=== PATIENT | female | born 1935 | race African-American/Black ===

== ENCOUNTER 2018-08-19 11:18 | Inpatient (IN) | payer MEDICAID, MEDICARE ==
[~2018-08-19] VITALS: Ht 152.4 cm; Wt 59.0 kg
[~2018-08-19 11:18] MED LIST: AMLODIPINE; CETI10TA16 PO; DIAZ2TAB PO; DOXY100T PO; GABA-586 PO; LEVO75TA5 PO; OMEP40CA5 PO; POTA20TA12 PO; PRED50TA PO; SERT50TA8 PO
--- NOTE | 2018-08-19 13:03 | PHYS DOC ---
Past Medical History Past Medical History: Anxiety, COPD, Depression, Hypertension Past Surgical History: Hysterectomy, Other Additional Past Surgical Histo: Thyroidectomy 1992 Alcohol Use: None Drug Use: None Adult General Chief Complaint Chief Complaint: OTHER COMPLAINTS [facility] HPI Patient is a 82 year old female who presents with was diagnosed at with a parotid gland stone. She states that back in June [facility] drained and now it is gotten bigger has not gone down. She states it is hard and painful and bigger. She denies fever,. She does smoke cigarettes. She rates her pain a 6 out of 10. Her primary care is Dr. Khan. She is a allergic to naproxen. She currently takes amlodipine, meclizine, potassium, sertraline, gabapentin, baclofen, levothyroxine. Review of Systems Review of Systems Constitutional: Denies fever or chills [] Eyes: Denies change in visual acuity, redness, or eye pain [] HENT: Large hard golf ball sized right sided parotid gland. Denies nasal congestion or sore throat [] Respiratory: Denies cough or shortness of breath [] Cardiovascular: No additional information not addressed in HPI [] GI: Denies abdominal pain, nausea, vomiting, bloody stools or diarrhea [] : Denies dysuria or hematuria [] Musculoskeletal: Denies back pain or joint pain [] Integument: Denies rash or skin lesions [] Neurologic: Denies headache, focal weakness or sensory changes [] All other systems were reviewed and found to be within normal limits, except as documented in this note. Allergies Allergies Allergies Coded Allergies Type Severity Reaction Last Updated Verified No Known Drug Allergies 07/13/15 No Physical Exam Physical Exam Constitutional: Well developed, well nourished, no acute distress, non-toxic appearance. [] HENT: Golf ball sized right sided parotid gland. Normocephalic, atraumatic, bilateral external ears normal, oropharynx moist, no oral exudates, nose normal. [] Eyes: PERRLA, EOMI, conjunctiva normal, no discharge. [] Neck: Normal range of motion, no tenderness, supple, no stridor. [] Cardiovascular:Heart rate regular rhythm, no murmur [] Lungs & Thorax: Bilateral breath sounds clear to auscultation [] Abdomen: Bowel sounds normal, soft, no tenderness, no masses, no pulsatile masses. [] Skin: Warm, dry, no erythema, no rash. [] Back: No tenderness, no CVA tenderness. [] Extremities: No tenderness, no cyanosis, no clubbing, ROM intact, no edema. [] Neurologic: Alert and oriented X 3, normal motor function, normal sensory function, no focal deficits noted. [] Psychologic: Affect normal, judgement normal, mood normal. [] Current Patient Data Vital Signs Vital Signs Date Time Temp Pulse Resp B/P (MAP) Pulse Ox O2 Delivery O2 Flow Rate FiO2 08/19/18 11:55 98.2 83 20 143/68 (93) 96 Room Air 98.2 Lab Values Laboratory Tests Test 08/19/18 13:30 White Blood Count 6.1 x10^3/uL (4.0-11.0) Red Blood Count 4.47 x10^6/uL (3.50-5.40) Hemoglobin 13.9 g/dL (12.0-15.5) Hematocrit 39.7 % (36.0-47.0) Mean Corpuscular Volume 89 fL (79-100) Mean Corpuscular Hemoglobin 31 pg (25-35) Mean Corpuscular Hemoglobin Concent 35 g/dL (31-37) Red Cell Distribution Width 15.1 % (11.5-14.5) H Platelet Count 356 x10^3/uL (140-400) Neutrophils (%) (Auto) 59 % (31-73) Lymphocytes (%) (Auto) 29 % (24-48) Monocytes (%) (Auto) 8 % (0-9) Eosinophils (%) (Auto) 3 % (0-3) Basophils (%) (Auto) 1 % (0-3) Neutrophils # (Auto) 3.6 x10^3uL (1.8-7.7) Lymphocytes # (Auto) 1.7 x10^3/uL (1.0-4.8) Monocytes # (Auto) 0.5 x10^3/uL (0.0-1.1) Eosinophils # (Auto) 0.2 x10^3/uL (0.0-0.7) Basophils # (Auto) 0.1 x10^3/uL (0.0-0.2) Sodium Level 138 mmol/L (136-145) Potassium Level 3.6 mmol/L (3.5-5.1) Chloride Level 98 mmol/L (98-107) Carbon Dioxide Level 29 mmol/L (21-32) Anion Gap 11 (6-14) Blood Urea Nitrogen 4 mg/dL (7-20) L Creatinine 1.0 mg/dL (0.6-1.0) Estimated GFR (Cockcroft-Gault) 64.1 Glucose Level 119 mg/dL (70-99) H Calcium Level 9.8 mg/dL (8.5-10.1) Laboratory Tests 08/19/18 13:30 Laboratory Tests 08/19/18 13:30 EKG EKG [] Radiology/Procedures Radiology/Procedures [] Impressions: [facility] [address] [place] [address] IMAGING REPORT Signed PATIENT: SHANTA MONDRAGON ACCOUNT: [id number] : 1935 LOCATION: [address] [place] [address] AGE: 82 SEX: F EXAM STATUS: ADM IN ORD. PHYSICIAN: MAIN ATKINSON APRN REASON: PAROTID GLAND LARGE AND HARD PROCEDURE: CT SOFT TISSUE NECK W/CONTRAST CT study soft tissues the neck with contrast Clinical indications: Right parotid gland swelling since June 2018. Right parotid gland is enlarged and hard. TECHNIQUE: After IV infusion of 70 mL of Omnipaque 300, helical CT scanning of the soft tissues the neck was performed from the base of skull down to the lung apices. PQRS compliance Statement One or more of the following individualized dose reduction techniques were utilized for this study: 1. Automated exposure control 2. Adjustment of the mA and/or kV according to patient size 3. Use of iterative reconstruction technique COMPARISON: No previous CT study of the neck available. FINDINGS: There is a large round hypodense mass within the right parotid gland with Hounsfield unit measurements in the 30s. There is peripheral rim type enhancement. This mass measures 3.3 cm in greatest dimension. Mass is located within the superficial lobe of the right parotid gland. Mild subcutaneous soft tissue edema is seen adjacent to the right parotid gland. The left parotid gland and both submandibular salivary glands are unremarkable. No enlarged cervical lymphadenopathy is evident. The adenoids are not abnormally enlarged. No abnormal enlargement of the palatine tonsils is seen. The true cords and false cords and epiglottis and aryepiglottic folds are unremarkable. No prevertebral soft tissue swelling is evident. Calcified lymph nodes are seen within the upper mediastinum secondary to old granulomatous disease. There is emphysema within both upper lobes. No opacification of the paranasal sinuses or mastoid sinuses or middle ear cavities is seen. The orbits are symmetric. IMPRESSION: 3.3 cm hypodense mass of the right parotid gland with peripheral rim type enhancement. Therefore, this could represent an abscess but the central aspect does not demonstrate Hounsfield unit measurements typical of fluid. It is possible that this could represent complex fluid or hemorrhage related to an abscess but sonography is recommended for further evaluation specifically to determine whether fluid is present within the nodule or internal vascularity. i.e. excluding a solid mass. There is no associated enlarged cervical lymphadenopathy. Electronically signed by: Ricardo Palacio MD (08/19/2018 3:13 PM) [facility] [place] DICTATED and SIGNED BY: RICARDO PALACIO MD DATE: 08/19/18 1505 Course & Med Decision Making Course & Med Decision Making Patient is a 82 year old female who presents with was diagnosed at with a parotid gland stone. She states that back in June [facility] drained and now it is gotten bigger has not gone down. She states it is hard and painful and bigger. She denies fever,. She does smoke cigarettes. She rates her pain a 6 out of 10. Her primary care is Dr. Khan. She is a allergic to naproxen. She currently takes amlodipine, meclizine, potassium, sertraline, gabapentin, baclofen, levothyroxine. Patient has a very large, golf ball sized, hard, tender chronic tingling into her right parotid gland. Patient is unable to tell me what her biopsy came back as the did or what her follow-up plan was supposed to be. I' ll patient states that she does not like [facility]. The area is not abscess or draining and does not extend into her oral cavity. The mucosa in her oral cavity is pink and without exudates. I told the patient that we do not currently have ENT at [facility] and that the best thing for her would be to go back to and follow-up with the ENT specialist that she did bear that did her procedures and has all the records. [place] had a ENT Dr. Figueredo on-call today and I have spoken to her and she states that the patient needs to be admitted to the hospital, receive antibiotics, a CT of her neck, and that she will see her either tonight or in the morning and will likely drain the gland. Patient is agreeable to this treatment plan. I have spoken to Dr. Erazo and the patient will be admitted. Dragon Disclaimer Dragon Disclaimer This electronic medical record was generated, in whole or in part, using a voice recognition dictation system. Departure Departure Impression: Primary Impression: Parotid duct obstruction Additional Impression: Parotid gland pain Disposition: ADMITTED INPATIENT Admitting Physician: Xie. Ramirez Condition: STABLE Referrals: ARACELI KHAN MD (PCP) Problem Qualifiers MAIN ATKINSON [employer] Aug 19, 2018 13:03
[2018-08-19 13:42] LABS: BASO # 0.1 x10^3/uL (0.0-0.2); BASO % 1 % (0-3); EOS # 0.2 x10^3/uL (0.0-0.7); EOS % 3 % (0-3); HEMATOCRIT 39.7 % (36.0-47.0); HEMOGLOBIN 13.9 g/dL (12.0-15.5); LYMPH # 1.7 x10^3/uL (1.0-4.8); LYMPH % 29 % (24-48); MEAN CORPUSCULAR HEMOGLOBIN 31 pg (25-35); MEAN CORPUSCULAR HGB CONC 35 g/dL (31-37); MEAN CORPUSCULAR VOLUME 89 fL (79-100); MONO # 0.5 x10^3/uL (0.0-1.1); MONO % 8 % (0-9); NEUT # 3.6 x10^3uL (1.8-7.7); NEUT % 59 % (31-73); PLATELET COUNT 356 x10^3/uL (140-400); RED BLOOD COUNT 4.47 x10^6/uL (3.50-5.40); RED CELL DISTRIBUTION WIDTH 15.1 % (11.5-14.5); WHITE BLOOD COUNT 6.1 x10^3/uL (4.0-11.0)
[2018-08-19] MEDS ORDERED: ONDANSETRON PF 4 MG/2 ML VIAL. IV PRN ×2 (13:45→15:15)
[2018-08-19] MEDS ORDERED: ACETAMINOPHEN 325 MG TABLET. PO PRN ×2 (13:45→15:15)
[2018-08-19] MEDS ORDERED: fentaNYL PF VIAL 100 MCG/2 ML VIAL IV PRN (13:45)
[2018-08-19 13:50] LABS: CALCIUM 9.8 mg/dL (8.5-10.1); GFR 64.1; POTASSIUM 3.6 mmol/L (3.5-5.1)
[2018-08-19] MEDS ORDERED: CLINDAMYCIN 600MG PREMIX 50 ML IV ONE (14:00)
[2018-08-19] MEDS: IV NORMAL SALINE 1000ML BAG 1,000 ML IV SCH (14:06)
[2018-08-19] MEDS ORDERED: CONTRAST GIVEN. MC PRN (14:15)
[2018-08-19] MEDS ORDERED: IOHEXOL 300 MG/ML 100ML VIAL. IV ONE (14:30)
--- NOTE | 2018-08-19 15:12 | PDOC1 ---
History and Physical Date of Admission Date of Admission 08/19/18 Identification/Chief Complaint Chief Complaint rt face swelling Source Source: Chart review, Patient History of Present Illness History of Present Illness HPI HPI Patient is a 82 year old female came for rt face swelling. pt said she started to have rt face swelling end of Jun, it was soft, movable, painful, 6/10 getting bigger. Then she went to , stayed for 4 nights, got drained and said it was not infection or malignancy and they told her it may go away. as per ERP, she was diagnosed at with a parotid gland stone. She saw PCP 3 weeks ago , nothing was done. Pt not wanna go back to . She then feels the nodule gets bigger, hard, not movable, no pain. came to ER. Denies fever, chills, cough, sob, N/V , abd pain. no hearing loss. no skin lesions or discharge. smokes cigarettes sometimes, lost 1-2 lbs recently. Past Medical History Cardiovascular: HTN GI: No pertinent hx Psych: Anxiety, Depression Endocrine: Diabetes, Hypothyroidism Past Surgical History Past Surgical History Hysterectomy, Other Additional Past Surgical Histo: Thyroidectomy 1992 Family History Family History: Hypertension Social History Smoke: <1 pack per day ALCOHOL: none Drugs: None Current Problem List Problem List Problems Medical Problems: (1) Parotid duct obstruction Status: Acute (2) Parotid gland pain Status: Acute Current Medications Current Medications Current Medications Medications (Trade) Dose Ordered Sig/Liyah Start Time Stop Time Status Last Admin Dose Admin Acetaminophen (Tylenol) 650 mg PRN Q4HRS PRN 08/19/18 13:45 08/20/18 13:44 08/19/18 14:08 650 MG Clindamycin Phosphate 50 ml @ 100 mls/hr 1X ONCE 08/19/18 14:00 08/19/18 14:29 DC 08/19/18 14:06 100 MLS/HR Fentanyl Citrate (Fentanyl 2ml Vial) 50 mcg PRN Q2HR PRN 08/19/18 13:45 08/20/18 13:44 08/19/18 14:07 50 MCG Info (CONTRAST GIVEN -- Rx MONITORING) 1 each PRN DAILY PRN 08/19/18 14:15 08/21/18 14:14 Iohexol (Omnipaque 300 Mg/ml) 70 ml 1X ONCE 11/6/18 14:30 08/19/18 14:31 DC 08/19/18 14:29 70 ML Ondansetron HCl (Zofran) 4 mg PRN Q8HRS PRN 08/19/18 13:45 08/20/18 13:44 08/19/18 14:07 4 MG Sodium Chloride 1,000 ml @ 75 mls/hr [id number] 08/19/18 15:00 08/19/18 14:06 75 MLS/HR Allergies Allergies Allergies Coded Allergies Type Severity Reaction Last Updated Verified No Known Drug Allergies 07/13/15 No ROS Review of System CONSTITUTIONAL: No fever or chills EYES: No recent changes SKIN: No rash or itching CARDIOVASCULAR: No chest pain, syncope, palpitations, or edema RESPIRATORY: No SOB or cough GASTROINTESTINAL: No nausea, vomiting or abdominal pain NEUROLOGICAL: No headaches or weakness ENDOCRINE: No cold or heat intolerance GENITOURINARY: No urgency or frequency of urination MUSCULOSKELETAL: No back pain or joint pain LYMPHATICS: No enlarged lymph nodes PSYCHIATRIC: No anxiety or depression Physical Exam Physical Exam GEN.: No apparent distress. Alert and oriented. HEENT: rt face parotid area has a diameter 4x4cm nodule, moderate hard, slightly movable, no tenderness. NECK: Supple. LUNGS: Clear to auscultation. HEART: RRR, S1, S2 present. Peripheral pulses intact ABDOMEN: Soft, nontender. Positive bowel sounds. EXTREMITIES: Without any cyanosis. NEUROLOGIC: Normal speech, normal tone PSYCHIATRIC: Normal affect, normal mood. SKIN: No ulcerations Vitals Vitals Vital Signs Date Time Temp Pulse Resp B/P (MAP) Pulse Ox O2 Delivery O2 Flow Rate FiO2 08/19/18 14:07 20 08/19/18 11:55 98.2 83 143/68 (93) 96 Room Air 98.2 Labs Labs Laboratory Tests Test 08/19/18 13:30 White Blood Count 6.1 x10^3/uL (4.0-11.0) Red Blood Count 4.47 x10^6/uL (3.50-5.40) Hemoglobin 13.9 g/dL (12.0-15.5) Hematocrit 39.7 % (36.0-47.0) Mean Corpuscular Volume 89 fL (79-100) Mean Corpuscular Hemoglobin 31 pg (25-35) Mean Corpuscular Hemoglobin Concent 35 g/dL (31-37) Red Cell Distribution Width 15.1 % (11.5-14.5) Platelet Count 356 x10^3/uL (140-400) Neutrophils (%) (Auto) 59 % (31-73) Lymphocytes (%) (Auto) 29 % (24-48) Monocytes (%) (Auto) 8 % (0-9) Eosinophils (%) (Auto) 3 % (0-3) Basophils (%) (Auto) 1 % (0-3) Neutrophils # (Auto) 3.6 x10^3uL (1.8-7.7) Lymphocytes # (Auto) 1.7 x10^3/uL (1.0-4.8) Monocytes # (Auto) 0.5 x10^3/uL (0.0-1.1) Eosinophils # (Auto) 0.2 x10^3/uL (0.0-0.7) Basophils # (Auto) 0.1 x10^3/uL (0.0-0.2) Sodium Level 138 mmol/L (136-145) Potassium Level 3.6 mmol/L (3.5-5.1) Chloride Level 98 mmol/L (98-107) Carbon Dioxide Level 29 mmol/L (21-32) Anion Gap 11 (6-14) Blood Urea Nitrogen 4 mg/dL (7-20) Creatinine 1.0 mg/dL (0.6-1.0) Estimated GFR (Cockcroft-Gault) 64.1 Glucose Level 119 mg/dL (70-99) Calcium Level 9.8 mg/dL (8.5-10.1) Laboratory Tests Test 08/19/18 13:30 White Blood Count 6.1 x10^3/uL (4.0-11.0) Red Blood Count 4.47 x10^6/uL (3.50-5.40) Hemoglobin 13.9 g/dL (12.0-15.5) Hematocrit 39.7 % (36.0-47.0) Mean Corpuscular Volume 89 fL (79-100) Mean Corpuscular Hemoglobin 31 pg (25-35) Mean Corpuscular Hemoglobin Concent 35 g/dL (31-37) Red Cell Distribution Width 15.1 % (11.5-14.5) Platelet Count 356 x10^3/uL (140-400) Neutrophils (%) (Auto) 59 % (31-73) Lymphocytes (%) (Auto) 29 % (24-48) Monocytes (%) (Auto) 8 % (0-9) Eosinophils (%) (Auto) 3 % (0-3) Basophils (%) (Auto) 1 % (0-3) Neutrophils # (Auto) 3.6 x10^3uL (1.8-7.7) Lymphocytes # (Auto) 1.7 x10^3/uL (1.0-4.8) Monocytes # (Auto) 0.5 x10^3/uL (0.0-1.1) Eosinophils # (Auto) 0.2 x10^3/uL (0.0-0.7) Basophils # (Auto) 0.1 x10^3/uL (0.0-0.2) Sodium Level 138 mmol/L (136-145) Potassium Level 3.6 mmol/L (3.5-5.1) Chloride Level 98 mmol/L (98-107) Carbon Dioxide Level 29 mmol/L (21-32) Anion Gap 11 (6-14) Blood Urea Nitrogen 4 mg/dL (7-20) Creatinine 1.0 mg/dL (0.6-1.0) Estimated GFR (Cockcroft-Gault) 64.1 Glucose Level 119 mg/dL (70-99) Calcium Level 9.8 mg/dL (8.5-10.1) VTE Prophylaxis Ordered VTE Prophylaxis Devices: Yes VTE Pharmacological Prophylaxi: No Assessment/Plan Assessment/Plan rt facial/parotid swelling, not clear etiology HTN COPD stable depression hypothyroidism tobaccoism plan: ER [employer] called ENT dr. Figueredo, ordered ct neck , result pending, will come to see pt need verify home meds labetolol, albuterol prn npo for now incase need bx if not can eat later then NPO MN dvt ppx tmr LUIGI ZAPATA MD Aug 19, 2018 15:12
[2018-08-19] MEDS ORDERED: traMADol 50 MG TABLET PO PRN (15:15)
[2018-08-19] MEDS ORDERED: ALBUTEROL SULFATE 2.5 MG/3 ML NEBU. NEB PRN (15:15)
[2018-08-19] MEDS ORDERED: MORPHINE SULFATE 2 MG/ML VIAL. IV PRN (15:15)
[2018-08-19] MEDS ORDERED: LABETALOL 20 MG/4 ML DISP.SYRIN. IVP PRN (15:15)
[2018-08-19] MEDS ORDERED: DOCUSATE SODIUM 100 MG CAPSULE. PO PRN (15:15)
--- NOTE | 2018-08-19 15:17 | RAD ---
CT study soft tissues the neck with contrast Clinical indications: Right parotid gland swelling since June 2018. Right parotid gland is enlarged and hard. TECHNIQUE: After IV infusion of 70 mL of Omnipaque 300, helical CT scanning of the soft tissues the neck was performed from the base of skull down to the lung apices. PQRS compliance Statement One or more of the following individualized dose reduction techniques were utilized for this study: 1. Automated exposure control 2. Adjustment of the mA and/or kV according to patient size 3. Use of iterative reconstruction technique COMPARISON: No previous CT study of the neck available. FINDINGS: There is a large round hypodense mass within the right parotid gland with Hounsfield unit measurements in the 30s. There is peripheral rim type enhancement. This mass measures 3.3 cm in greatest dimension. Mass is located within the superficial lobe of the right parotid gland. Mild subcutaneous soft tissue edema is seen adjacent to the right parotid gland. The left parotid gland and both submandibular salivary glands are unremarkable. No enlarged cervical lymphadenopathy is evident. The adenoids are not abnormally enlarged. No abnormal enlargement of the palatine tonsils is seen. The true cords and false cords and epiglottis and aryepiglottic folds are unremarkable. No prevertebral soft tissue swelling is evident. Calcified lymph nodes are seen within the upper mediastinum secondary to old granulomatous disease. There is emphysema within both upper lobes. No opacification of the paranasal sinuses or mastoid sinuses or middle ear cavities is seen. The orbits are symmetric. IMPRESSION: 3.3 cm hypodense mass of the right parotid gland with peripheral rim type enhancement. Therefore, this could represent an abscess but the central aspect does not demonstrate Hounsfield unit measurements typical of fluid. It is possible that this could represent complex fluid or hemorrhage related to an abscess but sonography is recommended for further evaluation specifically to determine whether fluid is present within the nodule or internal vascularity. i.e. excluding a solid mass. There is no associated enlarged cervical lymphadenopathy. Electronically signed by: Saeed Palacio MD (08/19/2018 3:13 PM) [facility] [place]
--- NOTE | 2018-08-19 16:56 | RAD ---
Right neck ultrasound, 08/19/2018: HISTORY: Right parotid mass The area of clinical concern was carefully scanned. There is a 3.2 x 2.6 x 3.0 cm hypoechoic mass in the right parotid gland as also noted on the current CT study. There are mildly heterogeneous low level internal echoes with a probable cyst within septation. No internal color flow is seen. The appearance suggests complex fluid. In one area there is a suggestion of a tiny tract heading toward the skin. IMPRESSION: The patient's known right parotid mass appears to represent a complex fluid collection, most likely an abscess. An old hematoma or necrotic neoplasm are less likely possibilities. Electronically signed by: Robert Sahni MD (08/19/2018 4:53 PM) [facility]
[2018-08-19 19:20] VITALS: BP 112/60
[2018-08-19 23:21] VITALS: BP 129/68
[2018-08-20 03:12] VITALS: BP 120/62
[2018-08-20] MEDS: IV NORMAL SALINE 1000ML BAG 1,000 ML IV SCH (04:20)
[2018-08-20 04:51] LABS: CALCIUM 8.8 mg/dL (8.5-10.1); CREATININE 1.1 mg/dL (0.6-1.0); GFR 57.4; POTASSIUM 3.8 mmol/L (3.5-5.1)
[2018-08-20 05:04] LABS: BASO # 0.1 x10^3/uL (0.0-0.2); BASO % 1 % (0-3); EOS # 0.3 x10^3/uL (0.0-0.7); EOS % 5 % (0-3); HEMOGLOBIN 12.6 g/dL (12.0-15.5); LYMPH % 36 % (24-48); MEAN CORPUSCULAR HEMOGLOBIN 31 pg (25-35); MEAN CORPUSCULAR HGB CONC 34 g/dL (31-37); MEAN CORPUSCULAR VOLUME 90 fL (79-100); MONO # 0.7 x10^3/uL (0.0-1.1); MONO % 12 % (0-9); NEUT # 2.7 x10^3uL (1.8-7.7); NEUT % 47 % (31-73); PLATELET COUNT 304 x10^3/uL (140-400); RED BLOOD COUNT 4.11 x10^6/uL (3.50-5.40); RED CELL DISTRIBUTION WIDTH 15.1 % (11.5-14.5); WHITE BLOOD COUNT 5.7 x10^3/uL (4.0-11.0)
[2018-08-20 07:00] VITALS: BP 156/85
--- NOTE | 2018-08-20 09:16 | PDOC2 ---
CONSULT Date of Consult Date of Consult DATE: 08/19/2018 TIME: 22:00 Reason for Consult Reason for Consult: right parotid swelling Identification/Chief Complaint Chief Complaint right parotid swelling History of Present Illness Reason for Visit: 82 year old female presented to ER today for evaluation of right facial/parotid gland swelling. Patient reports began to first notice swelling in June 2018. She was seen and admitted to for evaluation. She reports undergoing drainage of cyst at that time. She reports that she was told that would like resolve. However, swelling has slowly recurred. She reports no acute worsening of swelling over the past several days. She reports that at time of drainage-- cyst fluid found. No sean infection. She was unhappy with care at and wanted to obtain second opinion. Therefore, presented to our ER today. Patient denies any mouth pain, sinus pressure, facial weakness. Overall, she reports no complaints except slow growth of right facial cyst. Past Medical History Cardiovascular: HTN GI: No pertinent hx Psych: Anxiety, Depression Musculoskeletal: low back pain Endocrine: Diabetes, Hypothyroidism Past Surgical History Past Surgical History: Hysterectomy, Other (thyroidectomy - 1992) Family History Family History: Hypertension Social History <1 pack per day ALCOHOL: none Drugs: None Current Problem List Problem List Problems Medical Problems: (1) Parotid duct obstruction Status: Acute (2) Parotid gland pain Status: Acute Current Medications Current Medications Current Medications Ondansetron HCl (Zofran) 4 mg PRN Q8HRS PRN IV NAUSEA/VOMITING Last administered on 08/19/18at 14:07; Start 08/19/18 at 13:45; Stop 08/19/18 at 15:16 ; Status DC Fentanyl Citrate (Fentanyl 2ml Vial) 50 mcg PRN Q2HR PRN IV PAIN Last administered on 08/19/18at 14:07; Start 08/19/18 at 13:45; Stop 08/20/18 at 13:44 Acetaminophen (Tylenol) 650 mg PRN Q4HRS PRN PO FEVER Last administered on 08/19at 14:08; Start 08/19/18 at 13:45; Stop 08/19/18 at 15:16; Status DC Sodium Chloride 1,000 ml @ 75 mls/hr [id number] IV Last administered on at 04:20; Start 08/19/18 at 15:00 Clindamycin Phosphate 50 ml @ 100 mls/hr 1X ONCE IV Last administered on 08/19at 14:06; Start 08/19/18 at 14:00; Stop 08/19/18 at 14:29; Status DC Iohexol (Omnipaque 300 Mg/ml) 70 ml 1X ONCE IV Last administered on 08/19/18at 14:29; Start 08/19/18 at 14:30; Stop 08/19/18 at 14:31; Status DC Info (CONTRAST GIVEN -- Rx MONITORING) 1 each PRN DAILY PRN MC SEE COMMENTS; Start 08/19/18 at 14:15; Stop 08/21/18 at 14:14 Acetaminophen (Tylenol) 650 mg PRN Q6HRS PRN PO FEVER; Start 08/19/18 at 15:15 Ondansetron HCl (Zofran) 4 mg PRN Q6HRS PRN IV NAUSEA/VOMITING; Start 08/19/18 at 15:15 Morphine Sulfate (Morphine Sulfate) 2 mg PRN Q2HR PRN IV MODERATE TO SEVERE PAIN; Start 08/19/18 at 15:15 Tramadol HCl (Ultram) 50 mg PRN Q6HRS PRN PO MILD TO MODERATE PAIN; Start 08/19 at 15:15 Docusate Sodium (Colace) 100 mg PRN DAILY PRN PO CONSTIPATION; Start 08/19/18 at 15:15 Albuterol Sulfate (Ventolin Neb Soln) 2.5 mg PRN Q4HRS PRN NEB SHORTNESS OF BREATH; Start 08/19/18 at 15:15 Labetalol HCl (Normodyne Iv Push) 20 mg PRN Q2HR PRN IVP HYPERTENSION, SEE COMMENTS; Start 08/19/18 at 15:15 Active Scripts Active Reported Doxycycline Hyclate 100 Mg Tablet 1 Tab PO BID Prednisone 50 Mg Tablet 60 Mg PO 1X 60mg today 30mg Saturday 20mg Saturday 10mg Saturday Sertraline Hcl 50 Mg Tablet 50 Mg PO HS Omeprazole 40 Mg Capsule.dr 1 Cap PO DAILY Potassium Chloride 20 Meq Tab.er.prt 1 Tab PO BID Valium (Diazepam) 2 Mg Tablet 1 Tab PO BID PRN [amlodipine 10-160mg] 10-160 1 DAILY08 Levothyroxine Sodium 75 Mcg Tablet 1 Tab PO DAILY Cetirizine Hcl 10 Mg Tablet 1 Tab PO DAILY Gabapentin 300 Mg Capsule 1 Cap PO TID Allergies Allergies: Coded Allergies: No Known Drug Allergies (Unverified , 07/13/15) ROS General: No: Chills, Night Sweats, Fatigue, Malaise, Appetite, Other PSYCHOLOGICAL ROS: No: Anxiety, Behavioral Disorder, Concentration difficultie , Decreased libido, Depression, Disorientation, Hallucinations, Hostility, Irritablity, Memory difficulties, Mood Swings, Obsessive thoughts, Physical abuse, Sexual abuse, Sleep disturbances, Suicidal ideation, Other Eyes: No Blurry vision, No Decreased vision, No Double vision, No Dry eyes, No Excessive tearing, No Eye Pain, No Itchy Eyes, No Loss of vision, No Photophobia , No Scotomata, No Uses contacts, No Uses glasses, No Other ALLERGY AND IMMUNOLOGY: No: Hives, Insect Bite Sensitivity, Itchy/Watery Eyes, Nasal Congestion, Post Nasal Drip, Seasonal Allergies, Other Hematological and Lymphatic: No: Bleeding Problems, Blood Clots, Blood Transfusions, Brusing, Night Sweats, Pallor, Swollen Lymph Nodes, Other Respiratory: No: Cough, Hemoptysis, Orthopnea, Pleuritic Pain, Shortness of breath, SOB with excertion, Sputum Changes, Stridor, Tachypnea, Wheezing, Other Cardiovascular: No Chest Pain, No Palpitations, No Orthopnea, No Paroxysmal Noc. Dyspnea, No Edema, No Lt Headedness, No Other Gastrointestinal: No Nausea, No Vomiting, No Abdominal Pain, No Diarrhea, No Constipation, No Melena, No Hematochezia, No Other Physical Exam General: Alert, Oriented X3, Cooperative, No acute distress HEENT: Atraumatic, PERRLA, EOMI, Other (Nose: septum relatively midline, normal turbinates; Ears: ear canal normal, tympanic membrane; Face: severe enlargement of superficial cyst of right parotid, extends underneath lobule, measures >4cm, no overlying skin changes, no cervical lymphadenopathy; Oral Cavity/Oropharynx: Normal appears to stensen's duct, no palpable stones, dentition okay, no mucosal lesions seen) Vitals VITALS Vital Signs Date Time Temp Pulse Resp B/P (MAP) Pulse Ox O2 Delivery O2 Flow Rate FiO2 08/20/18 07:00 98.1 88 20 156/85 (108) 90 Room Air 98.1 Labs Labs Laboratory Tests Test 08/19/18 13:30 08/20/18 03:10 White Blood Count 6.1 x10^3/uL (4.0-11.0) 5.7 x10^3/uL (4.0-11.0) Red Blood Count 4.47 x10^6/uL (3.50-5.40) 4.11 x10^6/uL (3.50-5.40) Hemoglobin 13.9 g/dL (12.0-15.5) 12.6 g/dL (12.0-15.5) Hematocrit 39.7 % (36.0-47.0) 37.0 % (36.0-47.0) Mean Corpuscular Volume 89 fL (79-100) 90 fL (79-100) Mean Corpuscular Hemoglobin 31 pg (25-35) 31 pg (25-35) Mean Corpuscular Hemoglobin Concent 35 g/dL (31-37) 34 g/dL (31-37) Red Cell Distribution Width 15.1 % (11.5-14.5) 15.1 % (11.5-14.5) Platelet Count 356 x10^3/uL (140-400) 304 x10^3/uL (140-400) Neutrophils (%) (Auto) 59 % (31-73) 47 % (31-73) Lymphocytes (%) (Auto) 29 % (24-48) 36 % (24-48) Monocytes (%) (Auto) 8 % (0-9) 12 % (0-9) Eosinophils (%) (Auto) 3 % (0-3) 5 % (0-3) Basophils (%) (Auto) 1 % (0-3) 1 % (0-3) Neutrophils # (Auto) 3.6 x10^3uL (1.8-7.7) 2.7 x10^3uL (1.8-7.7) Lymphocytes # (Auto) 1.7 x10^3/uL (1.0-4.8) 2.0 x10^3/uL (1.0-4.8) Monocytes # (Auto) 0.5 x10^3/uL (0.0-1.1) 0.7 x10^3/uL (0.0-1.1) Eosinophils # (Auto) 0.2 x10^3/uL (0.0-0.7) 0.3 x10^3/uL (0.0-0.7) Basophils # (Auto) 0.1 x10^3/uL (0.0-0.2) 0.1 x10^3/uL (0.0-0.2) Sodium Level 138 mmol/L (136-145) 144 mmol/L (136-145) Potassium Level 3.6 mmol/L (3.5-5.1) 3.8 mmol/L (3.5-5.1) Chloride Level 98 mmol/L (98-107) 104 mmol/L (98-107) Carbon Dioxide Level 29 mmol/L (21-32) 31 mmol/L (21-32) Anion Gap 11 (6-14) 9 (6-14) Blood Urea Nitrogen 4 mg/dL (7-20) 4 mg/dL (7-20) Creatinine 1.0 mg/dL (0.6-1.0) 1.1 mg/dL (0.6-1.0) Estimated GFR (Cockcroft-Gault) 64.1 57.4 Glucose Level 119 mg/dL (70-99) 92 mg/dL (70-99) Calcium Level 9.8 mg/dL (8.5-10.1) 8.8 mg/dL (8.5-10.1) Laboratory Tests Test 08/19/18 13:30 08/20/18 03:10 White Blood Count 6.1 x10^3/uL (4.0-11.0) 5.7 x10^3/uL (4.0-11.0) Red Blood Count 4.47 x10^6/uL (3.50-5.40) 4.11 x10^6/uL (3.50-5.40) Hemoglobin 13.9 g/dL (12.0-15.5) 12.6 g/dL (12.0-15.5) Hematocrit 39.7 % (36.0-47.0) 37.0 % (36.0-47.0) Mean Corpuscular Volume 89 fL (79-100) 90 fL (79-100) Mean Corpuscular Hemoglobin 31 pg (25-35) 31 pg (25-35) Mean Corpuscular Hemoglobin Concent 35 g/dL (31-37) 34 g/dL (31-37) Red Cell Distribution Width 15.1 % (11.5-14.5) 15.1 % (11.5-14.5) Platelet Count 356 x10^3/uL (140-400) 304 x10^3/uL (140-400) Neutrophils (%) (Auto) 59 % (31-73) 47 % (31-73) Lymphocytes (%) (Auto) 29 % (24-48) 36 % (24-48) Monocytes (%) (Auto) 8 % (0-9) 12 % (0-9) Eosinophils (%) (Auto) 3 % (0-3) 5 % (0-3) Basophils (%) (Auto) 1 % (0-3) 1 % (0-3) Neutrophils # (Auto) 3.6 x10^3uL (1.8-7.7) 2.7 x10^3uL (1.8-7.7) Lymphocytes # (Auto) 1.7 x10^3/uL (1.0-4.8) 2.0 x10^3/uL (1.0-4.8) Monocytes # (Auto) 0.5 x10^3/uL (0.0-1.1) 0.7 x10^3/uL (0.0-1.1) Eosinophils # (Auto) 0.2 x10^3/uL (0.0-0.7) 0.3 x10^3/uL (0.0-0.7) Basophils # (Auto) 0.1 x10^3/uL (0.0-0.2) 0.1 x10^3/uL (0.0-0.2) Sodium Level 138 mmol/L (136-145) 144 mmol/L (136-145) Potassium Level 3.6 mmol/L (3.5-5.1) 3.8 mmol/L (3.5-5.1) Chloride Level 98 mmol/L (98-107) 104 mmol/L (98-107) Carbon Dioxide Level 29 mmol/L (21-32) 31 mmol/L (21-32) Anion Gap 11 (6-14) 9 (6-14) Blood Urea Nitrogen 4 mg/dL (7-20) 4 mg/dL (7-20) Creatinine 1.0 mg/dL (0.6-1.0) 1.1 mg/dL (0.6-1.0) Estimated GFR (Cockcroft-Gault) 64.1 57.4 Glucose Level 119 mg/dL (70-99) 92 mg/dL (70-99) Calcium Level 9.8 mg/dL (8.5-10.1) 8.8 mg/dL (8.5-10.1) Images Images CT Neck 08-19-2018: 3.3 cm hypodense mass of the right parotid gland with peripheral rim type enhancement. Therefore, this could represent an abscess but the central aspect does not demonstrate Hounsfield unit measurements typical of fluid. 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 Etiologies include: infectious, neoplasm (benign vs malignant) with cystic components, subcutaneous skin lesion. - Plan to aspirate and send slides for cytologic evaluation tomorrow, 2017 around lunchtime. If sean infectious debris noted, will likely need formal I&D. - If not infectious, patient will likely need excision in future. Will plan for discharge and close follow up with myself to arrange surgical treatment. AURE SKAGGS MD Aug 20, 2018 09:16
[2018-08-20 11:00] VITALS: BP 137/79
--- NOTE | 2018-08-20 12:15 | PDOC ---
PROGRESS NOTES Chief Complaint Chief Complaint rt facial/parotid swelling, not clear etiology, US showed complex fluid collection possible Abscess HTN COPD stable depression hypothyroidism tobaccoism plan: ER [employer] called ENT dr. Figueredo, will do bx today. if abscess , will add abx. no abx for now given no fever, no wbc and got drained in [facility] before saying no infection. need verify home meds labetolol, albuterol prn npo for now for bx. dvt ppx tmr. History of Present Illness History of Present Illness US :right parotid mass appears to represent a complex fluid collection, most likely an abscess. An old hematoma or necrotic neoplasm are less likely possibilities pt has no facial pain, no fever or leukocytosis Vitals Vitals Vital Signs Date Time Temp Pulse Resp B/P (MAP) Pulse Ox O2 Delivery O2 Flow Rate FiO2 08/20/18 11:00 98.2 79 20 137/79 (98) 91 Room Air 98.2 Physical Exam Physical Exam rt parotid has a nodule 4x4 cm , hard, little movable General: Alert, Oriented X3, Cooperative, No acute distress Heart: Regular rate, Normal S1, Normal S2 Lungs: Clear Abdomen: Normal bowel sounds, Soft, No tenderness Extremities: No clubbing, No cyanosis Skin: No rashes Labs LABS Laboratory Tests Test 08/19/18 13:30 08/20/18 03:10 White Blood Count 6.1 x10^3/uL (4.0-11.0) 5.7 x10^3/uL (4.0-11.0) Red Blood Count 4.47 x10^6/uL (3.50-5.40) 4.11 x10^6/uL (3.50-5.40) Hemoglobin 13.9 g/dL (12.0-15.5) 12.6 g/dL (12.0-15.5) Hematocrit 39.7 % (36.0-47.0) 37.0 % (36.0-47.0) Mean Corpuscular Volume 89 fL (79-100) 90 fL (79-100) Mean Corpuscular Hemoglobin 31 pg (25-35) 31 pg (25-35) Mean Corpuscular Hemoglobin Concent 35 g/dL (31-37) 34 g/dL (31-37) Red Cell Distribution Width 15.1 % (11.5-14.5) 15.1 % (11.5-14.5) Platelet Count 356 x10^3/uL (140-400) 304 x10^3/uL (140-400) Neutrophils (%) (Auto) 59 % (31-73) 47 % (31-73) Lymphocytes (%) (Auto) 29 % (24-48) 36 % (24-48) Monocytes (%) (Auto) 8 % (0-9) 12 % (0-9) Eosinophils (%) (Auto) 3 % (0-3) 5 % (0-3) Basophils (%) (Auto) 1 % (0-3) 1 % (0-3) Neutrophils # (Auto) 3.6 x10^3uL (1.8-7.7) 2.7 x10^3uL (1.8-7.7) Lymphocytes # (Auto) 1.7 x10^3/uL (1.0-4.8) 2.0 x10^3/uL (1.0-4.8) Monocytes # (Auto) 0.5 x10^3/uL (0.0-1.1) 0.7 x10^3/uL (0.0-1.1) Eosinophils # (Auto) 0.2 x10^3/uL (0.0-0.7) 0.3 x10^3/uL (0.0-0.7) Basophils # (Auto) 0.1 x10^3/uL (0.0-0.2) 0.1 x10^3/uL (0.0-0.2) Sodium Level 138 mmol/L (136-145) 144 mmol/L (136-145) Potassium Level 3.6 mmol/L (3.5-5.1) 3.8 mmol/L (3.5-5.1) Chloride Level 98 mmol/L (98-107) 104 mmol/L (98-107) Carbon Dioxide Level 29 mmol/L (21-32) 31 mmol/L (21-32) Anion Gap 11 (6-14) 9 (6-14) Blood Urea Nitrogen 4 mg/dL (7-20) 4 mg/dL (7-20) Creatinine 1.0 mg/dL (0.6-1.0) 1.1 mg/dL (0.6-1.0) Estimated GFR (Cockcroft-Gault) 64.1 57.4 Glucose Level 119 mg/dL (70-99) 92 mg/dL (70-99) Calcium Level 9.8 mg/dL (8.5-10.1) 8.8 mg/dL (8.5-10.1) Assessment and Plan Assessmemt and Plan Problems Medical Problems: (1) Parotid duct obstruction Status: Acute (2) Parotid gland pain Status: Acute Comment Review of Relevant I have reviewed the following items eliel (where applicable) has been applied. Labs Laboratory Tests Test 08/19/18 13:30 08/20/18 03:10 White Blood Count 6.1 x10^3/uL (4.0-11.0) 5.7 x10^3/uL (4.0-11.0) Red Blood Count 4.47 x10^6/uL (3.50-5.40) 4.11 x10^6/uL (3.50-5.40) Hemoglobin 13.9 g/dL (12.0-15.5) 12.6 g/dL (12.0-15.5) Hematocrit 39.7 % (36.0-47.0) 37.0 % (36.0-47.0) Mean Corpuscular Volume 89 fL (79-100) 90 fL (79-100) Mean Corpuscular Hemoglobin 31 pg (25-35) 31 pg (25-35) Mean Corpuscular Hemoglobin Concent 35 g/dL (31-37) 34 g/dL (31-37) Red Cell Distribution Width 15.1 % (11.5-14.5) 15.1 % (11.5-14.5) Platelet Count 356 x10^3/uL (140-400) 304 x10^3/uL (140-400) Neutrophils (%) (Auto) 59 % (31-73) 47 % (31-73) Lymphocytes (%) (Auto) 29 % (24-48) 36 % (24-48) Monocytes (%) (Auto) 8 % (0-9) 12 % (0-9) Eosinophils (%) (Auto) 3 % (0-3) 5 % (0-3) Basophils (%) (Auto) 1 % (0-3) 1 % (0-3) Neutrophils # (Auto) 3.6 x10^3uL (1.8-7.7) 2.7 x10^3uL (1.8-7.7) Lymphocytes # (Auto) 1.7 x10^3/uL (1.0-4.8) 2.0 x10^3/uL (1.0-4.8) Monocytes # (Auto) 0.5 x10^3/uL (0.0-1.1) 0.7 x10^3/uL (0.0-1.1) Eosinophils # (Auto) 0.2 x10^3/uL (0.0-0.7) 0.3 x10^3/uL (0.0-0.7) Basophils # (Auto) 0.1 x10^3/uL (0.0-0.2) 0.1 x10^3/uL (0.0-0.2) Sodium Level 138 mmol/L (136-145) 144 mmol/L (136-145) Potassium Level 3.6 mmol/L (3.5-5.1) 3.8 mmol/L (3.5-5.1) Chloride Level 98 mmol/L (98-107) 104 mmol/L (98-107) Carbon Dioxide Level 29 mmol/L (21-32) 31 mmol/L (21-32) Anion Gap 11 (6-14) 9 (6-14) Blood Urea Nitrogen 4 mg/dL (7-20) 4 mg/dL (7-20) Creatinine 1.0 mg/dL (0.6-1.0) 1.1 mg/dL (0.6-1.0) Estimated GFR (Cockcroft-Gault) 64.1 57.4 Glucose Level 119 mg/dL (70-99) 92 mg/dL (70-99) Calcium Level 9.8 mg/dL (8.5-10.1) 8.8 mg/dL (8.5-10.1) Laboratory Tests Test 08/19/18 13:30 08/20/18 03:10 White Blood Count 6.1 x10^3/uL (4.0-11.0) 5.7 x10^3/uL (4.0-11.0) Red Blood Count 4.47 x10^6/uL (3.50-5.40) 4.11 x10^6/uL (3.50-5.40) Hemoglobin 13.9 g/dL (12.0-15.5) 12.6 g/dL (12.0-15.5) Hematocrit 39.7 % (36.0-47.0) 37.0 % (36.0-47.0) Mean Corpuscular Volume 89 fL (79-100) 90 fL (79-100) Mean Corpuscular Hemoglobin 31 pg (25-35) 31 pg (25-35) Mean Corpuscular Hemoglobin Concent 35 g/dL (31-37) 34 g/dL (31-37) Red Cell Distribution Width 15.1 % (11.5-14.5) 15.1 % (11.5-14.5) Platelet Count 356 x10^3/uL (140-400) 304 x10^3/uL (140-400) Neutrophils (%) (Auto) 59 % (31-73) 47 % (31-73) Lymphocytes (%) (Auto) 29 % (24-48) 36 % (24-48) Monocytes (%) (Auto) 8 % (0-9) 12 % (0-9) Eosinophils (%) (Auto) 3 % (0-3) 5 % (0-3) Basophils (%) (Auto) 1 % (0-3) 1 % (0-3) Neutrophils # (Auto) 3.6 x10^3uL (1.8-7.7) 2.7 x10^3uL (1.8-7.7) Lymphocytes # (Auto) 1.7 x10^3/uL (1.0-4.8) 2.0 x10^3/uL (1.0-4.8) Monocytes # (Auto) 0.5 x10^3/uL (0.0-1.1) 0.7 x10^3/uL (0.0-1.1) Eosinophils # (Auto) 0.2 x10^3/uL (0.0-0.7) 0.3 x10^3/uL (0.0-0.7) Basophils # (Auto) 0.1 x10^3/uL (0.0-0.2) 0.1 x10^3/uL (0.0-0.2) Sodium Level 138 mmol/L (136-145) 144 mmol/L (136-145) Potassium Level 3.6 mmol/L (3.5-5.1) 3.8 mmol/L (3.5-5.1) Chloride Level 98 mmol/L (98-107) 104 mmol/L (98-107) Carbon Dioxide Level 29 mmol/L (21-32) 31 mmol/L (21-32) Anion Gap 11 (6-14) 9 (6-14) Blood Urea Nitrogen 4 mg/dL (7-20) 4 mg/dL (7-20) Creatinine 1.0 mg/dL (0.6-1.0) 1.1 mg/dL (0.6-1.0) Estimated GFR (Cockcroft-Gault) 64.1 57.4 Glucose Level 119 mg/dL (70-99) 92 mg/dL (70-99) Calcium Level 9.8 mg/dL (8.5-10.1) 8.8 mg/dL (8.5-10.1) Medications Current Medications Ondansetron HCl (Zofran) 4 mg PRN Q8HRS PRN IV NAUSEA/VOMITING Last administered on 08/19/18at 14:07; Start 08/19/18 at 13:45; Stop 08/19/18 at 15:16 ; Status DC Fentanyl Citrate (Fentanyl 2ml Vial) 50 mcg PRN Q2HR PRN IV PAIN Last administered on 08/19/18at 14:07; Start 08/19/18 at 13:45; Stop 08/20/18 at 13:44 Acetaminophen (Tylenol) 650 mg PRN Q4HRS PRN PO FEVER Last administered on 08/19at 14:08; Start 08/19/18 at 13:45; Stop 08/19/18 at 15:16; Status DC Sodium Chloride 1,000 ml @ 75 mls/hr [id number] IV Last administered on at 04:20; Start 08/19/18 at 15:00 Clindamycin Phosphate 50 ml @ 100 mls/hr 1X ONCE IV Last administered on 08/19at 14:06; Start 08/19/18 at 14:00; Stop 08/19/18 at 14:29; Status DC Iohexol (Omnipaque 300 Mg/ml) 70 ml 1X ONCE IV Last administered on 08/19/18at 14:29; Start 08/19/18 at 14:30; Stop 08/19/18 at 14:31; Status DC Info (CONTRAST GIVEN -- Rx MONITORING) 1 each PRN DAILY PRN MC SEE COMMENTS; Start 08/19/18 at 14:15; Stop 08/21/18 at 14:14 Acetaminophen (Tylenol) 650 mg PRN Q6HRS PRN PO FEVER; Start 08/19/18 at 15:15 Ondansetron HCl (Zofran) 4 mg PRN Q6HRS PRN IV NAUSEA/VOMITING; Start 08/19/18 at 15:15 Morphine Sulfate (Morphine Sulfate) 2 mg PRN Q2HR PRN IV MODERATE TO SEVERE PAIN; Start 08/19/18 at 15:15 Tramadol HCl (Ultram) 50 mg PRN Q6HRS PRN PO MILD TO MODERATE PAIN; Start 08/19 at 15:15 Docusate Sodium (Colace) 100 mg PRN DAILY PRN PO CONSTIPATION; Start 08/19/18 at 15:15 Albuterol Sulfate (Ventolin Neb Soln) 2.5 mg PRN Q4HRS PRN NEB SHORTNESS OF BREATH; Start 08/19/18 at 15:15 Labetalol HCl (Normodyne Iv Push) 20 mg PRN Q2HR PRN IVP HYPERTENSION, SEE COMMENTS; Start 08/19/18 at 15:15 Active Scripts Active Reported Doxycycline Hyclate 100 Mg Tablet 1 Tab PO BID Prednisone 50 Mg Tablet 60 Mg PO 1X 60mg today 30mg Saturday 20mg Saturday 10mg Saturday Sertraline Hcl 50 Mg Tablet 50 Mg PO HS Omeprazole 40 Mg Capsule.dr 1 Cap PO DAILY Potassium Chloride 20 Meq Tab.er.prt 1 Tab PO BID Valium (Diazepam) 2 Mg Tablet 1 Tab PO BID PRN [amlodipine 10-160mg] 10-160 1 DAILY08 Levothyroxine Sodium 75 Mcg Tablet 1 Tab PO DAILY Cetirizine Hcl 10 Mg Tablet 1 Tab PO DAILY Gabapentin 300 Mg Capsule 1 Cap PO TID Vitals/I & O Vital Sign - Last 24 Hours 08/19/18 08/19/18 08/19/18 11/6/18 12:30 13:00 13:30 14:00 Pulse 72 82 74 74 Resp 21 18 16 16 B/P (MAP) 118/58 (78) 132/64 (86) 140/66 (90) 138/58 (84) Pulse Ox 98 96 97 96 O2 Delivery Room Air Room Air Room Air Room Air 08/19/18 08/19/18 08/19/18 08/19/18 14:07 14:30 15:00 15:50 Pulse 76 80 Resp 20 18 20 B/P (MAP) 122/60 (80) 136/62 (86) Pulse Ox 97 98 O2 Delivery Room Air Room Air Room Air 08/19/18 08/19/18 08/19/18 08/19/18 19:20 19:41 20:00 23:21 Temp 97.5 98.1 97.5 98.1 Pulse 71 72 Resp 18 16 B/P (MAP) 112/60 (77) 129/68 (88) Pulse Ox 93 91 97 O2 Delivery Room Air Room Air Room Air Room Air 08/20/18 08/20/18 08/20/18 08/20/18 03:12 07:00 08:00 11:00 Temp 98.6 98.1 98.2 98.6 98.1 98.2 Pulse 71 88 79 Resp 18 20 20 B/P (MAP) 120/62 (81) 156/85 (108) 137/79 (98) Pulse Ox 83 90 91 O2 Delivery Room Air Room Air Room Air Room Air Intake and Output 08/19/18 08/19/18 08/20/18 15:00 23:00 07:00 Intake Total 50 ml Output Total 0 ml 0 ml Balance 50 ml 0 ml 0 ml LUIGI ZAPATA MD Aug 20, 2018 12:15
--- NOTE | 2018-08-20 12:53 | PDOC4 ---
PROCEDURE Procedure Procedure: fine needle aspiration of right neck mass. aspiration of right neck mass Pre-operative diagnosis: right neck mass Post-operative diagnosis: Same As Above Performed by: Dr. Ivana Figueredo Findings: Oil-colored fluid aspirated from right neck mass, no evidence of infection Description: Verbal consent obtained. Area cleansed with alcohol. I anesthetized area with topical lidoderm followed by subcutaneous injection of 1 % lidocaine with 1:100,000 epinephrine. A 25 gauge needle was used to obtain fine needle aspiration specimen. The specimen was smeared and dried on slides ( 1 air-dry and 1 fixed in alcohol). This was repeated 3 times. I then used 18 gauge angiocath and drained 7ml of motor-oil discolored clear fluid from cyst. This fluid was sent for culture. Patient tolerated procedure well and without discomfort. Disposition: Stable. Patient may be discharged home with follow up with myself next week. Patient should call my clinic at [phone] to schedule follow up appointment. IVANA FIGUEREDO MD Aug 20, 2018 12:53
[2018-08-20 15:00] VITALS: BP 146/76
--- NOTE | 2018-08-20 15:58 | PDOC3 ---
Discharge Summary [facility] Date of Admission: Aug 19, 2018 Discharge Date: Aug 20, 2018 Admitting Diagnosis rt facial/parotid swelling , likely 2/2 parotid cyst, US showed complex fluid collection. no infection HTN COPD stable depression hypothyroidism tobaccoism Final Diagnosis CONSULTS dr. Figueredo ENT Brief Hospital Course Patient is a 82 year old female came for rt face swelling. pt said she started to have rt face swelling end of Jun, it was soft, movable, painful, 6/10 getting bigger. Then she went to , stayed for 4 nights, got drained and said it was not infection or malignancy and they told her it may go away. as per ERP, she was diagnosed at with a parotid gland stone. She saw PCP 3 weeks ago , nothing was done. Pt not wanna go back to . She then feels the nodule gets bigger, hard, not movable, no pain. came to ER. Denies fever, chills, cough, sob, N/V , abd pain. no hearing loss. no skin lesions or discharge. smokes cigarettes sometimes, lost 1-[address] Figueredo, did bx today , oily liquid aspirated, no sign of infection. i talked to nurse, ENT said can dc today and fu with her next week. no abx for given no fever, no wbc and no sign of infection when drained by ENT. It may recur. dc time 35min. Disposition home CONDITION AT DISCHARGE: Improved Scheduled Cetirizine Hcl (Cetirizine Hcl), 1 TAB PO DAILY, (Reported) Gabapentin (Gabapentin), 1 CAP PO TID, (Reported) Levothyroxine Sodium (Levothyroxine Sodium), 1 TAB PO DAILY, (Reported) Omeprazole (Omeprazole), 1 CAP PO DAILY, (Reported) Potassium Chloride (Potassium Chloride), 1 TAB PO BID, (Reported) Sertraline Hcl (Sertraline Hcl), 50 MG PO HS, (Reported) Scheduled PRN Diazepam (Valium), 1 TAB PO BID PRN for ANXIETY, (Reported) Discontinued Medications Doxycycline Hyclate (Doxycycline Hyclate), 1 TAB PO BID, (Reported) Prednisone (Prednisone), 60 MG PO 1X, (Reported) [amlodipine 10-160mg], 1 DAILY08, (Reported) LUIGI ZAPATA MD Aug 20, 2018 15:58
--- NOTE | 2018-08-25 15:07 | PATHOLOGY ---
Note [facility] Accession Number: [id number] TESTS RESULT FLAG UNITS REF RANGE LAB Clinician Provided Cytology Information No. of containers..01 Other (Miscellaneous) Source: RT PAROTID MASS DIAGNOSIS: RT PAROTID MASS INCONCLUSIVE. COMMENT; MOSTLY CYSTIC FLUID WITH LYMPHOCYTES. FEW BENIGN APPEARING EPITHELIAL CELLS ARE SEEN. THE DIFFERENTIAL INCLUDES A CYSTIC NEOPLASM LIKE WARTHINS OR OTHER CYSTIC NEOPLASMS. SUGGEST CLINICAL CORRELATION. THIS CASE IS ALSO REVIEWED BY DR. STUART MELENDREZ WHO AGREES WITH THE ABOVE DIAGNOSIS. Signed out by: Juancho Kee MD, Pathologist NPI- [id number] Performed by: Natalie Zamora, Survey Project Manager ([facility]) Gross description: 01 25ML, BROWN, CLOUDY /LCS FLAG LEGEND: L-Low Normal,H-High Normal,LL-Alert Low,HH-Alert High <-Panic Low,>-Panic High,A-Abnormal,AA-Critical Abnormal Performed at: [facility] [address] [place] [address] Alton Canales MD, 02 [facility] [address] [place] [address] Catrachito Diallo MD, Specimen Comment: A courtesy copy of this report has been sent to Specimen Comment: [phone]. Specimen Comment: Report sent to Performed at: 01 [facility] [place] [address], [place], [place] [id number] MD Alton Canales MD Phone: [phone]
== END 2018-08-20 17:34 | disposition home or self-care (01) | DRG 156 ==
LOC: ER 11:18 → 4 NORTH 13:30
PROVIDERS: ADMIT Internal Medicine; ATTEND Internal Medicine
PROC: 0JB43ZX Excision of Right Neck Subcutaneous Tissue and Fascia, Percutaneous Approach, Diagnostic (ICD-10-PCS; principal; 2018-08-20)
DX: K11.6 Mucocele of salivary gland (principal); I10 Essential (primary) hypertension; F32.9 Major depressive disorder, single episode, unspecified; F41.9 Anxiety disorder, unspecified; E11.9 Type 2 diabetes mellitus without complications; E89.0 Postprocedural hypothyroidism; Z90.710 Acquired absence of both cervix and uterus; Z82.49 Family history of ischemic heart disease and other diseases of the circulatory system; F17.210 Nicotine dependence, cigarettes, uncomplicated; J44.9 Chronic obstructive pulmonary disease, unspecified
CPT/HCPCS: 36415; 70491; 76536; 80048; 85025; 87070; 88173; 88305; 96365; 96375; J2405; J3010; J3490; J7030; Q9967; 99285-25

== ENCOUNTER 2018-11-09 07:36 | Emergency (ER) | payer MEDICARE, OTHER ==
[~2018-11-09] VITALS: Ht 152.4 cm; Wt 59.0 kg
[~2018-11-09 07:36] MED LIST changes: -GABA-586 PO; +GABA300C18 PO
[2018-11-09] MEDS ORDERED: methylPREDNISolone SOD SUCC PF 125 MG/2 ML VIAL. IV ONE (07:45)
[2018-11-09] MEDS ORDERED: IPRATRPIUM/ALBUTEROL 0.5/2.5MG 3 ML NEBU. NEB ONE (07:45)
[2018-11-09] MEDS ORDERED: IV NORMAL SALINE 1000ML BAG 1,000 ML IV SCH (07:45)
--- NOTE | 2018-11-09 07:57 | PHYS DOC ---
Past Medical History Past Medical History: Anxiety, COPD, Depression, Hypertension Past Surgical History: Hysterectomy, Other Additional Past Surgical Histo: Thyroidectomy 1992 Alcohol Use: None Drug Use: None Adult General Chief Complaint Chief Complaint: SHORTNESS OF BREATH [facility] HPI Patient is an 83-year-old female who presents with complaint of 3-4 day history of worsening shortness of breath. Patient indicates that she has a history of COPD and recently quit smoking a few months ago. Patient states that she has had a cough that is been productive of thick clear sputum. She denies any chest pain. She does indicate that the shortness of breath is worsened with exertion. She denies any fever but states that she has had a few spells of sweating at home. She also complains of pain in both of her upper arms and is not sure of the cause of that pain. Patient states that nothing has been improving her shortness of breath. Review of Systems Review of Systems Constitutional: Denies fever or chills [] Respiratory: Complains of cough and shortness of breath [] Cardiovascular: No additional information not addressed in HPI [] GI: Denies abdominal pain, nausea, vomiting or diarrhea [] Musculoskeletal: Complains of bilateral upper arm pain [] Integument: Denies rash or skin lesions [] All other systems were reviewed and found to be within normal limits, except as documented in this note. Current Medications Current Medications Current Medications Medications (Trade) Dose Ordered Sig/Liyah Start Time Stop Time Status Last Admin Dose Admin Albuterol/ Ipratropium (Duoneb) 3 ml 1X ONCE 11/09/18 07:45 11/09/18 07:50 DC 11/09/18 08:02 3 ML Lorazepam (Ativan) 0.5 mg 1X ONCE 11/09/18 10:45 11/09/18 10:46 DC 11/09/18 10:47 0.5 MG Methylprednisolone Sodium Succinate (SOLU-Medrol 125MG VIAL) 125 mg 1X ONCE 11/09/18 07:45 11/09/18 07:50 DC 11/09/18 08:10 125 MG Sodium Chloride 1,000 ml @ 1,000 mls/hr Q1H 11/09/18 07:45 11/09/18 08:44 DC 11/09/18 08:10 1,000 MLS/HR Allergies Allergies Allergies Coded Allergies Type Severity Reaction Last Updated Verified naproxen Allergy Unknown 11/09/18 Yes Physical Exam Physical Exam Constitutional: Well developed, well nourished, no acute distress, non-toxic appearance. [] HENT: Normocephalic, atraumatic, bilateral external ears normal, oropharynx moist, no oral exudates, nose normal. [] Eyes: PERRLA, EOMI, conjunctiva normal, no discharge. [] Neck: Normal range of motion, no tenderness, supple, no stridor. [] Cardiovascular: Regular rate and rhythm [] Lungs & Thorax: Breath sounds are slightly diminished bilaterally with fine rhonchi in the lung bases to auscultation [] Abdomen: Bowel sounds normal, soft, no tenderness. [] Skin: Warm, dry, no erythema, no rash. [] Extremities: No tenderness, no cyanosis, no clubbing, ROM intact, no edema. [] Neurologic: Alert and oriented X 3, no focal deficits noted. [] Current Patient Data Vital Signs Vital Signs Date Time Temp Pulse Resp B/P (MAP) Pulse Ox O2 Delivery O2 Flow Rate FiO2 11/09/18 10:00 66 20 179/84 (115) 98 Room Air 11/09/18 07:49 97.9 97.9 Lab Values Laboratory Tests Test 11/09/18 08:05 11/09/18 08:40 White Blood Count 4.8 x10^3/uL (4.0-11.0) Red Blood Count 4.19 x10^6/uL (3.50-5.40) Hemoglobin 11.9 g/dL (12.0-15.5) L Hematocrit 35.5 % (36.0-47.0) L Mean Corpuscular Volume 85 fL (79-100) Mean Corpuscular Hemoglobin 29 pg (25-35) Mean Corpuscular Hemoglobin Concent 34 g/dL (31-37) Red Cell Distribution Width 15.7 % (11.5-14.5) H Platelet Count 323 x10^3/uL (140-400) Neutrophils (%) (Auto) 52 % (31-73) Lymphocytes (%) (Auto) 32 % (24-48) Monocytes (%) (Auto) 11 % (0-9) H Eosinophils (%) (Auto) 4 % (0-3) H Basophils (%) (Auto) 2 % (0-3) Neutrophils # (Auto) 2.5 x10^3uL (1.8-7.7) Lymphocytes # (Auto) 1.5 x10^3/uL (1.0-4.8) Monocytes # (Auto) 0.5 x10^3/uL (0.0-1.1) Eosinophils # (Auto) 0.2 x10^3/uL (0.0-0.7) Basophils # (Auto) 0.1 x10^3/uL (0.0-0.2) Sodium Level 136 mmol/L (136-145) Potassium Level 4.2 mmol/L (3.5-5.1) Chloride Level 101 mmol/L (98-107) Carbon Dioxide Level 26 mmol/L (21-32) Anion Gap 9 (6-14) Blood Urea Nitrogen 9 mg/dL (7-20) Creatinine 1.1 mg/dL (0.6-1.0) H Estimated GFR (Cockcroft-Gault) 57.3 BUN/Creatinine Ratio 8 (6-20) Glucose Level 107 mg/dL (70-99) H Calcium Level 8.7 mg/dL (8.5-10.1) Total Bilirubin 0.3 mg/dL (0.2-1.0) Aspartate Amino Transferase (AST) 20 U/L (15-37) Alanine Aminotransferase (ALT) 23 U/L (14-59) Alkaline Phosphatase 102 U/L (46-116) Creatine Kinase 147 U/L (26-192) Troponin I Quantitative < 0.017 ng/mL (0.000-0.055) HF-Nqz-K-Type Natriuretic Peptide 558 pg/mL (0-449) H Total Protein 7.3 g/dL (6.4-8.2) Albumin 3.6 g/dL (3.4-5.0) Albumin/Globulin Ratio 1.0 (1.0-1.7) Laboratory Tests 11/09/18 08:05 Laboratory Tests 11/09/18 08:40 EKG EKG [] Interpretation Time: EKG demonstrates sinus bradycardia with a rate of 50. Radiology/Procedures Radiology/Procedures [] Impressions: PORTABLE CHEST 1V Clinical indications: Shortness of air. BILATERAL EXTREMITY PAIN X3 DAYS. HX OF COPD COMPARISON: November 30, 2015. Findings: Chronic bilateral interstitial lung disease is seen. No new lung infiltrate or pleural effusion or pneumothorax is seen. Hyperinflation is seen consistent with COPD. The heart size, pulmonary vasculature, mediastinum and both reece are stable. Impression: No acute radiographic abnormality is seen. Electronically signed by: Saeed Palacio MD (11/09/2018 8:31 AM) [facility] Course & Med Decision Making Course & Med Decision Making Pertinent Labs and Imaging studies reviewed. (See chart for details) [] Dragon Disclaimer Dragon Disclaimer This electronic medical record was generated, in whole or in part, using a voice recognition dictation system. Departure Departure Impression: Primary Impression: COPD (chronic obstructive pulmonary disease) Additional Impression: Anxiety Disposition: 01 HOME, SELF-CARE Condition: STABLE Referrals: ARACELI BACA MD (PCP) Patient Instructions: Anxiety and Panic Attacks, Chronic Obstructive Pulmonary Disease Scripts Clonazepam (CLONAZEPAM) 0.5 Mg Tablet 1 TAB PO BID PRN for ANXIETY, #14 TAB 1 Refill Prov: BILL MCELROY Jr. DO 11/09/18 Problem Qualifiers Primary Impression: COPD (chronic obstructive pulmonary disease) COPD type: unspecified COPD Qualified Codes: J44.9 - Chronic obstructive pulmonary disease, unspecified BILL MCELROY Jr. DO Nov 09, 2018 07:57
[2018-11-09 08:21] LABS: BASO # 0.1 x10^3/uL (0.0-0.2); BASO % 2 % (0-3); EOS # 0.2 x10^3/uL (0.0-0.7); EOS % 4 % (0-3); HEMATOCRIT 35.5 % (36.0-47.0); HEMOGLOBIN 11.9 g/dL (12.0-15.5); LYMPH # 1.5 x10^3/uL (1.0-4.8); LYMPH % 32 % (24-48); MEAN CORPUSCULAR HEMOGLOBIN 29 pg (25-35); MEAN CORPUSCULAR HGB CONC 34 g/dL (31-37); MEAN CORPUSCULAR VOLUME 85 fL (79-100); MONO # 0.5 x10^3/uL (0.0-1.1); MONO % 11 % (0-9); NEUT # 2.5 x10^3uL (1.8-7.7); NEUT % 52 % (31-73); PLATELET COUNT 323 x10^3/uL (140-400); RED BLOOD COUNT 4.19 x10^6/uL (3.50-5.40); RED CELL DISTRIBUTION WIDTH 15.7 % (11.5-14.5); WHITE BLOOD COUNT 4.8 x10^3/uL (4.0-11.0)
--- NOTE | 2018-11-09 08:35 | RAD ---
PORTABLE CHEST 1V Clinical indications: Shortness of air. BILATERAL EXTREMITY PAIN X3 DAYS. HX OF COPD COMPARISON: November 30, 2015. Findings: Chronic bilateral interstitial lung disease is seen. No new lung infiltrate or pleural effusion or pneumothorax is seen. Hyperinflation is seen consistent with COPD. The heart size, pulmonary vasculature, mediastinum and both reece are stable. Impression: No acute radiographic abnormality is seen. Electronically signed by: Saeed Palacio MD (11/09/2018 8:31 AM) [facility]
[2018-11-09 09:04] LABS: CALCIUM 8.7 mg/dL (8.5-10.1); CREATININE 1.1 mg/dL (0.6-1.0); GFR 57.3; POTASSIUM 4.2 mmol/L (3.5-5.1)
[2018-11-09 09:11] LABS: ALBUMIN 3.6 g/dL (3.4-5.0); TOTAL BILIRUBIN 0.3 mg/dL (0.2-1.0); TOTAL PROTEIN 7.3 g/dL (6.4-8.2)
--- NOTE | 2018-11-09 10:11 | EKG ---
[facility] [address] [place] [address] Test Date: 2018-11-09 Test Time: 07:48:25 Pat Name: SHANTA MONDRAGON Department: Room: Gender: F [employer] Supervisor: ARACELI : 1935 Requested By: BILL MCELROY Order Number: [id number] Reading MD: Measurements Intervals [place] Rate: 50 P: 90 DC: 146 QRS: 56 QRSD: 78 T: 38 QT: 490 QTc: 450 Interpretive Statements SINUS RHYTHM NORMAL ECG RI6.01 No previous ECG available for comparison
[2018-11-09] MEDS ORDERED: CLON0.5T11 PO (11:36)
[2018-11-09 12:00] VITALS: BP 119/59
== END 2018-11-09 12:30 | disposition home or self-care (01) ==
LOC: ER 07:36
DX: J44.9 Chronic obstructive pulmonary disease, unspecified (principal); F41.9 Anxiety disorder, unspecified; F32.9 Major depressive disorder, single episode, unspecified; I10 Essential (primary) hypertension; Z88.5 Allergy status to narcotic agent; Z87.891 Personal history of nicotine dependence
CPT/HCPCS: 36415; 71045; 80053; 82550; 83880; 84484; 85025; 93005; 94640; 96374; 96375; 99284; J2060; J2930; J7030; J7620

== ENCOUNTER 2019-03-29 15:42 | Emergency (ER) | payer OTHER ==
[~2019-03-29] VITALS: Ht 152.4 cm; Wt 58.5 kg
[~2019-03-29 15:42] MED LIST changes: +CLON0.5T11 PO
[2019-03-29 16:11] LABS: BASO % 1 % (0-3); EOS # 0.1 x10^3/uL (0.0-0.7); EOS % 1 % (0-3); HEMATOCRIT 32.7 % (36.0-47.0); HEMOGLOBIN 11.1 g/dL (12.0-15.5); LYMPH # 1.2 x10^3/uL (1.0-4.8); LYMPH % 16 % (24-48); MEAN CORPUSCULAR HEMOGLOBIN 28 pg (25-35); MEAN CORPUSCULAR HGB CONC 34 g/dL (31-37); MEAN CORPUSCULAR VOLUME 81 fL (79-100); MONO # 0.7 x10^3/uL (0.0-1.1); MONO % 9 % (0-9); NEUT # 5.4 x10^3uL (1.8-7.7); NEUT % 73 % (31-73); PLATELET COUNT 339 x10^3/uL (140-400); RED BLOOD COUNT 4.06 x10^6/uL (3.50-5.40); RED CELL DISTRIBUTION WIDTH 16.7 % (11.5-14.5); WHITE BLOOD COUNT 7.4 x10^3/uL (4.0-11.0)
--- NOTE | 2019-03-29 16:21 | PHYS DOC ---
Past Medical History Past Medical History: COPD, High Cholesterol, Hypertension Past Surgical History: Hysterectomy, Other Additional Past Surgical Histo: Thyroidectomy 1992 Alcohol Use: None Drug Use: None Adult General Chief Complaint Chief Complaint: SHORTNESS OF BREATH HPI HPI 83-year-old female presents to ER via EMS from her residence for complaints of left side pain just below her breast. Patient states she is having pain similar for the past week however this morning pain increased and she felt sweaty. Patient states she has had a cough since last week and was seen by her doctor on Saturday started on antibiotics for concerns for bronchitis uncertain as to what antibiotic. Patient states history of COPD and has been using her inhalers at home. Patient states she is an occasional smoker. Patient denies fever, nausea or vomiting, pain radiating into extremities/back. She reports pain does increase with coughing and palpation of left side. Patient denies any recent falls or injury. Review of Systems Review of Systems Constitutional: Denies fever or chills [] Eyes: Denies change in visual acuity, redness, or eye pain [] HENT: Denies nasal congestion or sore throat [] Respiratory: Reports cough- denies SOA Cardiovascular: Reports lt side pain just under breast- denies radiation GI: Denies abdominal pain, nausea, vomiting, bloody stools or diarrhea [] : Denies dysuria or hematuria [] Musculoskeletal: Denies back pain or joint pain [] Integument: Denies rash or skin lesions [] Neurologic: Denies headache, focal weakness or sensory changes [] Endocrine: Denies polyuria or polydipsia [] All other systems were reviewed and found to be within normal limits, except as documented in this note. Current Medications Current Medications Current Medications Medications (Trade) Dose Ordered Sig/Liyah Start Time Stop Time Status Last Admin Dose Admin Albuterol/ Ipratropium (Duoneb) 3 ml 1X ONCE 03/29/19 16:30 03/29/19 16:31 DC 03/29/19 16:27 3 ML Lidocaine (Lidoderm) 1 patch 1X ONCE 03/29/19 17:15 03/29/19 17:16 DC 03/29/19 17:31 1 PATCH Methylprednisolone Sodium Succinate (SOLU-Medrol 125MG VIAL) 125 mg 1X ONCE 03/29/19 16:30 03/29/19 16:31 DC 03/29/19 16:26 125 MG Allergies Allergies Allergies Coded Allergies Type Severity Reaction Last Updated Verified naproxen Allergy Unknown 11/09/18 Yes Physical Exam Physical Exam Constitutional: Well developed, well nourished, no acute distress, non-toxic appearance. Speaking in full sentences HENT: Normocephalic, atraumatic, oropharynx moist, no oral exudates, nose normal. [] Eyes: Pupils equal, conjunctiva normal, no discharge. [] Neck: Normal range of motion, no tenderness, supple, no stridor. [] Cardiovascular:Heart rate regular rhythm, no murmur [] Lungs & Thorax: Coarse upper lung harrison- decreased air movement through all lung harrison and less air movement in bases. Resp. equal/nonlabored. Tender on palpation just below the left breast without crepitus or palpable deformity. Abdomen: Bowel sounds normal, soft- no rigidity, no tenderness, no masses, no pulsatile masses. [] Skin: Warm, dry, no erythema, no rash. [] Back: No tenderness, no CVA tenderness. [] Extremities: No tenderness, no cyanosis, no clubbing, ROM intact, no edema. [] Neurologic: Alert and oriented X 3, normal motor function, normal sensory func tion, no focal deficits noted. [] Psychologic: Affect normal, judgement normal, mood normal. [] Current Patient Data Vital Signs Vital Signs Date Time Temp Pulse Resp B/P (MAP) Pulse Ox O2 Delivery O2 Flow Rate FiO2 03/29/19 17:30 20 171/77 (108) 97 Room Air 03/29/19 16:28 77 03/29/19 15:44 98.2 98.2 Lab Values Laboratory Tests Test 03/29/19 15:50 White Blood Count 7.4 x10^3/uL (4.0-11.0) Red Blood Count 4.06 x10^6/uL (3.50-5.40) Hemoglobin 11.1 g/dL (12.0-15.5) L Hematocrit 32.7 % (36.0-47.0) L Mean Corpuscular Volume 81 fL (79-100) Mean Corpuscular Hemoglobin 28 pg (25-35) Mean Corpuscular Hemoglobin Concent 34 g/dL (31-37) Red Cell Distribution Width 16.7 % (11.5-14.5) H Platelet Count 339 x10^3/uL (140-400) Neutrophils (%) (Auto) 73 % (31-73) Lymphocytes (%) (Auto) 16 % (24-48) L Monocytes (%) (Auto) 9 % (0-9) Eosinophils (%) (Auto) 1 % (0-3) Basophils (%) (Auto) 1 % (0-3) Neutrophils # (Auto) 5.4 x10^3uL (1.8-7.7) Lymphocytes # (Auto) 1.2 x10^3/uL (1.0-4.8) Monocytes # (Auto) 0.7 x10^3/uL (0.0-1.1) Eosinophils # (Auto) 0.1 x10^3/uL (0.0-0.7) Basophils # (Auto) 0.0 x10^3/uL (0.0-0.2) Sodium Level 136 mmol/L (136-145) Potassium Level 3.6 mmol/L (3.5-5.1) Chloride Level 99 mmol/L (98-107) Carbon Dioxide Level 27 mmol/L (21-32) Anion Gap 10 (6-14) Blood Urea Nitrogen 14 mg/dL (7-20) Creatinine 1.2 mg/dL (0.6-1.0) H Estimated GFR (Cockcroft-Gault) 51.8 BUN/Creatinine Ratio 12 (6-20) Glucose Level 119 mg/dL (70-99) H Lactic Acid Level 1.6 mmol/L (0.4-2.0) Calcium Level 9.3 mg/dL (8.5-10.1) Magnesium Level 1.4 mg/dL (1.8-2.4) L Total Bilirubin 0.3 mg/dL (0.2-1.0) Aspartate Amino Transferase (AST) 18 U/L (15-37) Alanine Aminotransferase (ALT) 24 U/L (14-59) Alkaline Phosphatase 104 U/L (46-116) Troponin I Quantitative < 0.017 ng/mL (0.000-0.055) Total Protein 7.8 g/dL (6.4-8.2) Albumin 3.5 g/dL (3.4-5.0) Albumin/Globulin Ratio 0.8 (1.0-1.7) L Laboratory Tests 03/29/19 15:50 Laboratory Tests 03/29/19 15:50 EKG EKG EKG obtained 03/29/19 at [address] Tierney Sinus rhythm Rate 74 No STEMI Radiology/Procedures Radiology/Procedures PROCEDURE: CHEST PA & LATERAL PA and lateral chest. HISTORY: Right-sided pain, cough PA and lateral views were taken of the chest. There is arthritis and rotator cuff degeneration in the shoulders. Lungs are free of infiltrates. Heart is normal in size. There is no pleural effusion. IMPRESSION: 1. No acute infiltrates. Electronically signed by: Manolo Claudio MD (03/29/2019 4:39 PM) [facility] DICTATED and SIGNED BY: MANOLO CLAUDIO MD DATE: 03/29/19 163 Course & Med Decision Making Course & Med Decision Making Pertinent Labs and Imaging studies reviewed. (See chart for details) 1700: Patient was evaluated in the ER for c/o lt side upper pain just below breast which increased with cough. Initial exam patient had coarse lung sounds in bilateral upper lung harrison with diminished air movement throughout. Patient was provided with DuoNeb and dose of IV Solu-Medrol and at this time has clear lung sounds with increased air movement throughout all lung harrison. Patient reports her symptoms much improved and at this time she is in no visible distress with equal nonlabored respirations. Pt denies any chest pain. Pt's brother arrived bedside and is present during this conversation. Discussed chest x-ray with no acute findings. EKG no acute ST elevation or STEMI and troponin was negative. Offered admission for further monitoring and care- pt reports with improved symptoms she is comfortable with home discharge. 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 Will have Lidoderm patch applied prior to discharge. Patient is currently on an antibiotic prescribed by her primary care physician last week patient advised to continue that prescription. She also has inhalers for her COPD. Smoking cessation was discussed. Patient to follow-up with her primary care physician this week for reevaluation and further care. Education provided on signs and symptoms to return to ER. Discharge instructions were discussed. Dragon Disclaimer Dragon Disclaimer This electronic medical record was generated, in whole or in part, using a voice recognition dictation system. Departure Departure Impression: Primary Impression: COPD (chronic obstructive pulmonary disease) Disposition: 01 HOME, SELF-CARE Condition: STABLE Referrals: ARACELI BACA MD (PCP) Patient Instructions: Chest Wall Pain, Chronic Obstructive Pulmonary Disease Exacerbation, Smoking Cessation Additional Instructions: Avoid smoking. Use your inhaler as prescribed. Follow-up with your primary doctor in 3-5 days for re-evaluation sooner with any concerns. Continue your antibiotic as prescribed. MARIA LUISA MENDOZA APRN Mar 29, 2019 16:21
[2019-03-29] MEDS ORDERED: IPRATRPIUM/ALBUTEROL 0.5/2.5MG 3 ML NEBU. NEB ONE (16:30)
[2019-03-29] MEDS ORDERED: methylPREDNISolone SOD SUCC PF 125 MG/2 ML VIAL. IV ONE (16:30)
[2019-03-29 16:32] LABS: CALCIUM 9.3 mg/dL (8.5-10.1); CREATININE 1.2 mg/dL (0.6-1.0); GFR 51.8; POTASSIUM 3.6 mmol/L (3.5-5.1)
[2019-03-29 16:37] LABS: ALBUMIN 3.5 g/dL (3.4-5.0); ALBUMIN/GLOBULIN RATIO 0.8 (1.0-1.7); MAGNESIUM 1.4 mg/dL (1.8-2.4); TOTAL BILIRUBIN 0.3 mg/dL (0.2-1.0); TOTAL PROTEIN 7.8 g/dL (6.4-8.2)
--- NOTE | 2019-03-29 16:41 | RAD ---
PA and lateral chest. HISTORY: Right-sided pain, cough PA and lateral views were taken of the chest. There is arthritis and rotator cuff degeneration in the shoulders. Lungs are free of infiltrates. Heart is normal in size. There is no pleural effusion. IMPRESSION: 1. No acute infiltrates. Electronically signed by: Manolo Claudio MD (03/29/2019 4:39 PM) [facility]
[2019-03-29] MEDS ORDERED: LIDOCAINE (700MG/PATCH) PATCH. TD ONE (17:15)
[2019-03-29 17:30] VITALS: BP 171/77
--- NOTE | 2019-03-30 08:20 | EKG ---
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
== END 2019-03-29 17:35 | disposition home or self-care (01) ==
LOC: ER 15:42
DX: J44.9 Chronic obstructive pulmonary disease, unspecified (principal); E78.00 Pure hypercholesterolemia, unspecified; I10 Essential (primary) hypertension; Z88.5 Allergy status to narcotic agent
CPT/HCPCS: 36415; 71046; 80053; 83605; 83735; 84484; 85025; 93005; 94640; 96374; 99285; J2930; J7620

== ENCOUNTER 2019-07-19 22:48 | Inpatient (IN) | payer OTHER ==
[~2019-07-19] VITALS: Ht 152.4 cm; Wt 56.5 kg
[~2019-07-19 22:48] MED LIST changes: +CLON-77 PO; -CLON0.5T11 PO; +OMEP40CA45 PO; -OMEP40CA5 PO
--- NOTE | 2019-07-19 22:59 | PHYS DOC ---
Past Medical History Past Medical History: COPD, High Cholesterol, Hypertension Past Surgical History: Hysterectomy, Other Additional Past Surgical Histo: Thyroidectomy 1992 Smoking: Cigarettes Alcohol Use: None Drug Use: None Adult General Chief Complaint Chief Complaint: CHEST PAIN HPI HPI 83-year-old female presents via EMS with report of chest pain with radiation down left arm and associated shortness of air which started when patient awoke at 0900. Patient reports sensation of pressure pain. Denies trauma. Denies fever or chills. Denies cough. Cardiac risk factors of high blood pressure, high cholesterol, smoking, and family history. EMS reports giving 324 mg of aspirin in route. Review of Systems Review of Systems Constitutional: Denies fever or chills Eyes: Denies redness or eye pain HENT: Denies nasal congestion or sore throat Respiratory: Denies cough; reports shortness of breath Cardiovascular: Reports chest pain; denies palpitations GI: Denies abdominal pain, nausea, or vomiting : Denies dysuria or hematuria Musculoskeletal: Denies back pain or joint pain Integument: Denies rash or skin lesions Neurologic: Denies headache, focal weakness or sensory changes Complete systems were reviewed and found to be within normal limits, except as documented in this note. Current Medications Current Medications Current Medications Medications (Trade) Dose Ordered Sig/Liyah Start Time Stop Time Status Last Admin Dose Admin Fentanyl Citrate (Fentanyl 2ml Vial) 25 mcg PRN Q2HR PRN 07/19/19 23:00 Heparin Sodium (Porcine) (Heparin Sodium) 4,000 unit 1X ONCE 07/19/19 23:00 07/19/19 23:06 DC 07/19/19 23:02 4,000 UNIT Ondansetron HCl (Zofran) 4 mg PRN Q8HRS PRN 07/19/19 23:00 07/20/19 22:59 Allergies Allergies Allergies Coded Allergies Type Severity Reaction Last Updated Verified naproxen Allergy Intermediate 06/10/19 Yes Physical Exam Physical Exam Constitutional: Well developed, well nourished, no acute distress, non-toxic appearance HENT: Normocephalic, atraumatic, oropharynx moist Eyes: Conjunctiva normal, no discharge Neck: Normal range of motion, no tenderness, supple Cardiovascular: Heart rate normal, regular rhythm Lungs & Thorax: Bilateral breath sounds clear to auscultation, no wheezing Abdomen: Soft, no tenderness Skin: Warm, dry, no erythema, no rash Extremities: No tenderness, ROM intact, no edema Neurologic: Alert and oriented X 3, no focal deficits noted Psychologic: Affect normal, judgement normal Current Patient Data Lab Values Laboratory Tests Test 07/19/19 22:54 White Blood Count 11.4 x10^3/uL (4.0-11.0) H Red Blood Count 3.87 x10^6/uL (3.50-5.40) Hemoglobin 8.8 g/dL (12.0-15.5) L Hematocrit 27.2 % (36.0-47.0) L Mean Corpuscular Volume 70 fL (79-100) L Mean Corpuscular Hemoglobin 23 pg (25-35) L Mean Corpuscular Hemoglobin Concent 32 g/dL (31-37) Red Cell Distribution Width 18.7 % (11.5-14.5) H Platelet Count 511 x10^3/uL (140-400) H Neutrophils (%) (Auto) 65 % (31-73) Lymphocytes (%) (Auto) 18 % (24-48) L Monocytes (%) (Auto) 15 % (0-9) H Eosinophils (%) (Auto) 1 % (0-3) Basophils (%) (Auto) 1 % (0-3) Neutrophils # (Auto) 7.4 x10^3/uL (1.8-7.7) Lymphocytes # (Auto) 2.1 x10^3/uL (1.0-4.8) Monocytes # (Auto) 1.7 x10^3/uL (0.0-1.1) H Eosinophils # (Auto) 0.1 x10^3/uL (0.0-0.7) Basophils # (Auto) 0.1 x10^3/uL (0.0-0.2) Platelet Estimate Pending Prothrombin Time 15.5 SEC (11.7-14.0) H Prothrombin Time INR 1.3 (0.8-1.1) H Laboratory Tests 07/19/19 22:54 EKG EKG @2249 NSR at 79bpm, ST elevation II-III,aVF with reciprocal depression: I, aVL, & V2-V4 consistent for STEMI Radiology/Procedures Radiology/Procedures [] Course & Med Decision Making Course & Med Decision Making Pertinent Labs and Imaging studies reviewed. (See chart for details) Patient presents with report of chest pain upon waking this morning at 0900. Patient with significant cardiac risk factors. EKG consistent for STEMI. STEMI activation utilized. ASA provided in route by EMS. IV heparin bolus given. Pain addressed. Discussed with Dr. Malloy (cardiology) who will present directly to prosthetic lab technician. Labs obtained and posted to chart. Anemia at baseline per [employer] review. Initial troponin elevated. CXR stable. Patient requiring admission for further evaluation and treatment. Discussed with Dr. Palma (hospitalist) who is in agreement with admission. Discussed findings and plan with patient, who acknowledges understanding and agreement. Dragon Disclaimer Dragon Disclaimer This electronic medical record was generated, in whole or in part, using a voice recognition dictation system. Departure Departure Impression: Primary Impression: STEMI (ST elevation myocardial infarction) Disposition: ADMITTED INPATIENT Admitting Physician: WALESKA (Louie) Condition: GUARDED Referrals: ARACELI BACA MD (PCP) The HEART Score for CP Pts HEART Score for Chest Pain: HEART Score for Chest Pain Response (Comments) Value History Highly Suspicious [address] Depression 2 Age > 65 2 Risk Factors >3 Risk Factors or Hx CAD 2 Troponin >3 x Normal Limit 2 Total 10 Risk Factors: Risk Factors: DM, Current or recent (<one month) smoker, HTN, HLP, family hi story of CAD, obesity. Risk Scores: Score 0 - 3: 2.5% MACE over next 6 weeks - Discharge Home Score 4 - 6: 20.3% MACE over next 6 weeks - Admit for Clinical Observation Score 7 - 10: 72.7% MACE over next 6 weeks - Early Invasive Strategies Critical Care Time Critical care time was 30 minutes which includes time at bedside, spent in discussion of patient's care with specialists and/or family members, with interpretation of laboratory and/or radiological studies and is exclusive of procedures. Problem Qualifiers Primary Impression: STEMI (ST elevation myocardial infarction) Involved coronary artery: unspecified coronary artery Qualified Codes: I21.3 - ST elevation (STEMI) myocardial infarction of unspecified site ANTONIO MCMULLEN DO Jul 19, 2019 22:59
[2019-07-19] MEDS ORDERED: fentaNYL PF VIAL 100 MCG/2 ML VIAL IV PRN (23:00)
[2019-07-19] MEDS ORDERED: fentaNYL PF VIAL 100 MCG/2 ML VIAL IV ONE (23:00)
[2019-07-19] MEDS ORDERED: ONDANSETRON PF 4 MG/2 ML VIAL. IV PRN (23:00)
[2019-07-19] MEDS ORDERED: HEPARIN for IV BOLUS 10,000 UNIT/10 ML VIAL. IV ONE (23:00)
[2019-07-19 23:05] LABS: BASO # 0.1 x10^3/uL (0.0-0.2); BASO % 1 % (0-3); EOS # 0.1 x10^3/uL (0.0-0.7); EOS % 1 % (0-3); HEMATOCRIT 27.2 % (36.0-47.0); HEMOGLOBIN 8.8 g/dL (12.0-15.5); LYMPH # 2.1 x10^3/uL (1.0-4.8); LYMPH % 18 % (24-48); MEAN CORPUSCULAR HEMOGLOBIN 23 pg (25-35); MEAN CORPUSCULAR HGB CONC 32 g/dL (31-37); MEAN CORPUSCULAR VOLUME 70 fL (79-100); MONO # 1.7 x10^3/uL (0.0-1.1); MONO % 15 % (0-9); NEUT # 7.4 x10^3/uL (1.8-7.7); NEUT % 65 % (31-73); PLATELET COUNT 511 x10^3/uL (140-400); RED BLOOD COUNT 3.87 x10^6/uL (3.50-5.40); RED CELL DISTRIBUTION WIDTH 18.7 % (11.5-14.5); WHITE BLOOD COUNT 11.4 x10^3/uL (4.0-11.0)
[2019-07-19 23:15] LABS: PROTHROMBIN TIME PATIENT 15.5 SEC (11.7-14.0)
[2019-07-19] MEDS ORDERED: LIDOCAINE 1% Multi-Dose 20 ML VIAL. ONE (23:22)
[2019-07-19] MEDS ORDERED: fentaNYL PF VIAL 100 MCG/2 ML VIAL ONE (23:27)
[2019-07-19] MEDS ORDERED: MIDAZOLAM HCL/PF 2 MG/2 ML VIAL. ONE (23:27)
[2019-07-19 23:28] LABS: CALCIUM 8.4 mg/dL (8.5-10.1); CREATININE 0.9 mg/dL (0.6-1.0); GFR 72.2; POTASSIUM 3.1 mmol/L (3.5-5.1)
[2019-07-19 23:34] LABS: ALBUMIN 2.9 g/dL (3.4-5.0); ALBUMIN/GLOBULIN RATIO 0.7 (1.0-1.7); MAGNESIUM 1.4 mg/dL (1.8-2.4); TOTAL BILIRUBIN 0.3 mg/dL (0.2-1.0)
[2019-07-19 23:56] LABS: ANISOCYTOSIS SLIGHT; HYPOCHROMIA MOD; PLT ESTIMATE INCREASED (ADEQUATE)
[2019-07-19] MEDS ORDERED: BIVALIRUDIN 250 MG VIAL. IV ONE (23:56)
[2019-07-19 23:57] LABS: MICROCYTOSIS MOD; SCHISTOCYTES OCC; TARGET CELLS OCC; TEAR DROP CELLS OCC
[2019-07-20] VITALS (21 sets, daily range): BP systolic 92–132; BP diastolic 48–66
[2019-07-20] MEDS ORDERED: HEPARIN for IV BOLUS 10,000 UNIT/10 ML VIAL. ONE
[2019-07-20] MEDS ORDERED: IODIXANOL 320 MG/ML 100 ML VIAL. ONE (00:07)
[2019-07-20] MEDS ORDERED: NITROGLYCERIN 200 MCG/2 ML SYRINGE FOR CATH/VASC LAB. ONE (00:25)
[2019-07-20] MEDS ORDERED: CLOPIDOGREL BISULFATE 75 MG TABLET ONE (00:35)
--- NOTE | 2019-07-20 00:58 | PDOC2 ---
CONSULT Date of Consult Date of Consult DATE: 07/20/19 TIME: 00:50 Reason for Consult Reason for Consult: Chest pain, probable MA Referring Physician Referring Physician: Dr. Palma Identification/Chief Complaint Chief Complaint Chest pain Source Source: Chart review, Patient History of Present Illness Reason for Visit: The patient is an 83 year old female who reports episodes of chest pain today. Her most recent episode was more severe and paramedics were called. She was brought to the ER and her EKG showed inferior ST elevation. She was treated with ASA and heparin. Her pain improved but continued. She denied a history of CAD but does have a history of HTN, HLD and tobacco abuse. She also has a strong family history of CAD. In this setting an emergency cath and possible revasc. was recommended. Risks and benefits were discussed and the patient agreed to proceed. Past Medical History Cardiovascular: HTN, Hyperlipidemia Pulmonary: Bronchitis, COPD GI: No pertinent hx Psych: Anxiety, Depression Musculoskeletal: low back pain Endocrine: Diabetes, Hypothyroidism Past Surgical History Past Surgical History: Hysterectomy, Other Family History Family History: Heart Disease, Hypertension Social History <1 pack per day ALCOHOL: none Drugs: None Current Problem List Problem List Problems Medical Problems: (1) STEMI (ST elevation myocardial infarction) Status: Acute Current Medications Current Medications Current Medications Heparin Sodium (Porcine) (Heparin Sodium) 4,000 unit 1X ONCE IV Last administered on 07/19/19at 23:02; Start 07/19/19 at 23:00; Stop 07/19/19 at 23:06; Status DC Fentanyl Citrate (Fentanyl 2ml Vial) 25 mcg 1X ONCE IV Last administered on 07/19/19at 23:01; Start 07/19/19 at 23:00; Stop 07/19/19 at 23:06; Status DC Ondansetron HCl (Zofran) 4 mg PRN Q8HRS PRN IV NAUSEA/VOMITING; Start 07/19/19 at 23:00; Stop 07/20/19 at 22:59 Fentanyl Citrate (Fentanyl 2ml Vial) 25 mcg PRN Q2HR PRN IV PAIN; Start 07/19/19 at 23:00 Lidocaine HCl (Lidocaine 1% 20ml Vial) 20 ml STK-MED ONCE .ROUTE ; Start 07/19/19 at 23:22; Stop 07/19/19 at 23:22; Status DC Heparin Sodium/ Sodium Chloride 1,000 ml @ As Directed STK-MED ONCE .ROUTE ; Start 07/19/19 at 23:22; Stop 07/19/19 at 23:22; Status DC Fentanyl Citrate (Fentanyl 2ml Vial) 100 mcg STK-MED ONCE .ROUTE ; Start 07/19/19 at 23:27; Stop 07/19/19 at 23:27; Status DC Midazolam HCl (Versed) 2 mg STK-MED ONCE .ROUTE ; Start 07/19/19 at 23:27; Stop 07/19/19 at 23:27; Status DC Bivalirudin (Angiomax) 250 mg STK-MED ONCE IV ; Start 07/19/19 at 23:56; Stop 1 at 23:56; Status DC Heparin Sodium (Porcine) (Heparin Sodium) 10,000 unit STK-MED ONCE .ROUTE ; Start 07/20/19 at 00:00; Stop 07/20/19 at 00:01; Status DC Iodixanol (Visipaque 320) 100 ml STK-MED ONCE .ROUTE ; Start 07/20/19 at 00:07; Stop 07/20/19 at 00:07; Status DC Nitroglycerin (Nitroglycerin) 200 mcg STK-MED ONCE .ROUTE ; Start 07/20/19 at 00:25; Stop 07/20/19 at 00:25; Status DC Clopidogrel Bisulfate (Plavix) 75 mg STK-MED ONCE .ROUTE ; Start 07/20/19 at 00:35; Stop 07/20/19 at 00:35; Status DC Active Scripts Active Clonazepam (Clonazepam) 0.5 Mg Tablet 1 Tab PO BID PRN Reported Sertraline Hcl 50 Mg Tablet 50 Mg PO HS Levothyroxine Sodium 75 Mcg Tablet 1 Tab PO DAILY Cetirizine Hcl 10 Mg Tablet 1 Tab PO DAILY Gabapentin (Gabapentin) 300 Mg Capsule 1 Cap PO TID Allergies Allergies: Coded Allergies: naproxen (Verified Allergy, Intermediate, 06/10/19) ROS Respiratory: YES: Shortness of breath, SOB with excertion Cardiovascular: yes Chest Pain Physical Exam General: mild distress HEENT: Atraumatic Lungs: Clear to auscultation Heart: Regular rate Abdomen: Normal bowel sounds Vitals VITALS Vital Signs Date Time Temp Pulse Resp B/P (MAP) Pulse Ox O2 Delivery O2 Flow Rate FiO2 07/19/19 23:31 69 13 128/64 (85) 98 Room Air 07/19/19 22:50 97.7 97.7 Labs Labs Laboratory Tests Test 07/19/19 22:51 07/19/19 22:54 07/19/19 23:13 Activated Partial Thromboplast Time 31 SEC (24-38) White Blood Count 11.4 x10^3/uL (4.0-11.0) Red Blood Count 3.87 x10^6/uL (3.50-5.40) Hemoglobin 8.8 g/dL (12.0-15.5) Hematocrit 27.2 % (36.0-47.0) Mean Corpuscular Volume 70 fL (79-100) Mean Corpuscular Hemoglobin 23 pg (25-35) Mean Corpuscular Hemoglobin Concent 32 g/dL (31-37) Red Cell Distribution Width 18.7 % (11.5-14.5) Platelet Count 511 x10^3/uL (140-400) Neutrophils (%) (Auto) 65 % (31-73) Lymphocytes (%) (Auto) 18 % (24-48) Monocytes (%) (Auto) 15 % (0-9) Eosinophils (%) (Auto) 1 % (0-3) Basophils (%) (Auto) 1 % (0-3) Neutrophils # (Auto) 7.4 x10^3/uL (1.8-7.7) Lymphocytes # (Auto) 2.1 x10^3/uL (1.0-4.8) Monocytes # (Auto) 1.7 x10^3/uL (0.0-1.1) Eosinophils # (Auto) 0.1 x10^3/uL (0.0-0.7) Basophils # (Auto) 0.1 x10^3/uL (0.0-0.2) Platelet Estimate Increased (ADEQUATE) Hypochromasia Mod Anisocytosis Slight Microcytosis Mod Target Cells Occ Tear Drop Cells Occ Schistocytes Occ Prothrombin Time 15.5 SEC (11.7-14.0) Prothromb Time International Ratio 1.3 (0.8-1.1) Sodium Level 138 mmol/L (136-145) Potassium Level 3.1 mmol/L (3.5-5.1) Chloride Level 99 mmol/L (98-107) Carbon Dioxide Level 30 mmol/L (21-32) Anion Gap 9 (6-14) Blood Urea Nitrogen 10 mg/dL (7-20) Creatinine 0.9 mg/dL (0.6-1.0) Estimated GFR (Cockcroft-Gault) 72.2 BUN/Creatinine Ratio 11 (6-20) Glucose Level 144 mg/dL (70-99) Calcium Level 8.4 mg/dL (8.5-10.1) Magnesium Level 1.4 mg/dL (1.8-2.4) Total Bilirubin 0.3 mg/dL (0.2-1.0) Aspartate Amino Transf (AST/SGOT) 17 U/L (15-37) Alanine Aminotransferase (ALT/SGPT) 14 U/L (14-59) Alkaline Phosphatase 92 U/L (46-116) Creatine Kinase 95 U/L (26-192) Creatine Kinase MB (Mass) 8.6 ng/mL (0.0-3.6) Creatine Kinase MB Relative Index 9.1 % (0-4) Troponin I Quantitative 1.249 ng/mL (0.000-0.055) PZ-Nfu-X-Type Natriuretic Peptide 593 pg/mL (0-449) Total Protein 7.0 g/dL (6.4-8.2) Albumin 2.9 g/dL (3.4-5.0) Albumin/Globulin Ratio 0.7 (1.0-1.7) Lipase 163 U/L (73-393) Laboratory Tests Test 07/19/19 22:51 07/19/19 22:54 07/19/19 23:13 Activated Partial Thromboplast Time 31 SEC (24-38) White Blood Count 11.4 x10^3/uL (4.0-11.0) Red Blood Count 3.87 x10^6/uL (3.50-5.40) Hemoglobin 8.8 g/dL (12.0-15.5) Hematocrit 27.2 % (36.0-47.0) Mean Corpuscular Volume 70 fL (79-100) Mean Corpuscular Hemoglobin 23 pg (25-35) Mean Corpuscular Hemoglobin Concent 32 g/dL (31-37) Red Cell Distribution Width 18.7 % (11.5-14.5) Platelet Count 511 x10^3/uL (140-400) Neutrophils (%) (Auto) 65 % (31-73) Lymphocytes (%) (Auto) 18 % (24-48) Monocytes (%) (Auto) 15 % (0-9) Eosinophils (%) (Auto) 1 % (0-3) Basophils (%) (Auto) 1 % (0-3) Neutrophils # (Auto) 7.4 x10^3/uL (1.8-7.7) Lymphocytes # (Auto) 2.1 x10^3/uL (1.0-4.8) Monocytes # (Auto) 1.7 x10^3/uL (0.0-1.1) Eosinophils # (Auto) 0.1 x10^3/uL (0.0-0.7) Basophils # (Auto) 0.1 x10^3/uL (0.0-0.2) Platelet Estimate Increased (ADEQUATE) Hypochromasia Mod Anisocytosis Slight Microcytosis Mod Target Cells Occ Tear Drop Cells Occ Schistocytes Occ Prothrombin Time 15.5 SEC (11.7-14.0) Prothromb Time International Ratio 1.3 (0.8-1.1) Sodium Level 138 mmol/L (136-145) Potassium Level 3.1 mmol/L (3.5-5.1) Chloride Level 99 mmol/L (98-107) Carbon Dioxide Level 30 mmol/L (21-32) Anion Gap 9 (6-14) Blood Urea Nitrogen 10 mg/dL (7-20) Creatinine 0.9 mg/dL (0.6-1.0) Estimated GFR (Cockcroft-Gault) 72.2 BUN/Creatinine Ratio 11 (6-20) Glucose Level 144 mg/dL (70-99) Calcium Level 8.4 mg/dL (8.5-10.1) Magnesium Level 1.4 mg/dL (1.8-2.4) Total Bilirubin 0.3 mg/dL (0.2-1.0) Aspartate Amino Transf (AST/SGOT) 17 U/L (15-37) Alanine Aminotransferase (ALT/SGPT) 14 U/L (14-59) Alkaline Phosphatase 92 U/L (46-116) Creatine Kinase 95 U/L (26-192) Creatine Kinase MB (Mass) 8.6 ng/mL (0.0-3.6) Creatine Kinase MB Relative Index 9.1 % (0-4) Troponin I Quantitative 1.249 ng/mL (0.000-0.055) YH-Kro-D-Type Natriuretic Peptide 593 pg/mL (0-449) Total Protein 7.0 g/dL (6.4-8.2) Albumin 2.9 g/dL (3.4-5.0) Albumin/Globulin Ratio 0.7 (1.0-1.7) Lipase 163 U/L (73-393) Assessment/Plan Assessment/Plan 1. Chest pain and an abnormal EKG. Treated with ASA and heparin. Continued pain and multiple risk factors. Emergency heart cath as above. 2. HTN. Monitor and resume home medication as needed. 3. HLD. Check lab. 4. DM. As per the primary service. Thank you for allowing us to participate inn the care of your patient. FLORI WILLAMS MD Jul 20, 2019 00:58
[2019-07-20] MEDS ORDERED: LIDOCAINE 1% Multi-Dose 20 ML VIAL. INJ ONE (01:00)
[2019-07-20] MEDS ORDERED: ATROPINE 0.5 MG/5 ML DISP.SYRINGE. IV PRN (01:00)
[2019-07-20] MEDS ORDERED: IODIXANOL 320 MG/ML 100 ML VIAL. IART ONE (01:00)
[2019-07-20] MEDS ORDERED: IV NORMAL SALINE 1000ML BAG 1,000 ML IV SCH (01:00)
[2019-07-20] MEDS ORDERED: AMIODARONE 150 MG in IV DEXTROSE 5% 100ML 100 ML IV PRN (01:00)
[2019-07-20] MEDS ORDERED: 0.9 % SODIUM CHLORIDE 10 ML DISP.SYRIN. IV PRN (01:00)
[2019-07-20] MEDS ORDERED: NITROGLYCERIN SUBLINGUAL 0.4 MG BOTTLE OF 25. SL PRN (01:00)
[2019-07-20] MEDS ORDERED: LIDOCAINE 2% 100 MG/5 ML SYRINGE. IV PRN (01:00)
[2019-07-20] MEDS ORDERED: fentaNYL PF VIAL 100 MCG/2 ML VIAL IV PRN (01:00)
[2019-07-20] MEDS ORDERED: HYDROcodone/APAP 5/325MG 1 TAB TABLET PO PRN (01:00)
[2019-07-20] MEDS ORDERED: CLOPIDOGREL BISULFATE 75 MG TABLET PO ONE (01:00)
[2019-07-20] MEDS ORDERED: BIVALIRUDIN 250 MG VIAL. IV ONE (01:00)
[2019-07-20] MEDS ORDERED: NITROGLYCERIN 200 MCG/2 ML SYRINGE FOR CATH/VASC LAB. IART ONE (01:00)
--- NOTE | 2019-07-20 01:00 | PDOC4 ---
PROCEDURE Procedure Brief cath note. Mild disease in the LAD. 80-85% lesion in mid LCX. Small RCA with no lesions. 3.0 x 18 bare metal stent to the LCX. 0% residual. Continue post PCI protocol. Discussed with the patient. No family present at this time. Full report to follow. FLORI WILLAMS MD Jul 20, 2019 01:00
[2019-07-20 05:00] LABS: BASO # 0.1 x10^3/uL (0.0-0.2); BASO % 1 % (0-3); EOS % 0 % (0-3); HEMATOCRIT 26.1 % (36.0-47.0); HEMOGLOBIN 8.4 g/dL (12.0-15.5); LYMPH # 2.3 x10^3/uL (1.0-4.8); LYMPH % 21 % (24-48); MEAN CORPUSCULAR HEMOGLOBIN 23 pg (25-35); MEAN CORPUSCULAR HGB CONC 32 g/dL (31-37); MEAN CORPUSCULAR VOLUME 71 fL (79-100); MONO # 1.3 x10^3/uL (0.0-1.1); MONO % 12 % (0-9); NEUT # 7.2 x10^3/uL (1.8-7.7); NEUT % 66 % (31-73); PLATELET COUNT 476 x10^3/uL (140-400); RED CELL DISTRIBUTION WIDTH 18.8 % (11.5-14.5); WHITE BLOOD COUNT 10.9 x10^3/uL (4.0-11.0)
[2019-07-20 05:30] LABS: CALCIUM 8.5 mg/dL (8.5-10.1); CREATININE 0.9 mg/dL (0.6-1.0); GFR 72.2; POTASSIUM 3.3 mmol/L (3.5-5.1)
[2019-07-20 05:33] LABS: CHOLESTEROL/HDL RATIO 2.3
--- NOTE | 2019-07-20 06:35 | RAD ---
Study: PORTABLE CHEST 1V Indication: Chest pain. Comparison: Most recently on 06/09/2019 Findings: Similar haziness in the right infrahilar region. Persistent though less pronounced ill-defined haziness at the upper right lung emanating from the superior hilum and extending to the pleural margin. Improved aeration of the left lung without visualization of the previously seen peripheral opacity at the upper lung zone. No dense lobar infiltrate. No pneumothorax or large effusion. Similar background increased lung markings with small areas of nodularity. Partially evaluated degenerative changes of both shoulders. Aortic arch atherosclerotic calcifications. No free air seen under the diaphragm. Impression: 1. No acute radiographic abnormality of the chest. Relative to the 06/09/2019 comparison, improved appearance of the chest with scattered hazy opacities seen previously that are less pronounced on the current exam. 2. Background increased lung markings with reticulonodular opacification as was present previously. If there are risk factors for lung malignancy, low dose CT on a nonemergent basis would be beneficial. Electronically signed by: FRANCISCO SORENSON MD (07/20/2019 6:32 AM) [id number]
--- NOTE | 2019-07-20 07:13 | EKG ---
[facility] [address] [place] [id number] Test Date: 2019-07-19 Test Time: 22:49:25 Pat Name: SHANTA MONDRAGON Department: Room: 107 1 Gender: F Pack Operator: : [id number] Requested By: ANTONIO MCMULLEN Order Number: [id number] Reading MD: Mau Newberry MD Measurements Intervals Mckean Rate: 79 P: 48 IA: 158 QRS: 63 QRSD: 78 T: 73 QT: 402 QTc: 462 Interpretive Statements SINUS RHYTHM NON-SPECIFIC ST/T CHANGES Electronically Signed On 07-28-2019 10:02:24 CDT by Mau Newberry MD
[2019-07-20] MEDS ORDERED: clonazePAM 0.5 MG TABLET PO PRN (08:45)
[2019-07-20] MEDS ORDERED: MAGNESIUM SULFATE 2GM 50 ML IV ONE ×2 (08:45→17:30)
[2019-07-20] MEDS ORDERED: POTASSIUM CHLORIDE 20 MEQ TABLET.ER. PO ONE ×2 (08:45→17:00)
--- NOTE | 2019-07-20 08:52 | PDOC1 ---
History and Physical Date of Admission Date of Admission DATE: 07/20/19 TIME: 08:46 Source Source: Chart review, Patient History of Present Illness History of Present Illness MS. Atkins, is a 83-year-old female admit with new chest pain. She had mild pain all day yesterday, and went to bed early, then was awokened after 9pm with severe crushing chest pain and radiate to arms and back. w/ pressure sensation, 05/23 she came by EMS and complained of associated shortness of air, no nausea no prior cardiac history or pain. Patient reports sensation of pressure pain. Denies trauma. Denies fever or chills. Denies cough. Cardiac risk factors of high blood pressure, high cholesterol, smoking, and family history. she has stopped her potassium, as she had a high level lately. Past Medical History Cardiovascular: HTN, Hyperlipidemia Pulmonary: Bronchitis, COPD GI: No pertinent hx Psych: Anxiety, Depression Musculoskeletal: low back pain Endocrine: Diabetes, Hypothyroidism Past Surgical History Past Surgical History: Hysterectomy, Other Family History Family History: Heart Disease, Hypertension Social History Smoke: <1 pack per day ALCOHOL: none Drugs: None Current Problem List Problem List Problems Medical Problems: (1) STEMI (ST elevation myocardial infarction) Status: Acute Current Medications Current Medications Current Medications Heparin Sodium (Porcine) (Heparin Sodium) 4,000 unit 1X ONCE IV Last administered on 07/19/19at 23:02; Start 07/19/19 at 23:00; Stop 07/19/19 at 23:06; Status DC Fentanyl Citrate (Fentanyl 2ml Vial) 25 mcg 1X ONCE IV Last administered on 07/19/19at 23:01; Start 07/19/19 at 23:00; Stop 07/19/19 at 23:06; Status DC Ondansetron HCl (Zofran) 4 mg PRN Q8HRS PRN IV NAUSEA/VOMITING; Start 07/19/19 at 23:00; Stop 07/20/19 at 22:59 Fentanyl Citrate (Fentanyl 2ml Vial) 25 mcg PRN Q2HR PRN IV PAIN; Start 07/19/19 at 23:00 Lidocaine HCl (Lidocaine 1% 20ml Vial) 20 ml STK-MED ONCE .ROUTE ; Start 07/19/19 at 23:22; Stop 07/19/19 at 23:22; Status DC Heparin Sodium/ Sodium Chloride 1,000 ml @ As Directed STK-MED ONCE .ROUTE ; Start 07/19/19 at 23:22; Stop 07/19/19 at 23:22; Status DC Fentanyl Citrate (Fentanyl 2ml Vial) 100 mcg STK-MED ONCE .ROUTE ; Start 07/19/19 at 23:27; Stop 07/19/19 at 23:27; Status DC Midazolam HCl (Versed) 2 mg STK-MED ONCE .ROUTE ; Start 07/19/19 at 23:27; Stop 07/19/19 at 23:27; Status DC Bivalirudin (Angiomax) 250 mg STK-MED ONCE IV ; Start 07/19/19 at 23:56; Stop 07/19/19 at 23:56; Status DC Heparin Sodium (Porcine) (Heparin Sodium) 10,000 unit STK-MED ONCE .ROUTE ; Start 07/20/19 at 00:00; Stop 07/20/19 at 00:01; Status DC Iodixanol (Visipaque 320) 100 ml STK-MED ONCE .ROUTE ; Start 07/20/19 at 00:07; Stop 07/20/19 at 00:07; Status DC Nitroglycerin (Nitroglycerin) 200 mcg STK-MED ONCE .ROUTE ; Start 07/20/19 at 00:25; Stop 07/20/19 at 00:25; Status DC Clopidogrel Bisulfate (Plavix) 75 mg STK-MED ONCE .ROUTE ; Start 07/20/19 at 00:35; Stop 07/20/19 at 00:35; Status DC Nitroglycerin (Nitroglycerin) 100 mcg 1X ONCE IART Last administered on 07/20/19at 01:00; Start 07/20/19 at 01:00; Stop 07/20/19 at 01:32; Status DC Heparin Sodium/ Sodium Chloride (HEPARIN for ARTERIAL LINE FLUSH) 1,000 unit 1X ONCE IART Last administered on 07/20/19at 01:00; Start 07/20/19 at 01:00; Stop 07/20/19 at 01:31; Status DC Iodixanol (Visipaque 320) 239 ml 1X ONCE IART Last administered on 07/20/19at 01:00; Start 07/20/19 at 01:00; Stop 07/20/19 at 01:31; Status DC Bivalirudin (Angiomax) 250 mg 1X ONCE IV Last administered on 07/20/19at 01:00; Start 07/20/19 at 01:00; Stop 07/20/19 at 01:30; Status DC Clopidogrel Bisulfate (Plavix) 600 mg 1X ONCE PO Last administered on 07/20/19at 01:00; Start 07/20/19 at 01:00; Stop 07/20/19 at 01:30; Status DC Lidocaine HCl (Lidocaine 1% 20ml Vial) 18 ml 1X ONCE INJ Last administered on 07/20/19at 01:00; Start 07/20/19 at 01:00; Stop 07/20/19 at 01:32; Status DC Sodium Chloride (Normal Saline Flush) 3 ml QSHIFT PRN IV AFTER MEDS AND BLOOD DRAWS; Start 07/20/19 at 01:00 Sodium Chloride 1,000 ml @ 60 mls/hr [id number] IV Last administered on 07/20/19at 01:00; Start 07/20/19 at 01:00; Stop 07/20/19 at 01:31; Status DC Aspirin (Ecotrin) 325 mg DAILYWBKFT PO ; Start 07/21/19 at 08:00 Clopidogrel Bisulfate (Plavix) 75 mg DAILYWBKFT PO ; Start 07/21/19 at 08:00 Metoprolol Tartrate (Lopressor) 12.5 mg BID PO ; Start 07/20/19 at 09:00 Lisinopril (Prinivil) 5 mg DAILY PO ; Start 07/20/19 at 09:00 Atorvastatin Calcium (Lipitor) 20 mg QHS PO ; Start 07/20/19 at 21:00 Acetaminophen (Tylenol) 650 mg PRN Q6HRS PRN PO MILD PAIN / TEMP; Start 07/20/19 at 01:00 Fentanyl Citrate (Fentanyl 2ml Vial) 50 mcg PRN Q1HR PRN IV MODERATE OR SEVERE PAIN; Start 07/20/19 at 01:00 Nitroglycerin (Nitrostat) 0.4 mg PRN Q5MIN PRN SL CHEST PAIN; Start 07/20/19 at 01:00 Amiodarone HCl 150 mg/Dextrose 103 ml @ 600 mls/hr 1X PRN PRN IV FOR VENTRICULAR TACHYCARDIA; Start 07/20/19 at 01:00 Lidocaine HCl (Lidocaine HCl 2% Abboject) 100 mg 1X PRN PRN IV FOR VENTRICULAR TACHYCARDIA; Start 07/20/19 at 01:00 Atropine Sulfate (ATROPINE 0.5mg SYRINGE) 0.5 mg PRN 1X PRN IV BRADYCARDIA; Start 07/20/19 at 01:00 Acetaminophen/ Hydrocodone Bitart (Lortab 5/325) 1 tab PRN Q4HRS PRN PO MILD PAIN 1-3; Start 07/20/19 at 01:00 Cetirizine HCl (ZyrTEC) 10 mg DAILY PO ; Start 07/20/19 at 09:00 Clonazepam (KlonoPIN) 0.5 mg PRN BID PRN PO ANXIETY; Start 07/20/19 at 08:45 Gabapentin (Neurontin) 300 mg TID PO ; Start 07/20/19 at 09:00 Levothyroxine Sodium (Synthroid) 75 mcg DAILY PO ; Start 07/20/19 at 09:00 Sertraline HCl (Zoloft) 50 mg HS PO ; Start 07/20/19 at 21:00 Potassium Chloride (Klor-Con) 40 meq 1X ONCE PO ; Start 07/20/19 at 08:45; Stop 07/20/19 at 08:46 Magnesium Sulfate 50 ml @ 25 mls/hr 1X ONCE IV ; Start 07/20/19 at 08:45; Stop 07/20/19 at 10:44; Status UNV Active Scripts Active Clonazepam (Clonazepam) 0.5 Mg Tablet 1 Tab PO BID PRN Reported Sertraline Hcl 50 Mg Tablet 50 Mg PO HS Levothyroxine Sodium 75 Mcg Tablet 1 Tab PO DAILY Cetirizine Hcl 10 Mg Tablet 1 Tab PO DAILY Gabapentin (Gabapentin) 300 Mg Capsule 1 Cap PO TID Allergies Allergies: Coded Allergies: naproxen (Verified Allergy, Intermediate, 06/10/19) ROS General: No: Chills, Night Sweats, Fatigue, Malaise, Appetite, Other PSYCHOLOGICAL ROS: No: Anxiety, Behavioral Disorder, Concentration difficultie, Decreased libido, Depression, Disorientation, Hallucinations, Hostility, Irritablity, Memory difficulties, Mood Swings, Obsessive thoughts, Physical abuse, Sexual abuse, Sleep disturbances, Suicidal ideation, Other Eyes: No Blurry vision, No Decreased vision, No Double vision, No Dry eyes, No Excessive tearing, No Eye Pain, No Itchy Eyes, No Loss of vision, No Photophobia, No Scotomata, No Uses contacts, No Uses glasses, No Other HEENT: No: Heacaches, Visual Changes, Hearing change, Nasal congestion, Nasal discharge, Oral lesions, Sinus pain, Sore Throat, Epistaxis, Sneezing, Snoring, Tinnitus, Vertigo, Vocal changes, Other Respiratory: No: Cough, Hemoptysis, Orthopnea, Pleuritic Pain, Shortness of breath, SOB with excertion, Sputum Changes, Stridor, Tachypnea, Wheezing, Other Cardiovascular: yes Chest Pain, yes Orthopnea; No Palpitations, No Paroxysmal Noc. Dyspnea, No Edema, No Lt Headedness, No Other Gastrointestinal: No Nausea, No Vomiting, No Abdominal Pain, No Diarrhea, No Co nstipation, No Melena, No Hematochezia, No Other Genitourinary: No Dysuria, No Frequency, No Incontinence, No Hematuria, No Retention, No Discharge, No Urgency, No Pain, No Flank Pain, No Other, No , No , No , No , No , No , No Musculoskeletal: Yes Pain In: (back); No Gait Disturbance, No Joint Pain, No Joint Stiffness, No Joint Swelling, No Muscle Pain, No Muscular Weakness, No Swelling In:, No Other Neurological: No Behavorial Changes, No Bowel/Bladder ControlChng, No Confusion, No Dizziness, No Gait Disturbance, No Headaches, No Impaired Pest Controller Assistant rd/balance, No Memory Loss, No Numbness/Tingling, No Seizures, No Speech Problems, No Tremors, No Visual Changes, No Weakness, No Other Skin: Yes Dry Skin Physical Exam General: Alert, Oriented X3, Cooperative, No acute distress HEENT: Atraumatic, PERRLA, Mucous membr. moist/pink Lungs: Clear to auscultation Heart: no gallops, no murmurs Extremities: No cyanosis, No edema, Normal pulses Skin: No rashes Neuro: Normal gait, Normal speech, Normal tone, Cranial nerves 3-12 NL Psych/Mental Status: Mental status NL, Mood NL Vitals Vitals Vital Signs Date Time Temp Pulse Resp B/P (MAP) Pulse Ox O2 Delivery O2 Flow Rate FiO2 07/20/19 04:00 72 18 128/60 (82) 99 Room Air 07/20/19 01:15 98.5 98.5 Labs Labs Laboratory Tests Test 07/19/19 22:51 10/6/19 22:54 07/19/19 23:13 07/20/19 02:06 Activated Partial Thromboplast Time 31 SEC (24-38) White Blood Count 11.4 x10^3/uL (4.0-11.0) Red Blood Count 3.87 x10^6/uL (3.50-5.40) Hemoglobin 8.8 g/dL (12.0-15.5) Hematocrit 27.2 % (36.0-47.0) Mean Corpuscular Volume 70 fL (79-100) Mean Corpuscular Hemoglobin 23 pg (25-35) Mean Corpuscular Hemoglobin Concent 32 g/dL (31-37) Red Cell Distribution Width 18.7 % (11.5-14.5) Platelet Count 511 x10^3/uL (140-400) Neutrophils (%) (Auto) 65 % (31-73) Lymphocytes (%) (Auto) 18 % (24-48) Monocytes (%) (Auto) 15 % (0-9) Eosinophils (%) (Auto) 1 % (0-3) Basophils (%) (Auto) 1 % (0-3) Neutrophils # (Auto) 7.4 x10^3/uL (1.8-7.7) Lymphocytes # (Auto) 2.1 x10^3/uL (1.0-4.8) Monocytes # (Auto) 1.7 x10^3/uL (0.0-1.1) Eosinophils # (Auto) 0.1 x10^3/uL (0.0-0.7) Basophils # (Auto) 0.1 x10^3/uL (0.0-0.2) Platelet Estimate Increased (ADEQUATE) Hypochromasia Mod Anisocytosis Slight Microcytosis Mod Target Cells Occ Tear Drop Cells Occ Schistocytes Occ Prothrombin Time 15.5 SEC (11.7-14.0) Prothromb Time International Ratio 1.3 (0.8-1.1) Sodium Level 138 mmol/L (136-145) Potassium Level 3.1 mmol/L (3.5-5.1) Chloride Level 99 mmol/L (98-107) Carbon Dioxide Level 30 mmol/L (21-32) Anion Gap 9 (6-14) Blood Urea Nitrogen 10 mg/dL (7-20) Creatinine 0.9 mg/dL (0.6-1.0) Estimated GFR (Cockcroft-Gault) 72.2 BUN/Creatinine Ratio 11 (6-20) Glucose Level 144 mg/dL (70-99) Calcium Level 8.4 mg/dL (8.5-10.1) Magnesium Level 1.4 mg/dL (1.8-2.4) Total Bilirubin 0.3 mg/dL (0.2-1.0) Aspartate Amino Transf (AST/SGOT) 17 U/L (15-37) Alanine Aminotransferase (ALT/SGPT) 14 U/L (14-59) Alkaline Phosphatase 92 U/L (46-116) Creatine Kinase 95 U/L (26-192) Creatine Kinase MB (Mass) 8.6 ng/mL (0.0-3.6) Creatine Kinase MB Relative Index 9.1 % (0-4) Troponin I Quantitative 1.249 ng/mL (0.000-0.055) 2.394 ng/mL (0.000-0.055) OI-Izq-G-Type Natriuretic Peptide 593 pg/mL (0-449) Total Protein 7.0 g/dL (6.4-8.2) Albumin 2.9 g/dL (3.4-5.0) Albumin/Globulin Ratio 0.7 (1.0-1.7) Lipase 163 U/L (73-393) Test 07/20/19 04:45 White Blood Count 10.9 x10^3/uL (4.0-11.0) Red Blood Count 3.70 x10^6/uL (3.50-5.40) Hemoglobin 8.4 g/dL (12.0-15.5) Hematocrit 26.1 % (36.0-47.0) Mean Corpuscular Volume 71 fL (79-100) Mean Corpuscular Hemoglobin 23 pg (25-35) Mean Corpuscular Hemoglobin Concent 32 g/dL (31-37) Red Cell Distribution Width 18.8 % (11.5-14.5) Platelet Count 476 x10^3/uL (140-400) Neutrophils (%) (Auto) 66 % (31-73) Lymphocytes (%) (Auto) 21 % (24-48) Monocytes (%) (Auto) 12 % (0-9) Eosinophils (%) (Auto) 0 % (0-3) Basophils (%) (Auto) 1 % (0-3) Neutrophils # (Auto) 7.2 x10^3/uL (1.8-7.7) Lymphocytes # (Auto) 2.3 x10^3/uL (1.0-4.8) Monocytes # (Auto) 1.3 x10^3/uL (0.0-1.1) Eosinophils # (Auto) 0.0 x10^3/uL (0.0-0.7) Basophils # (Auto) 0.1 x10^3/uL (0.0-0.2) Sodium Level 138 mmol/L (136-145) Potassium Level 3.3 mmol/L (3.5-5.1) Chloride Level 99 mmol/L (98-107) Carbon Dioxide Level 30 mmol/L (21-32) Anion Gap 9 (6-14) Blood Urea Nitrogen 9 mg/dL (7-20) Creatinine 0.9 mg/dL (0.6-1.0) Estimated GFR (Cockcroft-Gault) 72.2 Glucose Level 123 mg/dL (70-99) Calcium Level 8.5 mg/dL (8.5-10.1) Troponin I Quantitative 4.845 ng/mL (0.000-0.055) Triglycerides Level 58 mg/dL (0-150) Cholesterol Level 156 mg/dL (0-200) LDL Cholesterol, Calculated 75 mg/dL (0-100) VLDL Cholesterol, Calculated 12 mg/dL (0-40) Non-HDL Cholesterol Calculated 87 mg/dL (0-129) HDL Cholesterol 69 mg/dL (40-60) Cholesterol/HDL Ratio 2.3 Laboratory Tests Test 07/19/19 22:51 07/19/19 22:54 07/19/19 23:13 07/20/19 02:06 Activated Partial Thromboplast Time 31 SEC (24-38) White Blood Count 11.4 x10^3/uL (4.0-11.0) Red Blood Count 3.87 x10^6/uL (3.50-5.40) Hemoglobin 8.8 g/dL (12.0-15.5) Hematocrit 27.2 % (36.0-47.0) Mean Corpuscular Volume 70 fL (79-100) Mean Corpuscular Hemoglobin 23 pg (25-35) Mean Corpuscular Hemoglobin Concent 32 g/dL (31-37) Red Cell Distribution Width 18.7 % (11.5-14.5) Platelet Count 511 x10^3/uL (140-400) Neutrophils (%) (Auto) 65 % (31-73) Lymphocytes (%) (Auto) 18 % (24-48) Monocytes (%) (Auto) 15 % (0-9) Eosinophils (%) (Auto) 1 % (0-3) Basophils (%) (Auto) 1 % (0-3) Neutrophils # (Auto) 7.4 x10^3/uL (1.8-7.7) Lymphocytes # (Auto) 2.1 x10^3/uL (1.0-4.8) Monocytes # (Auto) 1.7 x10^3/uL (0.0-1.1) Eosinophils # (Auto) 0.1 x10^3/uL (0.0-0.7) Basophils # (Auto) 0.1 x10^3/uL (0.0-0.2) Platelet Estimate Increased (ADEQUATE) Hypochromasia Mod Anisocytosis Slight Microcytosis Mod Target Cells Occ Tear Drop Cells Occ Schistocytes Occ Prothrombin Time 15.5 SEC (11.7-14.0) Prothromb Time International Ratio 1.3 (0.8-1.1) Sodium Level 138 mmol/L (136-145) Potassium Level 3.1 mmol/L (3.5-5.1) Chloride Level 99 mmol/L (98-107) Carbon Dioxide Level 30 mmol/L (21-32) Anion Gap 9 (6-14) Blood Urea Nitrogen 10 mg/dL (7-20) Creatinine 0.9 mg/dL (0.6-1.0) Estimated GFR (Cockcroft-Gault) 72.2 BUN/Creatinine Ratio 11 (6-20) Glucose Level 144 mg/dL (70-99) Calcium Level 8.4 mg/dL (8.5-10.1) Magnesium Level 1.4 mg/dL (1.8-2.4) Total Bilirubin 0.3 mg/dL (0.2-1.0) Aspartate Amino Transf (AST/SGOT) 17 U/L (15-37) Alanine Aminotransferase (ALT/SGPT) 14 U/L (14-59) Alkaline Phosphatase 92 U/L (46-116) Creatine Kinase 95 U/L (26-192) Creatine Kinase MB (Mass) 8.6 ng/mL (0.0-3.6) Creatine Kinase MB Relative Index 9.1 % (0-4) Troponin I Quantitative 1.249 ng/mL (0.000-0.055) 2.394 ng/mL (0.000-0.055) ED-Lta-P-Type Natriuretic Peptide 593 pg/mL (0-449) Total Protein 7.0 g/dL (6.4-8.2) Albumin 2.9 g/dL (3.4-5.0) Albumin/Globulin Ratio 0.7 (1.0-1.7) Lipase 163 U/L (73-393) Test 07/20/19 04:45 White Blood Count 10.9 x10^3/uL (4.0-11.0) Red Blood Count 3.70 x10^6/uL (3.50-5.40) Hemoglobin 8.4 g/dL (12.0-15.5) Hematocrit 26.1 % (36.0-47.0) Mean Corpuscular Volume 71 fL (79-100) Mean Corpuscular Hemoglobin 23 pg (25-35) Mean Corpuscular Hemoglobin Concent 32 g/dL (31-37) Red Cell Distribution Width 18.8 % (11.5-14.5) Platelet Count 476 x10^3/uL (140-400) Neutrophils (%) (Auto) 66 % (31-73) Lymphocytes (%) (Auto) 21 % (24-48) Monocytes (%) (Auto) 12 % (0-9) Eosinophils (%) (Auto) 0 % (0-3) Basophils (%) (Auto) 1 % (0-3) Neutrophils # (Auto) 7.2 x10^3/uL (1.8-7.7) Lymphocytes # (Auto) 2.3 x10^3/uL (1.0-4.8) Monocytes # (Auto) 1.3 x10^3/uL (0.0-1.1) Eosinophils # (Auto) 0.0 x10^3/uL (0.0-0.7) Basophils # (Auto) 0.1 x10^3/uL (0.0-0.2) Sodium Level 138 mmol/L (136-145) Potassium Level 3.3 mmol/L (3.5-5.1) Chloride Level 99 mmol/L (98-107) Carbon Dioxide Level 30 mmol/L (21-32) Anion Gap 9 (6-14) Blood Urea Nitrogen 9 mg/dL (7-20) Creatinine 0.9 mg/dL (0.6-1.0) Estimated GFR (Cockcroft-Gault) 72.2 Glucose Level 123 mg/dL (70-99) Calcium Level 8.5 mg/dL (8.5-10.1) Troponin I Quantitative 4.845 ng/mL (0.000-0.055) Triglycerides Level 58 mg/dL (0-150) Cholesterol Level 156 mg/dL (0-200) LDL Cholesterol, Calculated 75 mg/dL (0-100) VLDL Cholesterol, Calculated 12 mg/dL (0-40) Non-HDL Cholesterol Calculated 87 mg/dL (0-129) HDL Cholesterol 69 mg/dL (40-60) Cholesterol/HDL Ratio 2.3 VTE Prophylaxis Ordered VTE Prophylaxis Devices: Yes VTE Pharmacological Prophylaxi: Yes Assessment/Plan Assessment/Plan 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
[2019-07-20] MEDS: CETIRIZINE HCL 10 MG TABLET. PO SCH (09:13)
[2019-07-20] MEDS: GABAPENTIN 300 MG CAPSULE. PO SCH ×3 (09:13→21:06)
[2019-07-20] MEDS: LISINOPRIL 5 MG TABLET. PO SCH (09:14)
[2019-07-20] MEDS: METOPROLOL TART IMMED RELEASE 25 MG TABLET. PO SCH ×2 (09:14→21:00)
[2019-07-20] MEDS: LEVOTHYROXINE 75 MCG TABLET PO SCH (09:23)
--- NOTE | 2019-07-20 10:04 | EKG ---
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
--- NOTE | 2019-07-20 10:20 | CARD ---
MR#: [id number] Date of Study: 07/20/2019 Ordering Physician: FLORI WILLAMS, Referring Physician: FLORI WILLAMS, Tech: Laurie Cox [facility] [place] APPROVED REPORT EXAM: Two-dimensional and M-mode echocardiogram with Doppler and color Doppler. Other Information Quality : Average Rhythm : Other INDICATION STEMI 2D DIMENSIONS RVDd3.0 (2.9-3.5cm)Left Atrium(2D)3.4 (1.6-4.0cm) IVSd1.1 (0.7-1.1cm)Aortic Root(2D)2.3 (2.0-3.7cm) LVDd3.7 (3.9-5.9cm)LVOT Diameter1.8 (1.8-2.4cm) PWd1.2 (0.7-1.1cm)LVDs2.7 (2.5-4.0cm) FS (%) 26.4 %SV29.8 ml LVEF(%)52.6 (>50%) M-Mode DIMENSIONS Left Atrium(MM)3.30 (2.5-4.0cm)Aortic Root2.43 (2.2-3.7cm) Aortic Valve AoV Peak Arley.157.7cm/sAoV VTI30.4cm AO Peak GR.9.9mmHgLVOT VTI 17.53cm AO Mean GR.5mmHgAVA (VTI)1.50cm2 Mitral Valve MV E Cpnukago56.5cm/sMV E Peak Gr.68mmHg MV DECEL [id number] A Ujveotnv98.4cm/s MV E Mean Gr.68mmHgE/A Ratio1.2 MV A [id number] Tricuspid Valve TR P. Ambhlypn302rd/sRAP [id number] TR Peak Gr.42ftNyXFQB64csAr LEFT VENTRICLE The left ventricle is normal size. There is mild concentric left ventricular hypertrophy. The left ve ntricular systolic function is normal. The Ejection Fraction is 55-60%. There is normal LV segmental wall motion. RIGHT VENTRICLE The right ventricle is normal size. There is normal right ventricular wall thickness. The right ventr icular systolic function is normal. ATRIA The left atrium size is normal. The right atrium size is normal. The interatrial septum is intact wit h no evidence for an atrial septal defect or patent foramen ovale as noted on 2-D or Doppler imaging. AORTIC VALVE The aortic valve is thickened but opens well. The aortic valve is trileaflet. Doppler and Color Flow revealed no significant aortic regurgitation. There is no significant aortic valvular stenosis. There is no aortic valvular vegetation. MITRAL VALVE The mitral valve is thickened but opens well. There is no evidence of mitral valve prolapse. There is no mitral valve stenosis. Doppler and Color-flow revealed mild mitral regurgitation. TRICUSPID VALVE The tricuspid valve is normal in structure and function. Doppler and Color Flow revealed mild tricusp id regurgitation. The PA pressure was estimated at 48 mmHg. There is no tricuspid valve prolapse or v egetation. There is no tricuspid valve stenosis. PULMONIC VALVE The pulmonic valve is not well visualized. GREAT VESSELS The aortic root is normal in size. The ascending aorta is normal in size. PERICARDIAL EFFUSION There is no evidence of significant pericardial effusion. Critical Notification Critical Value: No <Conclusion> The left ventricular systolic function is normal. The Ejection Fraction is 55-60%. There is normal LV segmental wall motion. Mild mitral regurgitation. Mild tricuspid regurgitation. The PA pressure was estimated at 48 mmHg. There is no evidence of significant pericardial effusion. Signed by : Yonny Trevino, Electronically Approved : 07/20/2019 10:19:52
--- NOTE | 2019-07-20 13:02 | CARD ---
MR#: [id number] Date of Study: 07/19/2019 Ordering Physician: FLORI TIRADO, Referring Physician: FLORI TIRADO, Tech: Osito Leroy, RT (R) APPROVED REPORT Procedures. Left heart catheterization Selective coronary angiogram Bare-metal stent placement to the left circumflex. The patient is an 83-year-old female who report development of chest pain this evening. Paramedics we re called. Patient was transported to the emergency room where the patient continued to have chest pa in despite nitroglycerin. EKG was suggestive of an inferior wall ST elevated myocardial infarction. S ERIC protocol was activated. 4000 units of heparin were administered. Risks and benefits of the cardi ac catheterization possible intervention were discussed the patient. She consented to proceed. After consent informed consent was obtained the patient was brought to the heart catheterization lab. The area of the right femoral artery was prepared the usual manner with Betadine, sterile draping an d local anesthetic. An 18-gauge needle was used to enter the right femoral artery, a wire placed and a 6 Faroese sheath placed over the wire. A 6 Faroese JL4 diagnostic catheter was advanced to the ascend ing aorta. It was used to individually engage the left circumflex and the LAD since they had separate ostia. Sequential injections in various views were obtained. A 6 Faroese Rhett diagnostic right ca theter was then used to engage the right coronary artery. Sequential injections were performed. Imagi ngs were reviewed the patient had no total occlusions but did have a great a greater than 80% mid lef t circumflex lesion. We proceeded to revascularize lesion. Angiomax as per protocol was administered. A 6 Faroese JL4 guide was unable to cleanly engage the left circumflex vessel. It therefore was replaced with a 6 Faroese JL 5 guide. This was used to engage the ostium of the left circumflex. A PT choice wire was used to cross the lesion. The lesion was initial ly dilated with a 2.5 x 15 trek balloon with 2 inflations at 8 antelmo for 15 seconds. It was then stente d with a 3.0 x 18 bare-metal MultiLink vision stent with one inflation at 16 antelmo for 16 seconds. Resi dual lesion was 0%. The guiding system was removed from the patient. A pigtail was then advanced to ascending aorta and then the left ventricle. Pressures were obtained b ut no left ventricular gram was performed secondary to contrast load. The catheter was removed from t he patient. Injection the sheath showed normal placement. The sheath was removed and sealed with an A ngio-Seal product. The patient was then moved to the intensive care unit. Findings. Hemodynamics. LV pressure of 146/26, aortic root pressure 144/69. Coronaries. Left main. The patient had several ostium of the LAD and left circumflex system. LAD. The LAD was a moderate size vessel. It passed around the apex. It had a proximal 25% lesion. Left circumflex. The left circumflex was a moderate size vessel. It had a mid greater than 80% lesion . Right coronary artery. The right coronary was a moderately small vessel with no lesions. <Conclusion> Single-vessel coronary artery disease with a greater than 80% lesion in the left circumflex. Mild LAD disease of less than 25% Elevated LVEDP Successful bare metal stent placement to the left circumflex decreasing a greater than 80% lesion to 0%. Signed by : Flori Tirado MD Electronically Approved : 07/20/2019 13:01:40
--- NOTE | 2019-07-20 15:15 | PDOC ---
CARDIO Progress Notes Date and Time Date of Service 07/20/19 Time of Evaluation 1500 Subjective Subjective: No Chest Pain, No Palpitations, Other (mild SOA) Vitals Vitals Vital Signs Date Time Temp Pulse Resp B/P (MAP) Pulse Ox O2 Delivery O2 Flow Rate FiO2 07/20/19 14:00 68 20 111/51 (71) 99 Room Air 07/20/19 12:00 98.3 98.3 Weight Weight [ ] Laboratory Labs Laboratory Tests Test 07/19/19 22:51 07/19/19 22:54 07/19/19 23:13 07/20/19 02:06 Activated Partial Thromboplast Time 31 SEC (24-38) White Blood Count 11.4 x10^3/uL (4.0-11.0) Red Blood Count 3.87 x10^6/uL (3.50-5.40) Hemoglobin 8.8 g/dL (12.0-15.5) Hematocrit 27.2 % (36.0-47.0) Mean Corpuscular Volume 70 fL (79-100) Mean Corpuscular Hemoglobin 23 pg (25-35) Mean Corpuscular Hemoglobin Concent 32 g/dL (31-37) Red Cell Distribution Width 18.7 % (11.5-14.5) Platelet Count 511 x10^3/uL (140-400) Neutrophils (%) (Auto) 65 % (31-73) Lymphocytes (%) (Auto) 18 % (24-48) Monocytes (%) (Auto) 15 % (0-9) Eosinophils (%) (Auto) 1 % (0-3) Basophils (%) (Auto) 1 % (0-3) Neutrophils # (Auto) 7.4 x10^3/uL (1.8-7.7) Lymphocytes # (Auto) 2.1 x10^3/uL (1.0-4.8) Monocytes # (Auto) 1.7 x10^3/uL (0.0-1.1) Eosinophils # (Auto) 0.1 x10^3/uL (0.0-0.7) Basophils # (Auto) 0.1 x10^3/uL (0.0-0.2) Platelet Estimate Increased (ADEQUATE) Hypochromasia Mod Anisocytosis Slight Microcytosis Mod Target Cells Occ Tear Drop Cells Occ Schistocytes Occ Prothrombin Time 15.5 SEC (11.7-14.0) Prothromb Time International Ratio 1.3 (0.8-1.1) Sodium Level 138 mmol/L (136-145) Potassium Level 3.1 mmol/L (3.5-5.1) Chloride Level 99 mmol/L (98-107) Carbon Dioxide Level 30 mmol/L (21-32) Anion Gap 9 (6-14) Blood Urea Nitrogen 10 mg/dL (7-20) Creatinine 0.9 mg/dL (0.6-1.0) Estimated GFR (Cockcroft-Gault) 72.2 BUN/Creatinine Ratio 11 (6-20) Glucose Level 144 mg/dL (70-99) Calcium Level 8.4 mg/dL (8.5-10.1) Magnesium Level 1.4 mg/dL (1.8-2.4) Total Bilirubin 0.3 mg/dL (0.2-1.0) Aspartate Amino Transf (AST/SGOT) 17 U/L (15-37) Alanine Aminotransferase (ALT/SGPT) 14 U/L (14-59) Alkaline Phosphatase 92 U/L (46-116) Creatine Kinase 95 U/L (26-192) Creatine Kinase MB (Mass) 8.6 ng/mL (0.0-3.6) Creatine Kinase MB Relative Index 9.1 % (0-4) Troponin I Quantitative 1.249 ng/mL (0.000-0.055) 2.394 ng/mL (0.000-0.055) CI-Rwn-Y-Type Natriuretic Peptide 593 pg/mL (0-449) Total Protein 7.0 g/dL (6.4-8.2) Albumin 2.9 g/dL (3.4-5.0) Albumin/Globulin Ratio 0.7 (1.0-1.7) Lipase 163 U/L (73-393) Test 07/20/19 04:45 White Blood Count 10.9 x10^3/uL (4.0-11.0) Red Blood Count 3.70 x10^6/uL (3.50-5.40) Hemoglobin 8.4 g/dL (12.0-15.5) Hematocrit 26.1 % (36.0-47.0) Mean Corpuscular Volume 71 fL (79-100) Mean Corpuscular Hemoglobin 23 pg (25-35) Mean Corpuscular Hemoglobin Concent 32 g/dL (31-37) Red Cell Distribution Width 18.8 % (11.5-14.5) Platelet Count 476 x10^3/uL (140-400) Neutrophils (%) (Auto) 66 % (31-73) Lymphocytes (%) (Auto) 21 % (24-48) Monocytes (%) (Auto) 12 % (0-9) Eosinophils (%) (Auto) 0 % (0-3) Basophils (%) (Auto) 1 % (0-3) Neutrophils # (Auto) 7.2 x10^3/uL (1.8-7.7) Lymphocytes # (Auto) 2.3 x10^3/uL (1.0-4.8) Monocytes # (Auto) 1.3 x10^3/uL (0.0-1.1) Eosinophils # (Auto) 0.0 x10^3/uL (0.0-0.7) Basophils # (Auto) 0.1 x10^3/uL (0.0-0.2) Sodium Level 138 mmol/L (136-145) Potassium Level 3.3 mmol/L (3.5-5.1) Chloride Level 99 mmol/L (98-107) Carbon Dioxide Level 30 mmol/L (21-32) Anion Gap 9 (6-14) Blood Urea Nitrogen 9 mg/dL (7-20) Creatinine 0.9 mg/dL (0.6-1.0) Estimated GFR (Cockcroft-Gault) 72.2 Glucose Level 123 mg/dL (70-99) Calcium Level 8.5 mg/dL (8.5-10.1) Troponin I Quantitative 4.845 ng/mL (0.000-0.055) Triglycerides Level 58 mg/dL (0-150) Cholesterol Level 156 mg/dL (0-200) LDL Cholesterol, Calculated 75 mg/dL (0-100) VLDL Cholesterol, Calculated 12 mg/dL (0-40) Non-HDL Cholesterol Calculated 87 mg/dL (0-129) HDL Cholesterol 69 mg/dL (40-60) Cholesterol/HDL Ratio 2.3 Physical Exam HEENT: Neck Supple W Full Motion Chest: Symmetric LUNGS: Other (diminished bases ) Heart: S1S2, RRR, murmurs (2/6 systolic murmur ) Abdomen: Soft N/T Extremities: No Edema, Other (right femoral arteriotomy site soft, clean, and dry. No erythema, ecchymosis, or hematoma presents. Neurovascular status intact. ) Neurology: alert, oriented, follow commands Assessment Assessment 1. STEMI 2. CAD s/p PCI/BMS to LCx. No acute events overnight 3. Mild acute on chronic diastolic HF 4. Hypertension; controlled 6. Hyperlipidemia; LDL 75. statin therapy 6. Diabetes, II 7. Hypothyroidism 8. Hypokalemia Recommendations Mild diuresis Check Mg Secondary prevention including DAPT with ASA and Plavix Risk stratification modification Cardiac rehab referral May transfer to [facility] Monitor overnight with probable discharge tomorrow. KAYLEY GARZA APRN Jul 20, 2019 15:15
--- NOTE | 2019-07-20 16:41 | NUR ---
SS following for discharge planning. SS reviewed pt chart. Pt is from home and is currently on room air. PT/OT ordered. SS will continue to follow for discharge planning.
[2019-07-20] MEDS ORDERED: FUROSEMIDE 20 MG/2 ML VIAL. IVP ONE (17:00)
[2019-07-20] MEDS: ACETAMINOPHEN 325 MG TABLET. PO PRN (17:35)
[2019-07-20] MEDS: SERTRALINE 50 MG TABLET. PO SCH (21:05)
[2019-07-20] MEDS: ATORVASTATIN CALCIUM 20 MG TABLET PO SCH (21:06)
[2019-07-21] VITALS (8 sets, daily range): BP systolic 87–128; BP diastolic 54–60
[2019-07-21 05:33] LABS: BASO # 0.1 x10^3/uL (0.0-0.2); BASO % 1 % (0-3); EOS # 0.2 x10^3/uL (0.0-0.7); EOS % 2 % (0-3); HEMATOCRIT 24.3 % (36.0-47.0); HEMOGLOBIN 7.9 g/dL (12.0-15.5); LYMPH # 1.9 x10^3/uL (1.0-4.8); LYMPH % 24 % (24-48); MEAN CORPUSCULAR HEMOGLOBIN 23 pg (25-35); MEAN CORPUSCULAR HGB CONC 32 g/dL (31-37); MEAN CORPUSCULAR VOLUME 71 fL (79-100); MONO # 0.9 x10^3/uL (0.0-1.1); MONO % 11 % (0-9); NEUT # 4.9 x10^3/uL (1.8-7.7); NEUT % 62 % (31-73); PLATELET COUNT 416 x10^3/uL (140-400); RED BLOOD COUNT 3.43 x10^6/uL (3.50-5.40); RED CELL DISTRIBUTION WIDTH 18.4 % (11.5-14.5); WHITE BLOOD COUNT 7.9 x10^3/uL (4.0-11.0)
[2019-07-21 05:47] LABS: ALBUMIN 2.4 g/dL (3.4-5.0); ALBUMIN/GLOBULIN RATIO 0.6 (1.0-1.7); CALCIUM 8.2 mg/dL (8.5-10.1); GFR 63.9; TOTAL BILIRUBIN 0.3 mg/dL (0.2-1.0); TOTAL PROTEIN 6.5 g/dL (6.4-8.2)
[2019-07-21 07:08] LABS: % BANDS 1 % (0-9); % EOS 2 % (0-5); % LYMPHS 18 % (24-48); % MONOS 7 % (0-10); % SEGS 72 % (35-66); PLT ESTIMATE INCREASED (ADEQUATE)
[2019-07-21 07:09] LABS: ANISOCYTOSIS SLIGHT; HYPOCHROMIA MOD; MICROCYTOSIS MOD
--- NOTE | 2019-07-21 07:18 | EKG ---
[facility] [address] [place] [address] Test Date: 2019-07-21 Test Time: 08:13:40 Pat Name: SHANTA MONDRAGON Department: Room: 200 1 Gender: F Worm Sorter: : 1935 Requested By: FLORI WILLAMS Order Number: [id number] Reading MD: Mau Newberry MD Measurements Intervals Spivey Rate: 66 P: 0 PA: 162 QRS: 36 QRSD: 64 T: 28 QT: 424 QTc: 446 Interpretive Statements SINUS RHYTHM Electronically Signed On 07-28-2019 11:31:11 CDT by Mau Newberry MD
[2019-07-21] MEDS: LEVOTHYROXINE 75 MCG TABLET PO SCH (08:10)
[2019-07-21] MEDS: LISINOPRIL 5 MG TABLET. PO SCH (08:10)
[2019-07-21] MEDS: GABAPENTIN 300 MG CAPSULE. PO SCH ×3 (08:10→20:55)
[2019-07-21] MEDS: ASPIRIN ENTERIC COATED 325 MG TABLET.DR. PO SCH (08:10)
[2019-07-21] MEDS: CETIRIZINE HCL 10 MG TABLET. PO SCH (08:10)
[2019-07-21] MEDS: METOPROLOL TART IMMED RELEASE 25 MG TABLET. PO SCH ×2 (08:11→20:57)
[2019-07-21] MEDS: CLOPIDOGREL BISULFATE 75 MG TABLET PO SCH (08:11)
[2019-07-21] MEDS: ACETAMINOPHEN 325 MG TABLET. PO PRN (08:12)
--- NOTE | 2019-07-21 11:47 | PDOC ---
[facility] [facility] PROGRESS NOTE Chief Complaint Chief Complaint STEMI Mild acute on chronic CHF Hypomagnesemia HTN (controlled) History of Present Illness History of Present Illness 07/21/19 Pt seen and examined in chair Was pleasant Stent placed in LCX Able to stand up, despite being dizzy while walking DW RN Charts and labs reviewed Vitals/I&O Vitals/I&O: Vital Signs Date Time Temp Pulse Resp B/P (MAP) Pulse Ox O2 Delivery O2 Flow Rate FiO2 07/21/19 08:25 Room Air 07/21/19 08:11 64 112/60 07/21/19 07:00 98.2 18 99 98.2 I & O 07/20/19 07/20/19 07/21/19 15:00 23:00 07:00 Intake Total 825 ml 400 ml Balance 825 ml 400 ml Physical Exam General: Alert, Oriented X3, Cooperative, No acute distress Heart: Regular rate Lungs: Clear, Other Abdomen: Normal bowel sounds Extremities: No clubbing, No cyanosis, No edema, Normal pulses Skin: No rashes, No breakdown, No significant lesion Labs Labs: Laboratory Tests Test 07/21/19 04:40 White Blood Count 7.9 x10^3/uL (4.0-11.0) Red Blood Count 3.43 x10^6/uL (3.50-5.40) Hemoglobin 7.9 g/dL (12.0-15.5) Hematocrit 24.3 % (36.0-47.0) Mean Corpuscular Volume 71 fL (79-100) Mean Corpuscular Hemoglobin 23 pg (25-35) Mean Corpuscular Hemoglobin Concent 32 g/dL (31-37) Red Cell Distribution Width 18.4 % (11.5-14.5) Platelet Count 416 x10^3/uL (140-400) Neutrophils (%) (Auto) 62 % (31-73) Lymphocytes (%) (Auto) 24 % (24-48) Monocytes (%) (Auto) 11 % (0-9) Eosinophils (%) (Auto) 2 % (0-3) Basophils (%) (Auto) 1 % (0-3) Neutrophils # (Auto) 4.9 x10^3/uL (1.8-7.7) Lymphocytes # (Auto) 1.9 x10^3/uL (1.0-4.8) Monocytes # (Auto) 0.9 x10^3/uL (0.0-1.1) Eosinophils # (Auto) 0.2 x10^3/uL (0.0-0.7) Basophils # (Auto) 0.1 x10^3/uL (0.0-0.2) Segmented Neutrophils % 72 % (35-66) Band Neutrophils % 1 % (0-9) Lymphocytes % 18 % (24-48) Monocytes % 7 % (0-10) Eosinophils % 2 % (0-5) Platelet Estimate Increased (ADEQUATE) Hypochromasia Mod Anisocytosis Slight Microcytosis Mod Sodium Level 140 mmol/L (136-145) Potassium Level 4.0 mmol/L (3.5-5.1) Chloride Level 104 mmol/L (98-107) Carbon Dioxide Level 29 mmol/L (21-32) Anion Gap 7 (6-14) Blood Urea Nitrogen 11 mg/dL (7-20) Creatinine 1.0 mg/dL (0.6-1.0) Estimated GFR (Cockcroft-Gault) 63.9 BUN/Creatinine Ratio 11 (6-20) Glucose Level 101 mg/dL (70-99) Calcium Level 8.2 mg/dL (8.5-10.1) Magnesium Level 2.4 mg/dL (1.8-2.4) Iron Level 10 ug/dL (50-170) Total Iron Binding Capacity 291 ug/dL (250-450) Iron Saturation 3 % (15-34) Total Bilirubin 0.3 mg/dL (0.2-1.0) Aspartate Amino Transf (AST/SGOT) 25 U/L (15-37) Alanine Aminotransferase (ALT/SGPT) 12 U/L (14-59) Alkaline Phosphatase 83 U/L (46-116) Total Protein 6.5 g/dL (6.4-8.2) Albumin 2.4 g/dL (3.4-5.0) Albumin/Globulin Ratio 0.6 (1.0-1.7) Review of Systems Review of Systems: No chest pain, no palpitations No headache, no changes in vision Assessment and Plan Assessmemt and Plan Problems Medical Problems: (1) STEMI (ST elevation myocardial infarction) Status: Acute Assessment STEMI Possible CHF Hypomagnesemia Plan Mild diuresis per cardiology DAPT with ASA and plavix per cardiology PT/OT Labs Discharge disposition pending Full code Comment Review of Relevant I have reviewed the following items eliel (where applicable) has been applied. Medications: Current Medications Medications (Trade) Dose Ordered Sig/Liyah Route PRN Reason Start Time Stop Time Status Last Admin Dose Admin Aspirin (Ecotrin) 325 mg DAILYWBKFT PO 07/21/19 08:00 07/21/19 08:10 Clopidogrel Bisulfate (Plavix) 75 mg DAILYWBKFT PO 07/21/19 08:00 07/21/19 08:11 Atorvastatin Calcium (Lipitor) 20 mg QHS PO 07/20/19 21:00 07/20/19 21:06 Sertraline HCl (Zoloft) 50 mg HS PO 07/20/19 21:00 07/20/19 21:05 Magnesium Sulfate 50 ml @ 25 mls/hr 1X ONCE IV 07/20/19 17:30 07/20/19 19:29 DC 07/20/19 17:36 Furosemide (Lasix) 20 mg 1X ONCE IVP 07/20/19 17:00 07/20/19 17:01 DC 07/20/19 17:35 Potassium Chloride (Klor-Con) 20 meq 1X ONCE PO 07/20/19 17:00 07/20/19 17:01 DC 07/20/19 17:35 MICHAEL SOLIZ III DO Jul 21, 2019 11:47
--- NOTE | 2019-07-21 13:30 | NUR ---
SS following up with discharge planning. PT/OT recommended home with assistance. Pt is current on services with [facility], ; fax [phone], from previous admission. SS will continue to follow for discharge planning.
--- NOTE | 2019-07-21 16:56 | PDOC ---
CARDIO Progress Notes Date and Time Date of Service 07/21/2019 Time of Evaluation 1640 Subjective Subjective: No Chest Pain, No shortness of breath, No Palpitations Vitals Vitals Vital Signs Date Time Temp Pulse Resp B/P (MAP) Pulse Ox O2 Delivery O2 Flow Rate FiO2 07/21/19 15:00 98.0 68 16 119/60 (79) 98 Room Air 98.0 Weight Weight [ ] Input and Output Intake and Output Intake and Output 07/21/19 09:00 Intake Total 1425 ml Balance 1425 ml Intake Oral 780 ml IV Total 645 ml # Voids 1 # Bowel Movements 1 Laboratory Labs Laboratory Tests Test 07/21/19 04:40 White Blood Count 7.9 x10^3/uL (4.0-11.0) Red Blood Count 3.43 x10^6/uL (3.50-5.40) Hemoglobin 7.9 g/dL (12.0-15.5) Hematocrit 24.3 % (36.0-47.0) Mean Corpuscular Volume 71 fL (79-100) Mean Corpuscular Hemoglobin 23 pg (25-35) Mean Corpuscular Hemoglobin Concent 32 g/dL (31-37) Red Cell Distribution Width 18.4 % (11.5-14.5) Platelet Count 416 x10^3/uL (140-400) Neutrophils (%) (Auto) 62 % (31-73) Lymphocytes (%) (Auto) 24 % (24-48) Monocytes (%) (Auto) 11 % (0-9) Eosinophils (%) (Auto) 2 % (0-3) Basophils (%) (Auto) 1 % (0-3) Neutrophils # (Auto) 4.9 x10^3/uL (1.8-7.7) Lymphocytes # (Auto) 1.9 x10^3/uL (1.0-4.8) Monocytes # (Auto) 0.9 x10^3/uL (0.0-1.1) Eosinophils # (Auto) 0.2 x10^3/uL (0.0-0.7) Basophils # (Auto) 0.1 x10^3/uL (0.0-0.2) Segmented Neutrophils % 72 % (35-66) Band Neutrophils % 1 % (0-9) Lymphocytes % 18 % (24-48) Monocytes % 7 % (0-10) Eosinophils % 2 % (0-5) Platelet Estimate Increased (ADEQUATE) Hypochromasia Mod Anisocytosis Slight Microcytosis Mod Sodium Level 140 mmol/L (136-145) Potassium Level 4.0 mmol/L (3.5-5.1) Chloride Level 104 mmol/L (98-107) Carbon Dioxide Level 29 mmol/L (21-32) Anion Gap 7 (6-14) Blood Urea Nitrogen 11 mg/dL (7-20) Creatinine 1.0 mg/dL (0.6-1.0) Estimated GFR (Cockcroft-Gault) 63.9 BUN/Creatinine Ratio 11 (6-20) Glucose Level 101 mg/dL (70-99) Calcium Level 8.2 mg/dL (8.5-10.1) Magnesium Level 2.4 mg/dL (1.8-2.4) Iron Level 10 ug/dL (50-170) Total Iron Binding Capacity 291 ug/dL (250-450) Iron Saturation 3 % (15-34) Total Bilirubin 0.3 mg/dL (0.2-1.0) Aspartate Amino Transf (AST/SGOT) 25 U/L (15-37) Alanine Aminotransferase (ALT/SGPT) 12 U/L (14-59) Alkaline Phosphatase 83 U/L (46-116) Total Protein 6.5 g/dL (6.4-8.2) Albumin 2.4 g/dL (3.4-5.0) Albumin/Globulin Ratio 0.6 (1.0-1.7) Physical Exam HEENT: Neck Supple W Full Motion Chest: Symmetric LUNGS: Other (diminished bases ) Heart: S1S2, RRR (SR), murmurs (2/6 systolic murmur ) Abdomen: Soft N/T Extremities: No Edema, Other (right femoral arteriotomy site soft, clean, and dry. No erythema, ecchymosis, or hematoma presents. Neurovascular status intact. ) Neurology: alert, oriented, follow commands Assessment Assessment 1. STEMI 2. CAD s/p PCI/BMS to LCx. 3. Mild acute on chronic diastolic HF: compensated 4. Hypertension; marginally low at times 6. Hyperlipidemia; LDL 75. statin therapy 6. Diabetes, II 7. Hypothyroidism Recommendations 1. Check for orthostasis 2. Continue secondary prevention measures. ASA/plavix. 3. deemed unsteady per PT. Will need SNU, unsteady gait 4. Follow up in office. Anticipate DC tomorrow. MILTON DAVIS METAL PATTERNMAKER Jul 21, 2019 16:56
[2019-07-21] MEDS: ATORVASTATIN CALCIUM 20 MG TABLET PO SCH (20:55)
[2019-07-21] MEDS: SERTRALINE 50 MG TABLET. PO SCH (20:55)
[2019-07-22 03:45] VITALS: BP 138/68
[2019-07-22 07:02] VITALS: BP 136/78
[2019-07-22] MEDS: ACETAMINOPHEN 325 MG TABLET. PO PRN (08:54)
[2019-07-22] MEDS: GABAPENTIN 300 MG CAPSULE. PO SCH ×2 (08:54→14:00)
[2019-07-22] MEDS: LEVOTHYROXINE 75 MCG TABLET PO SCH (08:54)
[2019-07-22] MEDS: ASPIRIN ENTERIC COATED 325 MG TABLET.DR. PO SCH (08:54)
[2019-07-22] MEDS: CLOPIDOGREL BISULFATE 75 MG TABLET PO SCH (08:54)
[2019-07-22] MEDS: CETIRIZINE HCL 10 MG TABLET. PO SCH (08:54)
[2019-07-22] MEDS: METOPROLOL TART IMMED RELEASE 25 MG TABLET. PO SCH (08:55)
[2019-07-22] MEDS: LISINOPRIL 5 MG TABLET. PO SCH (08:59)
[2019-07-22 09:25] VITALS: BP_SYST 125; BP_SYST 136; BP_DIAS 64; BP_DIAS 65
[2019-07-22 09:26] VITALS: BP 138/63
[2019-07-22 10:16] VITALS: BP 116/55
[2019-07-22] MEDS ORDERED: CLOP75TA PO (13:00)
--- NOTE | 2019-07-22 13:08 | PDOC ---
CARDIO Progress Notes Date and Time Date of Service 07/22/19 Time of Evaluation 1305 Subjective Subjective: No Chest Pain, No shortness of breath, No Palpitations Vitals Vitals Vital Signs Date Time Temp Pulse Resp B/P (MAP) Pulse Ox O2 Delivery O2 Flow Rate FiO2 07/22/19 10:16 98.2 59 20 116/55 (75) 97 Room Air 98.2 Weight Weight [ ] Input and Output Intake and Output Intake and Output 07/22/19 06:59 Intake Total 820 ml Balance 820 ml Intake Oral 820 ml Physical Exam HEENT: Neck Supple W Full Motion Chest: Symmetric LUNGS: Other (diminished bases ) Heart: S1S2, RRR (SR), murmurs (2/6 systolic murmur ) Abdomen: Soft N/T Extremities: No Edema, Other (right femoral arteriotomy site soft, clean, and dry. No erythema, ecchymosis, or hematoma presents. Neurovascular status intact. ) Neurology: alert, oriented, follow commands Assessment Assessment 1. STEMI 2. CAD s/p PCI/BMS to LCx. No acute events overnight 3. Mild acute on chronic diastolic HF; compensated 4. Hypertension; controlled 6. Hyperlipidemia; LDL 75. statin therapy 6. Diabetes, II 7. Hypothyroidism 8. Tobaccoism; discussed/encouraged cessation Recommendations Secondary prevention including DAPT with ASA and Plavix Risk stratification modification Cardiac rehab referral May discharge from a CV standpoint and f/u in our office with Dr. Malloy as scheduled. KAYLEY GARZA APRN Jul 22, 2019 13:08
--- NOTE | 2019-07-22 13:16 | PDOC ---
[facility] [facility] PROGRESS NOTE Chief Complaint Chief Complaint STEMI Mild acute on chronic CHF Hypomagnesemia HTN (controlled) History of Present Illness History of Present Illness 07/22/19 Pt seen and examined at bedside Was resting, opened eyes upon examination In good mood, requested to go home DW RN Charts and labs reviewed 07/21/19 Pt seen and examined in chair Was pleasant Stent placed in LCX Able to stand up, despite being dizzy while walking DW RN Charts and labs reviewed Vitals/I&O Vitals/I&O: Vital Signs Date Time Temp Pulse Resp B/P (MAP) Pulse Ox O2 Delivery O2 Flow Rate FiO2 07/22/19 10:16 98.2 59 20 116/55 (75) 97 Room Air 98.2 I & O 07/21/19 07/21/19 07/22/19 15:00 23:00 07:00 Intake Total 200 ml 400 ml 220 ml Balance 200 ml 400 ml 220 ml Physical Exam General: Alert, Oriented X3, Cooperative, No acute distress Heart: Regular rate Lungs: Clear, Other Abdomen: Normal bowel sounds, Soft Extremities: No clubbing, No cyanosis, No edema, Normal pulses Skin: No rashes, No breakdown, No significant lesion Review of Systems Review of Systems: No nausea, no vomiting No chest pain, no palpitations Assessment and Plan Assessmemt and Plan Problems Medical Problems: (1) STEMI (ST elevation myocardial infarction) Status: Acute Assessment STEMI Mild acute on chronic diastolic CHF HTN, controlled DM 2 Plan Home meds Send patient home with updated medications ASA/plavix Discharge today Comment Review of Relevant I have reviewed the following items eliel (where applicable) has been applied. MICHAEL SOLIZ III DO Jul 22, 2019 13:16
--- NOTE | 2019-07-22 13:21 | SNU/HH DC ---
DISCHARGE WITH HOME HEALTH DISCHARGE INFORMATION: Final Diagnosis: Problems Medical Problems: (1) STEMI (ST elevation myocardial infarction) Status: Acute Condition on Discharge: Stable CODE STATUS: Code Status: Full HOME HEALTH: Face to Face: I certify this patient is under my care and that I, or a nurse practitioner or physician's communications assistant working with me, had a face to face encounter that meets the physician face to face encounter requirements with this patient on []. Medical Complications: Falls Group Home For: Assess & Educate Safety RN For Eval/Treatment: Yes Physical Therapy For: Evalulation/Treatment Occupational Therapy For: Evaluation/Treatment Home Health Aide For: Self-care PARANORMAL INVESTIGATOR For: Community Resources Pt Meets Homebound Status: Unsteady balance w/ amb, POST DISCHARGE ORDERS: Activity Instructions for Disc: Activity as tolerated Weight Bearing Status after Di: As tolerated DIET AFTER DISCHARGE: Cardiac TREATMENT/EQUIPMENT ORDERS: Adaptive Equipment Issued: None CERTIFICATION STATEMENT: Certification Statement: Certification Statement: Based on the above finding, I certify that this patient is confined to the home and needs intermittent half-way care, physical therapy and/or speech therapy, or continues to need occupational therapy.~ This patient is under my care, and I have initiated the establishment of the plan of care.~ This patient will be followed by myself or a community physician who will periodically review the plan of care. Home Meds Active Scripts Clopidogrel Bisulfate (CLOPIDOGREL) 75 Mg Tablet, 75 MG PO DAILYWBKFT for Antiplatlet, #30 TAB Prov:MICHAEL SOLIZ III DO 07/22/19 Clonazepam (CLONAZEPAM ) 0.5 Mg Tablet, 1 TAB PO BID PRN for ANXIETY, #14 TAB 1 Refill Prov:BILL MCELROY Jr. DO 11/09/18 Reported Medications Sertraline Hcl (SERTRALINE HCL) 50 Mg Tablet, 50 MG PO HS for ANTI-DEPRESSANT, TAB 0 Refills 07/13/15 Levothyroxine Sodium (LEVOTHYROXINE SODIUM) 75 Mcg Tablet, 1 TAB PO DAILY, #30 TAB 5 Refills 07/13/15 Cetirizine Hcl (CETIRIZINE HCL) 10 Mg Tablet, 1 TAB PO DAILY, #30 TAB 5 Refills 07/13/15 Gabapentin (GABAPENTIN ) 300 Mg Capsule, 1 CAP PO TID, #90 CAP 5 Refills 07/13/15 MICHAEL SOLIZ III DO Jul 22, 2019 13:21
[2019-07-22] MEDS ORDERED: LISI-338 PO (13:29)
[2019-07-22] MEDS ORDERED: ATOR20TA58 PO (13:29)
[2019-07-22] MEDS ORDERED: METO25TA4 PO (13:29)
[2019-07-22] MEDS ORDERED: ASPI325T11 PO (13:29)
[2019-07-22 14:19] VITALS: BP 139/62
--- NOTE | 2019-07-22 15:53 | NUR ---
Discharge Note: SHANTA MONDRAGON Discharge instructions and discharge home medications reviewed with Patient and a copy given. All questions have been answered and understanding verbalized. The following instructions and handouts were given: CAD, CAD risk factors, smoking cessation, cardiac diet, [place], Cardiac Rehab Discontinued lines and drains: Peripheral IV intact. Patient discharged to Home w/services with Family Member via Wheelchair
--- NOTE | 2019-07-24 08:54 | DS ---
DATE OF DISCHARGE: 07/22/2019 ADMISSION DIAGNOSIS: Acute myocardial infarction. DISCHARGE DIAGNOSIS: Postop cardiac catheterization with one stent placed. HOSPITAL COURSE: The patient is a pleasant 83-year-old female who presented with chest pain. She was admitted. We consulted Cardiology. We did serial enzymes, serial EKGs. She was taken for cardiac catheterization and received one new stent. Post-procedure, she did well. We discharged to home with close outpatient followup. DISPOSITION: Home. ACTIVITY: As tolerated. DIET: Cardiac. MEDICATIONS: Please see MRAD. TOTAL TIME: 31 minutes. MICHAEL SOLIZ DO DR: JOSEE/patrice JOB#: [id number] / [id number]
[2019-08-26] MEDS ORDERED: ALBU2.5V8 IH (21:26)
== END 2019-07-22 15:53 | disposition home health service (06) | DRG 248 ==
LOC: ER 22:48 → 1 WEST ICU 23:00 → 2 NORTH 07-20 16:18
PROVIDERS: ADMIT Internal Medicine; ATTEND Internal Medicine
PROC: 02703DZ Dilation of Coronary Artery, One Artery with Intraluminal Device, Percutaneous Approach (ICD-10-PCS; principal; 2019-07-20)
PROC: 4A023N7 Measurement of Cardiac Sampling and Pressure, Left Heart, Percutaneous Approach (ICD-10-PCS; 2019-07-20)
PROC: B2111ZZ Fluoroscopy of Multiple Coronary Arteries using Low Osmolar Contrast (ICD-10-PCS; 2019-07-20)
DX: I21.3 ST elevation (STEMI) myocardial infarction of unspecified site (principal); I50.33 Acute on chronic diastolic (congestive) heart failure; D50.9 Iron deficiency anemia, unspecified; E11.9 Type 2 diabetes mellitus without complications; E78.00 Pure hypercholesterolemia, unspecified; E78.5 Hyperlipidemia, unspecified; E83.42 Hypomagnesemia; E87.6 Hypokalemia; F41.9 Anxiety disorder, unspecified; E89.0 Postprocedural hypothyroidism; F17.210 Nicotine dependence, cigarettes, uncomplicated; F32.9 Major depressive disorder, single episode, unspecified; I11.0 Hypertensive heart disease with heart failure; I25.10 Atherosclerotic heart disease of native coronary artery without angina pectoris; J44.9 Chronic obstructive pulmonary disease, unspecified; Z79.02 Long term (current) use of antithrombotics/antiplatelets; Z79.82 Long term (current) use of aspirin; Z82.49 Family history of ischemic heart disease and other diseases of the circulatory system; Z98.61 Coronary angioplasty status; Z90.710 Acquired absence of both cervix and uterus
CPT/HCPCS: 92928; 93458; G0269; 36415; 71045; 80048; 80053; 80061; 82553; 83540; 83550; 83690; 83735; 83880; 84443; 84484; 85007; 85025; 85610; 85730; 93005; 93306; 96374; 96375; 99406; C1725; C1760; C1769; C1876; C1887; C1892; J0583; J1644; J1940; J3010; J3475; J3490; J7030; Q9967; 97116; 97535; 99285-25; C1771; G0378

== ENCOUNTER → 2019-08-14 | Outpatient (CLI) | payer OTHER ==
[2019-07-22 14:19] VITALS: BP 139/62
[~2019-08-14] MED LIST changes: +ALBU2.5V8 IH; +ASPI325T11 PO; +ATOR20TA58 PO; +CLOP75TA PO; +IOHEXOL 300 MG/ML 100ML VIAL. IV ONE; +LISI-338 PO; +METO25TA4 PO
--- NOTE | 2019-08-14 17:15 | RAD ---
CT CHEST W/CONTRAST Indication: Pneumonia Technique: Postcontrast CT imaging was performed of the chest, multiplanar reconstruction images submitted. One or more of the following individualized dose reduction techniques were utilized for this examination: 1. Automated exposure control 2. Adjustment of the mA and/or kV according to patient size 3. Use of iterative reconstruction technique. Comparison: July 13, 2015 chest CTA and July 19, 2019 chest radiograph Findings: There is approximate 3.6 m transverse by 1.7 cm AP by approximately at 2.8 cm CC noncalcified irregular density of the right upper lobe with spiculated margin. There is a separate more medial right upper lobe noncalcified focus of density on the order of 1.1 cm transverse by 1.3 cm AP by about 1.1 cm CC also with irregular margins. There is also focus of irregular noncalcified right lower lobe density on the order of about 1.1 cm in size image 25. There is focus of noncalcified density of the left upper lobe about 2 cm AP by about 1.2 cm transverse by 1.2 cm CC. There are somewhat prominent mediastinal nodes although in part present previously. Pretracheal node measures about 1.4 cm short axis dimension, previously about 1.2 cm. There is now anterior mediastinal node about 0.7 cm short axis dimension versus previously about 0.4 cm. There is coronary calcification. Heart is somewhat enlarged. There is no pericardial or pleural fluid or pneumothorax. There is moderate to severe emphysema. IMPRESSION: 1. There are foci of abnormal irregular, noncalcified, somewhat spiculated foci of density of the hemithoraces bilaterally greater on the right. Concern would be for malignancy until proven otherwise for which PET CT and biopsy is advised. 2. There is emphysema. 3. There is nonspecific mediastinal lymphadenopathy somewhat greater than 2015 exam. 4. There is coronary calcification. Electronically signed by: Wilmar Mac MD (08/14/2019 5:12 PM) [id number]
== END | disposition home or self-care (01) ==
LOC: CT 14:21
PROVIDERS: ATTEND Nurse Practitioner
DX: J43.9 Emphysema, unspecified (principal); R59.0 Localized enlarged lymph nodes; I25.10 Atherosclerotic heart disease of native coronary artery without angina pectoris; I10 Essential (primary) hypertension; E11.9 Type 2 diabetes mellitus without complications; F17.200 Nicotine dependence, unspecified, uncomplicated; Z87.01 Personal history of pneumonia (recurrent); Z95.828 Presence of other vascular implants and grafts
CPT/HCPCS: 71260; Q9967

== ENCOUNTER 2019-10-30 22:16 | Emergency (ER) | payer SELFPAY ==
[~2019-10-30] VITALS: Ht 152.4 cm; Wt 59.0 kg
[~2019-10-30 22:16] MED LIST changes: +AMLO5TAB10 PO; +CLON0.2T10 PO; +FERR325T72 PO; -IOHEXOL 300 MG/ML 100ML VIAL. IV ONE; +IPRA3AMP29 NEB; +PANT40TA77 PO
--- NOTE | 2019-10-30 23:15 | PHYS DOC ---
Past Medical History Past Medical History: COPD, High Cholesterol, Hypertension Past Surgical History: Hysterectomy, Other Additional Past Surgical Histo: Thyroidectomy 1992 Alcohol Use: None Drug Use: None Adult General Chief Complaint Chief Complaint: ANXIETY/PANIC ATTACK HPI HPI Patient is a 84 year old female with history of COPD, hypertension, high cholesterol, who presents today from home with complaints of numbness to her face on bilateral hands that has been going on for 2-3 days. Patient denies any exacerbating or relieving factors to her symptoms. Patient denies any fever, coughing, congestion, headache. Review of Systems Review of Systems Constitutional: Denies fever or chills [] Eyes: Denies change in visual acuity, redness, or eye pain [] HENT: Denies nasal congestion or sore throat [] Respiratory: Denies cough or shortness of breath [] Cardiovascular: No additional information not addressed in HPI [] GI: Denies abdominal pain, nausea, vomiting, bloody stools or diarrhea [] : Denies dysuria or hematuria [] Musculoskeletal: Denies back pain or joint pain [] Integument: Denies rash or skin lesions [] Neurologic: Reports numbness to the face bilaterally as well as hands. Denies headache, focal weakness or sensory changes [] All other systems were reviewed and found to be within normal limits, except as documented in this note. Allergies Allergies Allergies Coded Allergies Type Severity Reaction Last Updated Verified naproxen Allergy Intermediate 08/27/19 Yes Physical Exam Physical Exam Constitutional: Well developed, well nourished, no acute distress, non-toxic appearance. [] HENT: Normocephalic, atraumatic, bilateral external ears normal, oropharynx moist, no oral exudates, nose normal. [] Eyes: PERRLA, EOMI, conjunctiva normal, no discharge. [] Neck: Normal range of motion, no tenderness, supple, no stridor. [] Cardiovascular:Heart rate regular rhythm, no murmur [] Lungs & Thorax: Bilateral breath sounds clear to auscultation [] Abdomen: Bowel sounds normal, soft, no tenderness, no masses, no pulsatile masses. [] Skin: Warm, dry, no erythema, no rash. [] Back: No tenderness, no CVA tenderness. [] Extremities: No tenderness, no cyanosis, no clubbing, ROM intact, no edema. [] Neurologic: Alert and oriented X 3, normal motor function, normal sensory function, no focal deficits noted. Cranial nerves II through XII intact Psychologic: Affect normal, judgement normal, mood normal. [] Current Patient Data Vital Signs Vital Signs Date Time Temp Pulse Resp B/P (MAP) Pulse Ox O2 Delivery O2 Flow Rate FiO2 10/31/19 00:43 52 20 173/79 (110) 94 Room Air 10/30/19 22:22 98.1 98.1 Lab Values Laboratory Tests Test 10/31/19 00:10 White Blood Count 5.5 x10^3/uL (4.0-11.0) Red Blood Count 5.34 x10^6/uL (3.50-5.40) Hemoglobin 12.6 g/dL (12.0-15.5) Hematocrit 40.0 % (36.0-47.0) Mean Corpuscular Volume 75 fL (79-100) L Mean Corpuscular Hemoglobin 24 pg (25-35) L Mean Corpuscular Hemoglobin Concent 31 g/dL (31-37) Red Cell Distribution Width 29.3 % (11.5-14.5) H Platelet Count 240 x10^3/uL (140-400) Neutrophils (%) (Auto) 54 % (31-73) Lymphocytes (%) (Auto) 25 % (24-48) Monocytes (%) (Auto) 10 % (0-9) H Eosinophils (%) (Auto) 11 % (0-3) H Basophils (%) (Auto) 1 % (0-3) Neutrophils # (Auto) 3.0 x10^3/uL (1.8-7.7) Lymphocytes # (Auto) 1.4 x10^3/uL (1.0-4.8) Monocytes # (Auto) 0.5 x10^3/uL (0.0-1.1) Eosinophils # (Auto) 0.6 x10^3/uL (0.0-0.7) Basophils # (Auto) 0.0 x10^3/uL (0.0-0.2) Platelet Estimate Pending Sodium Level 141 mmol/L (136-145) Potassium Level 3.4 mmol/L (3.5-5.1) L Chloride Level 102 mmol/L (98-107) Carbon Dioxide Level 29 mmol/L (21-32) Anion Gap 10 (6-14) Blood Urea Nitrogen 12 mg/dL (7-20) Creatinine 0.9 mg/dL (0.6-1.0) Estimated GFR (Cockcroft-Gault) 72.0 BUN/Creatinine Ratio 13 (6-20) Glucose Level 114 mg/dL (70-99) H Calcium Level 9.0 mg/dL (8.5-10.1) Magnesium Level 1.4 mg/dL (1.8-2.4) L Total Bilirubin 0.4 mg/dL (0.2-1.0) Aspartate Amino Transferase (AST) 21 U/L (15-37) Alanine Aminotransferase (ALT) 14 U/L (14-59) Alkaline Phosphatase 128 U/L (46-116) H Creatine Kinase 45 U/L (26-192) Creatine Kinase MB (Mass) 1.8 ng/mL (0.0-3.6) Creatine Kinase MB Relative Index % (0-4) Troponin I Quantitative 0.017 ng/mL (0.000-0.055) VE-Msi-I-Type Natriuretic Peptide 2924 pg/mL (0-449) H Total Protein 7.5 g/dL (6.4-8.2) Albumin 3.3 g/dL (3.4-5.0) L Albumin/Globulin Ratio 0.8 (1.0-1.7) L Thyroid Stimulating Hormone (TSH) 1.623 uIU/mL (0.358-3.74) Laboratory Tests 10/31/19 00:10 Laboratory Tests 10/31/19 00:10 EKG EKG [address] Tierney sinus rhythm HR 51 no STEMI[] Radiology/Procedures Radiology/Procedures []PROCEDURE: PORTABLE CHEST 1V Chest AP portable at 2247: Reason for examination: Numbness. Comparison is made to previous study dated 09/21/2019. The heart size is normal. Mediastinum is unremarkable. Lung harrison continue show some increased interstitial markings at the right lung base without interval change. No pleural effusions are seen. No acute bony abnormalities are seen. Impression: Increased right basilar markings without significant change. CT head without contrast: Axial images were obtained through the brain. No contrast was administered. Reconstruction was performed in coronal plane. Exposure: One or more of the following individualized dose reduction techniques were utilized for this examination: 1. Automated exposure control 2. Adjustment of the mA and/or kV according to patient size 3. Use of iterative reconstruction technique. Ventricular systems are symmetric and not abnormally dilated. No midline shift is seen. No intracranial hemorrhage, infarct, mass or edema is seen. No abnormalities of seen at the orbits. The paranasal sinuses and mastoid air cells are clear. No acute abnormality seen in the skull. IMPRESSION: No acute intracranial abnormality evident. Electronically signed by: Teri Zamora MD (10/30/2019 11:37 PM) [facility] DICTATED and SIGNED BY: TERI ZAMORA MD DATE: 10/30/192336 PROCEDURE: CT HEAD WO CONTRAST Chest AP portable at 2247: Reason for examination: Numbness. Comparison is made to previous study dated 09/21/2019. The heart size is normal. Mediastinum is unremarkable. Lung harrison continue show some increased interstitial markings at the right lung base without interval change. No pleural effusions are seen. No acute bony abnormalities are seen. Impression: Increased right basilar markings without significant change. CT head without contrast: Axial images were obtained through the brain. No contrast was administered. Reconstruction was performed in coronal plane. Exposure: One or more of the following individualized dose reduction techniques were utilized for this examination: 1. Automated exposure control 2. Adjustment of the mA and/or kV according to patient size 3. Use of iterative reconstruction technique. Ventricular systems are symmetric and not abnormally dilated. No midline shift is seen. No intracranial hemorrhage, infarct, mass or edema is seen. No abnormalities of seen at the orbits. The paranasal sinuses and mastoid air cells are clear. No acute abnormality seen in the skull. IMPRESSION: No acute intracranial abnormality evident. Electronically signed by: Teri Zamora MD (10/30/2019 11:37 PM) [facility] DICTATED and SIGNED BY: TERI ZAMORA MD DATE: 10/30/192336 Course & Med Decision Making Course & Med Decision Making Pertinent Labs and Imaging studies reviewed. (See chart for details) This is a 84-year-old female patient presenting to the ED today with complaints of numbness to bilateral hands and face for 2-3 days. Stroke scale is negative. Chest x-ray is negative, CT of the head is negative. CBC is negative for any acute findings. CMP with magnesium of 1.4 given mag in the Ed. D/c to home F/u with PCP next week Farhana Disclaimer Aflredoon Disclaimer This electronic medical record was generated, in whole or in part, using a voice recognition dictation system. NIHSS Stroke Scale NIH Stroke Scale: NIH Stroke Scale Response (Comments) Value Level of Consciousness: 0 Alert/Responsive 0 LOC Questions: 0 Answers both correctly 0 Best Gaze: 0 Normal 0 Facial Palsy: 0 Normal, symmetrical 0 Motor - Left Arm 0 No drift 0 Motor - Right Arm 0 No drift 0 Motor - Left Leg 0 No drift 0 Motor: Right Leg 0 No drift 0 Limb Ataxia: 0 Absent 0 Best Language: 0 Normal 0 Dysathria: 0 Normal 0 Extinction and Inattention: 0 Normal 0 Total 0 Departure Departure Impression: Primary Impression: Paresthesia of upper extremity Additional Impression: Hypomagnesemia Disposition: 01 HOME, SELF-CARE Condition: STABLE Referrals: ARACELI BACA MD (PCP) Please follow up with your doctor next week Patient Instructions: Paresthesia, [id number] Additional Instructions: Your work up in the ER was negative for any acute findings. Please follow up with your doctor next week. Problem Qualifiers ERNST MCKEON APRN Oct 30, 2019 23:15
--- NOTE | 2019-10-30 23:40 | RAD ---
Chest AP portable at 2247: Reason for examination: Numbness. Comparison is made to previous study dated 09/21/2019. The heart size is normal. Mediastinum is unremarkable. Lung harrison continue show some increased interstitial markings at the right lung base without interval change. No pleural effusions are seen. No acute bony abnormalities are seen. Impression: Increased right basilar markings without significant change. CT head without contrast: Axial images were obtained through the brain. No contrast was administered. Reconstruction was performed in coronal plane. Exposure: One or more of the following individualized dose reduction techniques were utilized for this examination: 1. Automated exposure control 2. Adjustment of the mA and/or kV according to patient size 3. Use of iterative reconstruction technique. Ventricular systems are symmetric and not abnormally dilated. No midline shift is seen. No intracranial hemorrhage, infarct, mass or edema is seen. No abnormalities of seen at the orbits. The paranasal sinuses and mastoid air cells are clear. No acute abnormality seen in the skull. IMPRESSION: No acute intracranial abnormality evident. Electronically signed by: Teri Jones MD (10/30/2019 11:37 PM) [facility]
[2019-10-31 00:22] LABS: BASO % 1 % (0-3); EOS # 0.6 x10^3/uL (0.0-0.7); EOS % 11 % (0-3); HEMOGLOBIN 12.6 g/dL (12.0-15.5); LYMPH # 1.4 x10^3/uL (1.0-4.8); LYMPH % 25 % (24-48); MEAN CORPUSCULAR HEMOGLOBIN 24 pg (25-35); MEAN CORPUSCULAR HGB CONC 31 g/dL (31-37); MEAN CORPUSCULAR VOLUME 75 fL (79-100); MONO # 0.5 x10^3/uL (0.0-1.1); MONO % 10 % (0-9); NEUT % 54 % (31-73); PLATELET COUNT 240 x10^3/uL (140-400); RED BLOOD COUNT 5.34 x10^6/uL (3.50-5.40); RED CELL DISTRIBUTION WIDTH 29.3 % (11.5-14.5); WHITE BLOOD COUNT 5.5 x10^3/uL (4.0-11.0)
[2019-10-31 00:37] LABS: CREATININE 0.9 mg/dL (0.6-1.0); POTASSIUM 3.4 mmol/L (3.5-5.1)
[2019-10-31 00:43] LABS: ALBUMIN 3.3 g/dL (3.4-5.0); ALBUMIN/GLOBULIN RATIO 0.8 (1.0-1.7); MAGNESIUM 1.4 mg/dL (1.8-2.4); TOTAL BILIRUBIN 0.4 mg/dL (0.2-1.0); TOTAL PROTEIN 7.5 g/dL (6.4-8.2)
[2019-10-31 00:52] LABS: CREATINE KINASE 45 U/L (26-192)
[2019-10-31] MEDS ORDERED: MAGNESIUM SULFATE 1GM 100 ML IV ONE (01:00)
[2019-10-31 01:04] LABS: PROTHROMBIN TIME PATIENT 15.2 SEC (11.7-14.0)
[2019-10-31 01:19] VITALS: BP 155/66
[2019-10-31] MEDS ORDERED: MAGNESIUM OXIDE 400 MG TABLET PO ONE (01:30)
[2019-10-31 02:38] LABS: ANISOCYTOSIS MARKED; MICROCYTOSIS SLIGHT; OVALOCYTES OCC; PLT ESTIMATE ADEQUATE (ADEQUATE); TARGET CELLS OCC
[2019-10-31 02:39] LABS: SCHISTOCYTES OCC
--- NOTE | 2019-11-01 09:05 | EKG ---
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
== END 2019-10-31 01:45 | disposition home or self-care (01) ==
LOC: ER 22:16
DX: R20.2 Paresthesia of skin (principal); E83.42 Hypomagnesemia; J44.9 Chronic obstructive pulmonary disease, unspecified; I10 Essential (primary) hypertension; E78.00 Pure hypercholesterolemia, unspecified; Z88.6 Allergy status to analgesic agent
CPT/HCPCS: 36415; 70450; 71045; 80053; 82553; 83735; 83880; 84443; 84484; 85025; 85610; 93005; 99285

== ENCOUNTER 2020-06-26 11:58 | Emergency (ER) | payer MEDICARE ==
[~2020-06-26] VITALS: Ht 160 cm; Wt 70.0 kg
[2020-06-26] MEDS ORDERED: DEXAMETHASONE SOD PHOS 4 MG/ML VIAL IVP ONE (12:30)
[2020-06-26] MEDS ORDERED: IPRATRPIUM/ALBUTEROL 0.5/2.5MG 3 ML NEBU. NEB ONE ×2 (12:30→14:00)
[2020-06-26 12:36] LABS: BASO # 0.1 x10^3/uL (0.0-0.2); BASO % 1 % (0-3); EOS # 0.1 x10^3/uL (0.0-0.7); EOS % 1 % (0-3); HEMOGLOBIN 14.7 g/dL (12.0-15.5); LYMPH # 1.6 x10^3/uL (1.0-4.8); LYMPH % 26 % (24-48); MEAN CORPUSCULAR HEMOGLOBIN 30 pg (25-35); MEAN CORPUSCULAR HGB CONC 33 g/dL (31-37); MEAN CORPUSCULAR VOLUME 90 fL (79-100); MONO # 0.6 x10^3/uL (0.0-1.1); MONO % 9 % (0-9); NEUT # 3.9 x10^3/uL (1.8-7.7); NEUT % 63 % (31-73); PLATELET COUNT 275 x10^3/uL (140-400); RED BLOOD COUNT 4.89 x10^6/uL (3.50-5.40); WHITE BLOOD COUNT 6.2 x10^3/uL (4.0-11.0)
[2020-06-26 12:46] LABS: CALCIUM 9.1 mg/dL (8.5-10.1); CREATININE 1.4 mg/dL (0.6-1.0); GFR 43.2; POTASSIUM 3.2 mmol/L (3.5-5.1)
[2020-06-26 12:52] LABS: ALBUMIN 3.6 g/dL (3.4-5.0); ALBUMIN/GLOBULIN RATIO 0.8 (1.0-1.7); C-REACTIVE PROTEIN 34.6 mg/L (0-3.3); TOTAL BILIRUBIN 0.4 mg/dL (0.2-1.0); TOTAL PROTEIN 7.9 g/dL (6.4-8.2)
--- NOTE | 2020-06-26 13:19 | PHYS DOC ---
Past Medical History Past Medical History: COPD, High Cholesterol, Hypertension, [place] Past Surgical History: Hysterectomy, Other Additional Past Surgical Histo: Thyroidectomy 1992, cardiac stent Smoking Status: Current Some Day Smoker Alcohol Use: None Drug Use: None General Adult EDM: Chief Complaint: SHORTNESS OF BREATH HPI: HPI: Patient is an 84-year-old female with past medical history of COPD who presents to the emergency room complaining of shortness of breath that started a few days ago and has persisted gotten worse. She has increasing wheezing and has the occasional cough without production. She denies any fever. She does not have any URI symptoms. This is similar to COPD exacerbations in the past. She has no concerns for COVID-19. She denies any abdominal pain. She denies any chest pain. Patient received 2 DuoNeb treatments prior to arrival Review of Systems: Review of Systems: General: Denies fever, chills, sweats, fatigue Eyes: Denies drainage, blurred vision, eye redness HENT: Denies rhinorrhea, sore throat, earache Respiratory: Reports cough, shortness of breath, wheezing Cardiac: Denies edema, palpitations, chest pain GI: Denies abdominal pain, Nausea, vomiting MSK: Denies back pain, neck pain Skin: Denies rash, jaundice Neuro: Denies headache, dizziness Psychiatric: Denies SI/HI Heart Score: Risk Factors: Risk Factors: DM, Current or recent (<one month) smoker, HTN, HLP, family history of CAD, obesity. Risk Scores: Score 0 - 3: 2.5% MACE over next 6 weeks - Discharge Home Score 4 - 6: 20.3% MACE over next 6 weeks - Admit for Clinical Observation Score 7 - 10: 72.7% MACE over next 6 weeks - Early Invasive Strategies Current Medications: Current Medications Medications (Trade) Dose Ordered Sig/Liyah Start Time Stop Time Status Last Admin Dose Admin Albuterol/ Ipratropium (Duoneb) 3 ml 1X ONCE 06/26/20 12:30 06/26/20 12:31 DC 06/26/20 12:26 3 ML Dexamethasone Sodium Phosphate (Decadron) 10 mg 1X ONCE 06/26/20 12:30 06/26/20 12:31 DC 06/26/20 12:43 10 MG Allergies: Allergies: Allergies Coded Allergies Type Severity Reaction Last Updated Verified naproxen Allergy Intermediate 08/27/19 Yes Physical Exam: PE: General: Awake, alert, NAD. Well Nourished, well hydrated. Cooperative HEENT: Atraumatic, EOMI, PERRL, airway patent, moist oral mucosa Neck: Supple, trachea midline Respiratory: CTA bilaterally, normal effort, diffuse wheezing CV: RRR, no murmur, cap refill <2 GI: Soft, nondistended, nontender, no masses MSK: No obvious deformities Skin: Warm, dry, intact Neuro: A&O x3, speech NL, sensory and motor grossly intact, no focal deficits Psych: Normal affect, normal mood, not suicidal or homicidal Current Patient Data: Labs: Laboratory Tests Test 06/26/20 12:14 White Blood Count 6.2 x10^3/uL (4.0-11.0) Red Blood Count 4.89 x10^6/uL (3.50-5.40) Hemoglobin 14.7 g/dL (12.0-15.5) Hematocrit 44.0 % (36.0-47.0) Mean Corpuscular Volume 90 fL (79-100) Mean Corpuscular Hemoglobin 30 pg (25-35) Mean Corpuscular Hemoglobin Concent 33 g/dL (31-37) Red Cell Distribution Width 14.0 % (11.5-14.5) Platelet Count 275 x10^3/uL (140-400) Neutrophils (%) (Auto) 63 % (31-73) Lymphocytes (%) (Auto) 26 % (24-48) Monocytes (%) (Auto) 9 % (0-9) Eosinophils (%) (Auto) 1 % (0-3) Basophils (%) (Auto) 1 % (0-3) Neutrophils # (Auto) 3.9 x10^3/uL (1.8-7.7) Lymphocytes # (Auto) 1.6 x10^3/uL (1.0-4.8) Monocytes # (Auto) 0.6 x10^3/uL (0.0-1.1) Eosinophils # (Auto) 0.1 x10^3/uL (0.0-0.7) Basophils # (Auto) 0.1 x10^3/uL (0.0-0.2) Sodium Level 142 mmol/L (136-145) Potassium Level 3.2 mmol/L (3.5-5.1) L Chloride Level 102 mmol/L (98-107) Carbon Dioxide Level 31 mmol/L (21-32) Anion Gap 9 (6-14) Blood Urea Nitrogen 12 mg/dL (7-20) Creatinine 1.4 mg/dL (0.6-1.0) H Estimated GFR (Cockcroft-Gault) 43.2 BUN/Creatinine Ratio 9 (6-20) Glucose Level 149 mg/dL (70-99) H Calcium Level 9.1 mg/dL (8.5-10.1) Total Bilirubin 0.4 mg/dL (0.2-1.0) Aspartate Amino Transferase (AST) 24 U/L (15-37) Alanine Aminotransferase (ALT) 25 U/L (14-59) Alkaline Phosphatase 130 U/L (46-116) H Troponin I Quantitative < 0.017 ng/mL (0.000-0.055) C-Reactive Protein, Quantitative 34.6 mg/L (0-3.3) H GS-Aha-R-Type Natriuretic Peptide 1788 pg/mL (0-449) H Total Protein 7.9 g/dL (6.4-8.2) Albumin 3.6 g/dL (3.4-5.0) Albumin/Globulin Ratio 0.8 (1.0-1.7) L Ethyl Alcohol Level < 10 mg/dL (0-10) Laboratory Tests 06/26/20 12:14 Laboratory Tests 06/26/20 12:14 Vital Signs: Vital Signs Date Time Temp Pulse Resp B/P (MAP) Pulse Ox O2 Delivery O2 Flow Rate FiO2 06/26/20 12:30 94 Room Air 06/26/20 11:58 98.4 77 24 126/74 (91) 98.4 EKG: EKG: [] Radiology/Procedures: Radiology/Procedures: [] Course & Med Decision Making: Course & Med Decision Making Pertinent Labs and Imaging studies reviewed. (See chart for details) Patient 84-year-old female who presents to the emergency room complaining of wheezing, cough, shortness of breath. Patient's presentation is consistent with COPD exacerbation. This is similar to episode she has had in the past. Patient has not had any fever, URI symptoms, fatigue, or COVID exposures. She was given a DuoNeb treatment here in the emergency room. She will be given Decadron and labs will be ordered. Patient is feeling significantly better and would like to go home. She will be discharged home on prednisone. Patient's test results and vitals while in the ED were fully reviewed and discussed with the patient. Patient is stable and at this time does not need admission to the hospital. We have discussed strict return precautions and the importance of following up with their Primary Care Physician. Patient stated understanding and was given an opportunity to ask any questions. Patient is in agreement with plan. Dragon Disclaimer: Dragon Disclaimer: This electronic medical record was generated, in whole or in part, using a voice recognition dictation system. Departure Departure Impression: Primary Impression: COPD exacerbation Disposition: HOME, SELF-CARE Condition: STABLE Referrals: ARACELI BACA MD (PCP) Patient Instructions: Chronic Obstructive Pulmonary Disease Exacerbation, [id number] Scripts Prednisone (PREDNISONE) 50 Mg Tablet 1 TAB PO DAILY, #5 TAB Prov: MACKENZIE ALVAREZ MD 06/26/20 Justicifation of Admission Dx: Justifications for Admission: Justification of Admission Dx: N/A MACKENZIE ALVAREZ MD Jun 26, 2020 13:19
--- NOTE | 2020-06-26 13:24 | RAD ---
EXAM: Chest, single view. HISTORY: Shortness of breath. COMPARISON: 10/30/2011 FINDINGS: A frontal view of the chest is obtained. There is stable diffuse increased interstitial opacity. There is nodular opacity overlying the right lower lobe which this is not typical in location for a nipple shadow. There is no consolidation, protrusion or pneumothorax. The heart is normal in size. IMPRESSION: 1. Diffuse increased interstitial opacity due to interstitial infiltrate or chronic interstitial changes. 2. Small nodular opacity overlying the right lower lobe. Short-term radiographic follow-up is recommended to exclude a noncalcified nodule or nodular infiltrate in this location. Electronically signed by: Sarah Jhaveri MD (06/26/2020 1:21 PM) [id number]
[2020-06-26] MEDS ORDERED: PRED50TA PO (14:36)
[2020-06-26 15:28] VITALS: BP 120/80
--- NOTE | 2020-06-27 08:54 | EKG ---
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
== END 2020-06-26 15:32 | disposition home or self-care (01) ==
LOC: ER 11:58
DX: J44.1 Chronic obstructive pulmonary disease with (acute) exacerbation (principal); R06.02 Shortness of breath; R05 Cough; R06.2 Wheezing; J44.9 Chronic obstructive pulmonary disease, unspecified; E78.00 Pure hypercholesterolemia, unspecified; I10 Essential (primary) hypertension; I25.2 Old myocardial infarction; Z90.710 Acquired absence of both cervix and uterus; Z90.89 Acquired absence of other organs; Z87.891 Personal history of nicotine dependence; Z88.6 Allergy status to analgesic agent
CPT/HCPCS: 36415; 71045; 80053; 83880; 84484; 85025; 86140; 93005; 94640; 96374; 99285; G0480; J1100

== ENCOUNTER 2020-12-23 14:41 | Emergency (ER) | payer MEDICARE ==
[~2020-12-23] VITALS: Ht 152.4 cm; Wt 62.0 kg
[~2020-12-23 14:41] MED LIST changes: +AMLO-186 PO; -AMLO5TAB10 PO; -LISI-338 PO; +LISI-517 PO; +SERT-267 PO; -SERT50TA8 PO
[2020-12-23 15:39] LABS: BASO % 1 % (0-3); EOS # 0.2 x10^3/uL (0.0-0.7); EOS % 3 % (0-3); HEMOGLOBIN 12.3 g/dL (12.0-15.5); LYMPH % 17 % (24-48); MEAN CORPUSCULAR HEMOGLOBIN 29 pg (25-35); MEAN CORPUSCULAR HGB CONC 33 g/dL (31-37); MEAN CORPUSCULAR VOLUME 88 fL (79-100); MONO # 0.6 x10^3/uL (0.0-1.1); MONO % 10 % (0-9); NEUT # 4.1 x10^3/uL (1.8-7.7); NEUT % 70 % (31-73); PLATELET COUNT 216 x10^3/uL (140-400); RED BLOOD COUNT 4.21 x10^6/uL (3.50-5.40); RED CELL DISTRIBUTION WIDTH 16.3 % (11.5-14.5); WHITE BLOOD COUNT 5.9 x10^3/uL (4.0-11.0)
--- NOTE | 2020-12-23 15:40 | RAD ---
XR CHEST 1V History: Reason: sob / Spl. Instructions: / History: Comparison: June 26, 2020 Findings: Patchy bibasilar opacities. No pleural effusion. No pneumothorax. Unchanged heart size. Lateral humer al DJD. Previously seen right lower lung nodular opacity is obscured by patchy opacities. Impression: 1. Patchy bibasilar opacities, may represent atelectasis or developing consolidations. Recommend fol low-up. Electronically signed by: Siva Zhou DO (12/23/2020 3:37 PM) [facility]
[2020-12-23 15:51] LABS: CALCIUM 8.3 mg/dL (8.5-10.1); CREATININE 1.1 mg/dL (0.6-1.0); POTASSIUM 3.6 mmol/L (3.5-5.1)
[2020-12-23 15:55] LABS: ALBUMIN 3.2 g/dL (3.4-5.0); ALBUMIN/GLOBULIN RATIO 0.8 (1.0-1.7); TOTAL BILIRUBIN 0.4 mg/dL (0.2-1.0); TOTAL PROTEIN 7.4 g/dL (6.4-8.2)
[2020-12-23] MEDS ORDERED: VENTOLIN HFA18 GM INH (16:53)
[2020-12-23] MEDS ORDERED: PRED50TA PO (16:53)
[2020-12-23] MEDS ORDERED: FURO-69 PO (16:53)
--- NOTE | 2020-12-23 16:55 | ED.ADGEN ---
Past Medical History Past Medical History: COPD, High Cholesterol, Hypertension, [place] Past Surgical History: Hysterectomy, Other Additional Past Surgical Histo: Thyroidectomy 1992, cardiac stent Smoking Status: Current Every Day Smoker Additional Information: 10/15 PPD Alcohol Use: None Drug Use: None General Adult EDM: Chief Complaint: SHORTNESS OF BREATH HPI: HPI: Patient is an 85-year-old female with past medical history of emphysema and congestive heart failure who presents to the emergency room per primary care physician's office for hypoxia. According to the patient she had a pulse ox of 89% so she was sent here for evaluation. Patient states that she has been short of breath for the last few days. She has noticed some wheezing and some sw elling in her feet. She denies any kind of cough or fever. She has not had any URI symptoms. Shortness of breath is when she is up walking around. This is similar to previous episodes she has had. Review of Systems: Review of Systems: Complete ROS is negative unless otherwise documented in HPI Current Medications: Current Medications Medications (Trade) Dose Ordered Sig/Liyah Start Time Stop Time Status Last Admin Dose Admin Furosemide (Lasix) 40 mg 1X ONCE 12/23/20 16:30 12/23/20 16:31 DC Allergies: Allergies: Allergies Coded Allergies Type Severity Reaction Last Updated Verified naproxen Allergy Intermediate 08/27/19 Yes Physical Exam: PE: General: Awake, alert, NAD. Well Nourished, well hydrated. Cooperative HEENT: Atraumatic, EOMI, PERRL, airway patent, moist oral mucosa Neck: Supple, trachea midline Respiratory: Normal effort, decreased breath sounds bilaterally, minimal wheezing CV: RRR, no murmur, cap refill <2, 1+ pitting edema bilateral ankles GI: Soft, nondistended, nontender, no masses MSK: No obvious deformities Skin: Warm, dry, intact Neuro: A&O x3, speech NL, sensory and motor grossly intact, no focal deficits Psych: Normal affect, normal mood, not suicidal or homicidal Current Patient Data: Labs: Laboratory Tests Test 12/23/20 15:29 White Blood Count 5.9 x10^3/uL (4.0-11.0) Red Blood Count 4.21 x10^6/uL (3.50-5.40) Hemoglobin 12.3 g/dL (12.0-15.5) Hematocrit 37.0 % (36.0-47.0) Mean Corpuscular Volume 88 fL (79-100) Mean Corpuscular Hemoglobin 29 pg (25-35) Mean Corpuscular Hemoglobin Concent 33 g/dL (31-37) Red Cell Distribution Width 16.3 % (11.5-14.5) H Platelet Count 216 x10^3/uL (140-400) Neutrophils (%) (Auto) 70 % (31-73) Lymphocytes (%) (Auto) 17 % (24-48) L Monocytes (%) (Auto) 10 % (0-9) H Eosinophils (%) (Auto) 3 % (0-3) Basophils (%) (Auto) 1 % (0-3) Neutrophils # (Auto) 4.1 x10^3/uL (1.8-7.7) Lymphocytes # (Auto) 1.0 x10^3/uL (1.0-4.8) Monocytes # (Auto) 0.6 x10^3/uL (0.0-1.1) Eosinophils # (Auto) 0.2 x10^3/uL (0.0-0.7) Basophils # (Auto) 0.0 x10^3/uL (0.0-0.2) Sodium Level 141 mmol/L (136-145) Potassium Level 3.6 mmol/L (3.5-5.1) Chloride Level 104 mmol/L (98-107) Carbon Dioxide Level 27 mmol/L (21-32) Anion Gap 10 (6-14) Blood Urea Nitrogen 9 mg/dL (7-20) Creatinine 1.1 mg/dL (0.6-1.0) H Estimated GFR (Cockcroft-Gault) 57.0 BUN/Creatinine Ratio 8 (6-20) Glucose Level 112 mg/dL (70-99) H Calcium Level 8.3 mg/dL (8.5-10.1) L Total Bilirubin 0.4 mg/dL (0.2-1.0) Aspartate Amino Transferase (AST) 25 U/L (15-37) Alanine Aminotransferase (ALT) 29 U/L (14-59) Alkaline Phosphatase 105 U/L (46-116) Troponin I Quantitative < 0.017 ng/mL (0.000-0.055) IZ-Mvp-E-Type Natriuretic Peptide 1819 pg/mL (0-449) H Total Protein 7.4 g/dL (6.4-8.2) Albumin 3.2 g/dL (3.4-5.0) L Albumin/Globulin Ratio 0.8 (1.0-1.7) L Laboratory Tests 12/23/20 15:29 Laboratory Tests 12/23/20 15:29 Vital Signs: Vital Signs Date Time Temp Pulse Resp B/P (MAP) Pulse Ox O2 Delivery O2 Flow Rate FiO2 12/23/20 15:00 98.4 60 20 167/71 (103) 98 Room Air 98.4 EKG: EKG: [] Heart Score: C/O Chest Pain: N/A Risk Factors: Risk Factors: DM, Current or recent (<one month) smoker, HTN, HLP, family history of CAD, obesity. Risk Scores: Score 0 - 3: 2.5% MACE over next 6 weeks - Discharge Home Score 4 - 6: 20.3% MACE over next 6 weeks - Admit for Clinical Observation Score 7 - 10: 72.7% MACE over next 6 weeks - Early Invasive Strategies Radiology/Procedures: Radiology/Procedures: [] Course & Med Decision Making: Course & Med Decision Making Pertinent Labs and Imaging studies reviewed. (See chart for details) Patient is an 85-year-old female who presents to the emergency room complaining of shortness of breath. Upon arrival to the emergency room patient has a pulse ox of 96%. She does have some minimal swelling. She does have some wheezing and decreased breath sounds. Patient is overall well-appearing. Chest x-ray does show some minimal opacities which could be related to pulmonary edema or possible developing infiltrate. Given the patient has no additional pneumonia signs we will treat her as likely minimal pulmonary edema. Patient would like to go home. She does have a normal pulse ox at this time. Patient was given steroids for her emphysema. She will be given Lasix for her minimal edema here in the emergency room. Patient's test results and vitals while in the ED were fully reviewed and discussed with the patient. Patient is stable and at this time does not need admission to the hospital. We have discussed strict return precautions and the importance of following up with their Primary Care Physician. Patient stated understanding and was given an opportunity to ask any questions. Patient is in agreement with plan. Farhana Disclaimer: Farhana Disclaimer: This electronic medical record was generated, in whole or in part, using a voice recognition dictation system. Departure Departure Impression: Primary Impression: COPD exacerbation Additional Impression: Shortness of breath Disposition: 01 DC HOME SELF CARE/HOMELESS Condition: IMPROVED Referrals: ARACELI BACA MD (PCP) Patient Instructions: Shortness of Breath Scripts Albuterol Sulfate (VENTOLIN HFA INHALER) 18 Gm Hfa.aer.ad 2 PUFF INH QID for FOR ASTHMA, #1 INHALER 0 Refills Prov: MACKENZIE ALVAREZ MD 12/23/20 Prednisone (PREDNISONE) 50 Mg Tablet 1 TAB PO DAILY, #4 TAB Prov: MACKENZIE ALVAREZ MD 12/23/20 Furosemide (LASIX) 20 Mg Tablet 1 TAB PO DAILY for 5 Days, #5 TAB 0 Refills Prov: MACKENZIE ALVAREZ MD 12/23/20 Problem Qualifiers MACKENZIE ALVAREZ MD Dec 23, 2020 16:55
[2020-12-23 16:56] VITALS: BP 139/70
[2020-12-23] MEDS: FUROSEMIDE 40 MG TABLET. PO ONE (17:04)
--- NOTE | 2020-12-23 21:43 | EKG ---
[facility] [address] [place] [address] Test Date: 2020-12-23 Test Time: 15:11:41 Pat Name: SHANTA MONDRAGON Department: Room: Gender: F [employer] Specialist: : [id number] Requested By: MACKENZIE ALVAREZ Order Number: [id number] Reading MD: Measurements Intervals [place] Rate: 57 P: 90 RI: 160 QRS: 54 QRSD: 82 T: 31 QT: 480 QTc: 471 Interpretive Statements SINUS RHYTHM NORMAL ECG RI6.02 No previous ECG available for comparison
== END 2020-12-23 17:49 | disposition home or self-care (01) ==
LOC: ER 14:41
DX: J44.1 Chronic obstructive pulmonary disease with (acute) exacerbation (principal); Z20.822 Contact with and (suspected) exposure to COVID-19; E78.00 Pure hypercholesterolemia, unspecified; I10 Essential (primary) hypertension; I25.2 Old myocardial infarction; F17.200 Nicotine dependence, unspecified, uncomplicated; Z88.5 Allergy status to narcotic agent
CPT/HCPCS: 36415; 71045; 80053; 83880; 84484; 85025; 93005; 99285; C9803; U0003

== ENCOUNTER → 2021-09-21 | Outpatient (CLI) | payer MEDICARE ==
[~2021-09-21] MED LIST changes: +FURO-69 PO; -LISI-517 PO; +LISI5TAB15 PO; -OMEP40CA45 PO; +OMEP40CA7 PO; +VENTOLIN HFA18 GM INH
[2021-09-21 13:21] LABS: BASO % 1 % (0-3); EOS # 0.2 x10^3/uL (0.0-0.7); EOS % 4 % (0-3); HEMATOCRIT 44.4 % (36.0-47.0); HEMOGLOBIN 14.6 g/dL (12.0-15.5); LYMPH # 1.5 x10^3/uL (1.0-4.8); LYMPH % 37 % (24-48); MEAN CORPUSCULAR HEMOGLOBIN 28 pg (25-35); MEAN CORPUSCULAR HGB CONC 33 g/dL (31-37); MEAN CORPUSCULAR VOLUME 85 fL (79-100); MONO # 0.6 x10^3/uL (0.0-1.1); MONO % 14 % (0-9); NEUT # 1.8 x10^3/uL (1.8-7.7); NEUT % 44 % (31-73); PLATELET COUNT 243 x10^3/uL (140-400); RED BLOOD COUNT 5.22 x10^6/uL (3.50-5.40); RED CELL DISTRIBUTION WIDTH 17.4 % (11.5-14.5); WHITE BLOOD COUNT 4.1 x10^3/uL (4.0-11.0)
[2021-09-22 10:50] LABS: CALCIUM 8.9 mg/dL (8.5-10.1); CHOLESTEROL/HDL RATIO 3.1; CREATININE 1.1 mg/dL (0.6-1.0); DIRECT BILIRUBIN 0.2 mg/dL (0.0-0.2); GFR 56.9; MAGNESIUM 1.5 mg/dL (1.8-2.4); TOTAL BILIRUBIN 0.6 mg/dL (0.2-1.0); TOTAL PROTEIN 7.2 g/dL (6.4-8.2)
== END ==
LOC: LAB 12:06
PROVIDERS: ATTEND Internal Medicine Cardiovascular Disease
DX: I25.10 Atherosclerotic heart disease of native coronary artery without angina pectoris (principal); I50.20 Unspecified systolic (congestive) heart failure; E78.5 Hyperlipidemia, unspecified; N17.8 Other acute kidney failure
CPT/HCPCS: 36415; 80048; 80061; 80076; 83735; 85025

== ENCOUNTER → 2021-10-05 | Outpatient (CLI) | payer MEDICARE ==
--- NOTE | 2021-10-05 15:29 | CARD ---
MR#: [id number] Date of Study: 10/05/2021 Ordering Physician: FLORI TIRADO, Referring Physician: FLORI TIRADO, Tech: Lakshmi Watson, [facility] APPROVED REPORT EXAM: Two-dimensional and M-mode echocardiogram with Doppler and color Doppler. Other Information Quality : AverageHR: 69bpm INDICATION COPD Cardiac Disease: CAD RISK FACTORS Hypertension Hyperlipidemia Smoking 2D DIMENSIONS RVDd2.9 (2.9-3.5cm)Left Atrium(2D)3.0 (1.6-4.0cm) IVSd1.0 (0.7-1.1cm)Aortic Root(2D)2.5 (2.0-3.7cm) LVDd3.6 (3.9-5.9cm)LVOT Diameter2.0 (1.8-2.4cm) PWd1.1 (0.7-1.1cm)LVDs2.5 (2.5-4.0cm) FS (%) 30.0 %SV31.9 ml Aortic Valve AoV Peak Arley.125.7cm/sAoV VTI27.5cm AO Peak GR.6.3mmHgLVOT Peak Arley.105.7cm/s LVOT VTI 22.27cmAO Mean GR.3mmHg LATHA (VMAX)2.08nc7MSW (VTI)2.43cm2 Mitral Valve MV E Olhxbqfi49.6cm/sMV DECEL [id number] MV A Aghzdiyz99.1cm/sMV E Mean Gr.1mmHg MV IXS78bhW/A Ratio0.9 MVA (PHT)3.74cm2 TDI E/Lateral E'9.4E/Medial E'11.8 Pulmonary Valve PV Peak Cwpizhmd33.8cm/sPV Peak Grad.3mmHg Tricuspid Valve TR P. Hjkyiuho713yv/sTR Peak Gr.56mmHg Pulmonary Vein PVa [id number] LEFT VENTRICLE The left ventricle is normal size. There is mild concentric left ventricular hypertrophy. The left ve ntricular systolic function is normal and the ejection fraction is within normal range. The Ejection Fraction is 50-55%. There is normal LV segmental wall motion. Transmitral Doppler flow pattern is Gra de II-pseudonormal filling dynamics. RIGHT VENTRICLE The right ventricle is normal size. There is normal right ventricular wall thickness. The right ventr icular systolic function is normal. ATRIA The left atrium size is normal. The right atrium size is normal. The interatrial septum is intact wit h no evidence for an atrial septal defect or patent foramen ovale as noted on 2-D or Doppler imaging. AORTIC VALVE The aortic valve is normal in structure and function. Doppler and Color Flow revealed trace aortic re gurgitation. Calculated aortic valve area is 2.47 cm2 with maximum pressure gradient of 7 mmHg and me an pressure gradient of 4 mmHg. There is no significant aortic valvular stenosis. MITRAL VALVE The mitral valve is normal in structure and function. There is no evidence of mitral valve prolapse. There is no mitral valve stenosis. Doppler and Color-flow revealed trace mitral regurgitation. TRICUSPID VALVE The tricuspid valve is normal in structure and function. Doppler and Color Flow revealed trace to mil d tricuspid regurgitation with an estimated PAP of 59 mmHg. There is no tricuspid valve stenosis. PULMONIC VALVE The pulmonary valve is normal in structure and function. Doppler and Color Flow revealed trace pulmon ic valvular regurgitation. GREAT VESSELS The aortic root is normal in size. The IVC is normal in size and collapses >50% with inspiration. PERICARDIAL EFFUSION There is no evidence of significant pericardial effusion. Critical Notification Critical Value: No <Conclusion> The left ventricle is normal size. The left ventricular systolic function is normal and the ejection fraction is within normal range. The Ejection Fraction is 50-55%. There is normal LV segmental wall motion. There is mild concentric left ventricular hypertrophy. Doppler and Color Flow revealed trace aortic regurgitation. There is no significant aortic valvular stenosis. Doppler and Color-flow revealed trace mitral regurgitation. Doppler and Color Flow revealed trace to mild tricuspid regurgitation with an estimated PAP of 59 mmH g. Signed by : Flori Tirado MD Electronically Approved : 10/05/2021 15:28:46
== END ==
LOC: ECHO 10:47
PROVIDERS: ATTEND Internal Medicine Cardiovascular Disease
DX: I07.1 Rheumatic tricuspid insufficiency (principal); I25.10 Atherosclerotic heart disease of native coronary artery without angina pectoris; J44.9 Chronic obstructive pulmonary disease, unspecified
CPT/HCPCS: 93306